=== PATIENT | female | born 1955 | race African-American/Black ===

== ENCOUNTER 2017-02-16 17:31 | Inpatient (IN) | payer OTHER ==
[2017-02-16] MEDS ORDERED: MORPHINE SULFATE 2 MG/ML SYRINGE IVP STA (18:16)
[2017-02-16] MEDS ORDERED: ASPIRIN 81 MG CHEW PO STA (18:16)
[2017-02-16] MEDS ORDERED: NITROGLYCERIN SL TABS 0.4 MG TAB SUBLINGUAL STA (18:16)
[2017-02-16] MEDS ORDERED: ONDANSETRON 4 MG/2 ML VIAL IVP STA ×2 (18:16→20:24)
[2017-02-16] MEDS ORDERED: SODIUM CHLORIDE 0.9% 500 ML IV ONE (18:17)
[2017-02-16 18:31] LABS: Basophils % (A) 0 %; CH 35.5; CHCM 34.1; Eosinophils # (A) 0.1 k/uL (0-0.7); Eosinophils % (A) 2 %; HCT 42.4 % (34.0-46.0); HDW 2.39; HGB 14.7 gm/dL (11.4-16.0); Luc % (Auto) 2; Lymphocytes # (A) 1.5 k/uL (1.0-4.8); Lymphocytes % (A) 32 %; MCH 36.2 pg (25.0-35.0); MCHC 34.8 g/dL (31.0-37.0); MCV 104.3 fL (80.0-100.0); Macrocytosis Slight; Mean Platelet Volume 7.5; Monocytes # (A) 0.2 k/uL (0-1.0); Monocytes % (A) 4 %; Neutrophils # (A) 2.7 k/uL (1.3-7.7); Neutrophils % (A) 59 %; RBC 4.07 m/uL (3.80-5.40); RDW 14.2 % (11.5-15.5); WBC 4.6 k/uL (3.8-10.6)
[2017-02-16 18:40] LABS: ALT 69 U/L (9-52); AST 112 U/L (14-36); Alkaline Phosphatase 72 U/L (38-126); Anion Gap 13 mmol/L; Blood Urea Nitrogen 6 mg/dL (7-17); Calcium 10.5 mg/dL (8.4-10.2); Carbon Dioxide 27 mmol/L (22-30); Chloride 95 mmol/L (98-107); Glucose 151 mg/dL (74-99); Magnesium 1.2 mg/dL (1.6-2.3); Non-African American GFR(MDRD) >60 (>60 ml/min/1.73 sqM); Potassium 3.8 mmol/L (3.5-5.1); Prothrombin Time 10.5 sec (9.0-12.0); Sodium 135 mmol/L (137-145); Total Bilirubin 1.2 mg/dL (0.2-1.3); Total Protein 8.2 g/dL (6.3-8.2)
[2017-02-16] MEDS ORDERED: SODIUM CHLORIDE 0.9% 1,000 ML IV ONE (18:45)
[2017-02-16 18:51] LABS: Creatine Kinase 80 U/L (30-135)
[2017-02-16] MEDS: MAGNESIUM SULFATE-D5W PMX 1 GM in DEXTROSE/WATER 1 100ML.BAG IVPB SCH ×2 (18:55→20:34)
[2017-02-16] MEDS ORDERED: METOPROLOL TARTRATE 5 MG/5 ML VIAL IVP STA (18:55)
[2017-02-16] MEDS ORDERED: HEPARIN SODIUM,PORCINE 5,000 UNIT/ML 1 ML VIAL IV ONE (18:56)
[2017-02-16] MEDS ORDERED: HEPARIN SODIUM,PORCINE 5,000 UNIT/ML 1 ML VIAL IV PRN (18:56)
[2017-02-16] MEDS ORDERED: HEPARIN SODIUM,PORCINE/D5W PMX 25,000 UNIT in DEXTROSE/WATER 1 500ML.BAG IV SCH (19:00)
[2017-02-16 19:04] LABS: Creatine Kinase MB <0.2 ng/mL (0.0-2.4); Troponin I <0.012 ng/mL (0.000-0.034)
--- NOTE | 2017-02-16 19:32 | XR ---
EXAMINATION TYPE: XR chest 2V DATE OF EXAM: 02/16/2017 COMPARISON: 07/07/2015 HISTORY: Chest pain TECHNIQUE: Frontal and lateral views of the chest are obtained. FINDINGS: There is no heart failure nor confluent pneumonic infiltrate. Costophrenic angles are ernie r. There are chest leads. Bony thorax appears intact. IMPRESSION: No active cardiopulmonary disease. No change.
[2017-02-16] MEDS ORDERED: POTASSIUM CHLORIDE ER 20 MEQ TAB.ER PO STA ×2 (20:17→20:24)
[2017-02-16] MEDS ORDERED: POTASSIUM CHLORIDE 20 MEQ, LIDOCAINE 2% INJ 20 MG in SODIUM CHLORIDE 0.9% 100 ML IVPB ONE (20:24)
[2017-02-16] MEDS: SODIUM CHLORIDE 0.9% 1,000 ML IV SCH (20:44)
[2017-02-16] MEDS ORDERED: MORPHINE SULFATE 4 MG/ML SYRINGE IV PRN (20:49)
[2017-02-16] MEDS ORDERED: NALOXONE 0.4 MG/ML 1 ML VIAL IV PRN (20:49)
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
[2017-02-17 00:10] VITALS: BMI 17.4
[2017-02-17 00:19] LABS: Creatine Kinase 78 U/L (30-135)
[2017-02-17 00:32] LABS: Creatine Kinase MB 0.3 ng/mL (0.0-2.4); Troponin I <0.012 ng/mL (0.000-0.034)
[2017-02-17] MEDS: SODIUM CHLORIDE 0.9% 1,000 ML IV SCH ×2 (06:18→17:09)
[2017-02-17 06:22] LABS: Basophils % (A) 1 %; CH 35.2; CHCM 32.9; Eosinophils # (A) 0.1 k/uL (0-0.7); Eosinophils % (A) 2 %; HCT 33.5 % (34.0-46.0); HDW 2.37; Luc # (Auto) 0.09; Luc % (Auto) 2; Lymphocytes # (A) 1.6 k/uL (1.0-4.8); Lymphocytes % (A) 34 %; MCH 35.5 pg (25.0-35.0); MCV 107.5 fL (80.0-100.0); Macrocytosis Moderate; Mean Platelet Volume 7.6; Monocytes # (A) 0.2 k/uL (0-1.0); Monocytes % (A) 5 %; Neutrophils # (A) 2.5 k/uL (1.3-7.7); Neutrophils % (A) 56 %; RBC 3.12 m/uL (3.80-5.40); RDW 14.5 % (11.5-15.5); WBC 4.5 k/uL (3.8-10.6); WBC (Perox) 4.48
[2017-02-17 06:23] LABS: HGB 11.1 gm/dL (11.4-16.0)
[2017-02-17 06:28] LABS: ALT 50 U/L (9-52); AST 75 U/L (14-36); Alkaline Phosphatase 49 U/L (38-126); Anion Gap 6 mmol/L; Blood Urea Nitrogen 4 mg/dL (7-17); Calcium 8.5 mg/dL (8.4-10.2); Carbon Dioxide 27 mmol/L (22-30); Chloride 105 mmol/L (98-107); Glucose 85 mg/dL (74-99); Magnesium 1.7 mg/dL (1.6-2.3); Non-African American GFR(MDRD) >60 (>60 ml/min/1.73 sqM); Potassium 3.6 mmol/L (3.5-5.1); Sodium 138 mmol/L (137-145); Total Bilirubin 0.8 mg/dL (0.2-1.3); Total Protein 5.8 g/dL (6.3-8.2)
[2017-02-17 06:31] LABS: Creatine Kinase 72 U/L (30-135)
[2017-02-17 06:44] LABS: Creatine Kinase MB 0.3 ng/mL (0.0-2.4); Troponin I <0.012 ng/mL (0.000-0.034)
--- NOTE | 2017-02-17 08:23 | CONS ---
This is a 61-year-old lady with a known history of hypertension, alcoholism, smoking and chest discomfort with recurrent hospital admissions. In July of 2014 she had a cardiac cath which revealed mild noncritical disease in the LAD without significant disease in other vessels. I have seen this in the consultation mentioned but I could not really review the report. This lady comes in with a 2-week history of nausea and 1-week history of vomiting, constipation and then a chest pain in the right side of the chest predominantly and also in the epigastric area. She suggests that this may be because of her vomiting that she has been having. Her potassium is 3.8, magnesium is 1.2. Clinically, she appears to be dehydrated. The quality of her chest pain is quite atypical. EKG revealed a diffuse nonspecific ST-T changes which would also be related to electrolyte imbalance. Her nausea persists but she does not have any chest pain to suggest angina at this time. I reviewed her last dobutamine stress test which was from July of 2015 which was a dobutamine echo that was normal. Cardiac cath from July 2014 was normal. She is resting comfortably without symptoms. Medications at home include amlodipine 10 mg daily. PAST MEDICAL HISTORY: This includes hypertension, recurrent hospitalization with chest pain with an episode of her LV function was quite low globally. Possibility of alcohol-related cardiomyopathy should also be considered. She does not have any documented history of myocardial infarction or CVA. She has history of alcoholism with episodes of intoxication in the past. Home mediations included Norvasc and Zoloft. ALLERGIES: None. REVIEW OF SYSTEMS: Remarkable for nausea, vomiting, constipation, atypical chest pain, alcoholism, smoking. Denies any hematemesis, melena, ( ), no fever, chills or cough, expectoration. Upon arrival, her blood pressure and heart rate were high, but blood pressure now is 118/70, pulse rate is about 88 per minute. HEENT: Unremarkable. Fundus was not examined by me. Neck is supple. There is no JVD. I do not hear a carotid bruit. Heart exam reveals S1, S2 heard normally. No significant murmurs. Lungs are clear. Abdomen is soft. There is no tenderness. Bowel sounds are normal. Lower extremities reveal diminished pulses. Central nervous system is grossly within normal limits. EKG reveals sinus mechanism with diffuse ST abnormality which is a nonspecific type. Laboratory data revealed hypomagnesemia and relative hypokalemia and also has history of normal troponin. IMPRESSION: 1. Dehydration secondary to a probable gastritis. 2. History of cardiomyopathy in the past but LV function had improved in July of 2015 echo. 3. Past history of alcoholism. 4. Previous unremarkable cardiac cath but current presentation with chest pain does not necessarily suggest coronary artery disease. RECOMMENDATIONS: Given her presentation, we will correct the magnesium, potassium, hydrate her. Put her on some heparin for 24 hours, perform serial troponins, echocardiogram and based on this, I will make further recommendations. Discussed my thoughts in detail with the patient and with the emergency room physician. Thank you very much for the consult. DEBRA
[2017-02-17] MEDS: ONDANSETRON 4 MG/2 ML VIAL IVP PRN (08:44)
--- NOTE | 2017-02-17 11:20 | ECHOF ---
Referral Reason:chest pain MEASUREMENTS -------- HEIGHT: 172.7 cm WEIGHT: 51.7 kg BP: 137/88 IVSd: 1.2 cm (0.6 - 1.1) LVIDd: 3.7 cm (3.9 - 5.3) LVPWd: 1.2 cm (0.6 - 1.1) IVSs: 1.1 cm LVIDs: 3.4 cm LVPWs: 1.3 cm LA Diam: 2.9 cm (2.7 - 3.8) LAESV Index (A-L): 31.05 ml/m Ao Diam: 2.8 cm (2.0 - 3.7) AV Cusp: 1.9 cm (1.5 - 2.6) LA Diam: 3.7 cm (2.7 - 3.8) MV EXCURSION: 20.521 mm (> 18.000) MV EF SLOPE: 106 mm/s (70 - 150) EPSS: 0.6 cm MV E Garett: 0.45 m/s MV DecT: 193 ms MV A Garett: 0.66 m/s MV E/A Ratio: 0.68 RAP: 5.00 mmHg RVSP: 31.57 mmHg FINDINGS -------- Sinus rhythm. This was a technically adequate study. There is mild concentric left ventricular hypertrophy. Overall left ventricular systolic function is normal with, an EF between 55 - 60 %. The right ventricle is normal in size. LA is midly dilated 29-33ml/m2. The right atrial size is normal. There is mild aortic valve sclerosis. There is no evidence of aortic regurgitation. Mild mitral annular calcification present. Mild mitral regurgitation is present. Mild tricuspid regurgitation present. There is no evidence of pulmonary hypertension. The right ventricular systolic pressure, as measured by Doppler, is 31.57mmHg. There is no pulmonic regurgitation present. The aortic root size is normal. There is no pericardial effusion. CONCLUSIONS -------- 1. There is mild concentric left ventricular hypertrophy. 2. Overall left ventricular systolic function is normal with, an EF between 55 - 60 %. 3. LA is midly dilated 29-33ml/m2. 4. There is mild aortic valve sclerosis. 5. Mild mitral annular calcification present. 6. Mild mitral regurgitation is present. 7. Mild tricuspid regurgitation present. 8. There is no evidence of pulmonary hypertension. 9. The right ventricular systolic pressure, as measured by Doppler, is 31.57mmHg. [employer] WORK[employer] HELPER: Georgette Melendrez RDCS
[2017-02-17] MEDS: SERTRALINE 50 MG TAB PO SCH (12:11)
[2017-02-17] MEDS: amLODIPine 10 MG TAB PO SCH (12:11)
[2017-02-17] MEDS: MAGNESIUM SULFATE-D5W PMX 1 GM in DEXTROSE/WATER 1 100ML.BAG IVPB SCH ×2 (12:11→14:12)
[2017-02-17] MEDS: POTASSIUM CHLORIDE ER 20 MEQ TAB.ER PO SCH ×3 (12:14→19:32)
--- NOTE | 2017-02-17 12:30 | P.PN ---
Subjective Principal diagnosis: Nausea and vomiting This is a 61-year-old female with history of hypertension, EtOH abuse , nicotine dependence, who has had multiple admissions to the hospital. In July 2014 she underwent a cardiac cath which revealed mild coronary artery disease. Patient presented to the hospital with symptoms of a two-week history of nausea and vomiting. Patient was noted to have diffuse nonspecific ST-T wave changes on her EKG and for this reason a cardiology consultation was requested. Upon review of prior EKGs it's noted that the patient had similar EKG changes in the past. Dobutamine echo in July 2015 was negative for any reversible ischemia. Troponins here were negative 3. From cardiology's perspective we'll follow this patient with you now on an as-needed basis only, please don't hesitate to call with any questions. Objective - Vital Signs Vital signs: Vital Signs Temp 97.3 F L 02/17/17 08:00 Pulse 81 02/17/17 12:00 Resp 16 02/17/17 08:00 BP 139/87 02/17/17 12:00 Pulse Ox 100 02/17/17 12:00 Intake & Output 02/16/17 02/17/17 02/17/17 18:59 06:59 18:59 Intake Total 1450 167.843 Balance 1450 167.843 Weight 52.163 kg 52 kg 52 kg Intake: Intake, IV Titration 1450 167.843 Amount Heparin Sodium,Porcine/ 150 167.843 D5w Pmx 25,000 unit In Dextrose/Water 1 500ml. bag @ 12 UNITS/KG/HR 12. 51 mls/hr IV .Q24H [facility] Rx #:[id number] Potassium Chloride 20 meq 500 Lidocaine 2% Inj 20 mg In Sodium Chloride 0.9% 100 ml @ 55.5 mls/hr IVPB ONCE ONE Rx#:[id number] Sodium Chloride 0.9% 1, 800 000 ml @ 100 mls/hr IV . Q10H [facility] Rx#:[id number] Oral 0 Other: Voiding Method Toilet - Exam PHYSICAL EXAMINATION: HEENT: Head is atraumatic, normocephalic. Pupils equal, round. Neck is supple. There is no elevated jugular venous pressure. HEART EXAMINATION: Heart S1, S2 normal. No murmur or gallop heard. CHEST EXAMINATION: Lungs are clear to auscultation and precussion. No chest wall tenderness is noted on palpation or with deep breathing. ABDOMEN: Soft, tenderness noted in the right flank area . Bowel sounds are heard. No organomegaly noted. EXTREMITIES: 2+ peripheral pulses with no evidence of peripheral edema and no calf tenderness noted. NEUROLOGIC patient is awake, alert and oriented -3. . - Labs CBC & Chem 7: 02/17/17 05:44 02/17/17 05:44 Labs: Abnormal Lab Results - Last 24 Hours (Table) 02/16/17 02/16/17 02/16/17 Range/Units 17:55 17:55 23:51 RBC (3.80-5.40) m/uL Hgb (11.4-16.0) gm/dL Hct (34.0-46.0) % MCV 104.3 H (80.0-100.0) fL MCH 36.2 H (25.0-35.0) pg APTT 48.9 H (22.0-30.0) sec Sodium 135 L (137-145) mmol/L Chloride 95 L (98-107) mmol/L BUN 6 L (7-17) mg/dL Glucose 151 H (74-99) mg/dL Calcium 10.5 H (8.4-10.2) mg/dL Magnesium 1.2 L (1.6-2.3) mg/dL AST 112 H (14-36) U/L ALT 69 H (9-52) U/L Total Protein (6.3-8.2) g/dL Albumin 5.2 H (3.5-5.0) g/dL 02/17/17 02/17/17 02/17/17 Range/Units 05:44 05:44 05:44 RBC 3.12 L (3.80-5.40) m/uL Hgb 11.1 L D (11.4-16.0) gm/dL Hct 33.5 L (34.0-46.0) % MCV 107.5 H (80.0-100.0) fL MCH 35.5 H (25.0-35.0) pg APTT 31.9 H (22.0-30.0) sec Sodium (137-145) mmol/L Chloride (98-107) mmol/L BUN 4 L (7-17) mg/dL Glucose (74-99) mg/dL Calcium (8.4-10.2) mg/dL Magnesium (1.6-2.3) mg/dL AST 75 H (14-36) U/L ALT (9-52) U/L Total Protein 5.8 L (6.3-8.2) g/dL Albumin (3.5-5.0) g/dL Assessment and Plan (1) Hypomagnesemia Status: Acute (2) ST segment depression Status: Acute (3) Alcohol intoxication Status: Acute (4) Hyperlipemia Status: Acute (5) Nausea & vomiting Status: Acute (6) Nicotine dependence Status: Acute (7) Noncompliance with medication regimen Status: Acute Plan: Troponins have been negative 3, from cardiology's perspective, we'll follow this patient with you now on an as-needed basis only, please don't hesitate to call with any questions. DNP note has been reviewed, I agree with a documented findings and plan of care. Patient was seen and examined.
[2017-02-17] MEDS ORDERED: ALPRAZolam 0.25 MG TAB PO PRN (13:52)
[2017-02-17] MEDS ORDERED: LORazepam 1 MG TAB PO PRN (15:50)
[2017-02-17] MEDS: PANTOPRAZOLE 40 MG/10 ML VIAL IVP SCH (17:09)
--- NOTE | 2017-02-17 19:19 | US ---
EXAMINATION TYPE: US abdomen complete DATE OF EXAM: 02/17/2017 COMPARISON: NONE CLINICAL HISTORY: stomach pain. Nausea, vomiting EXAM MEASUREMENTS: Liver Length: 15.2 cm Gallbladder Wall: 0.2 cm CBD: 0.5 cm Spleen: 5.6 cm Right Kidney: 10.7 x 3.8 x 4.5 cm Left Kidney: 10.1 x 5.7 x 5.0 cm Pancreas: Obscured by bowel gas Liver: wnl Gallbladder: Appears enlarged, no stones visualized Evidence for sonographic Garcia's sign: No CBD: wnl Spleen: wnl Right Kidney: No hydronephrosis or masses seen otherwise negative exam. Left Kidney: Cyst visualized upper pole measuring 1.0cm Upper IVC: wnl Abd Aorta: wnl IMPRESSION: The gallbladder is large but does not appear enlarged. The diameter is 3.6 cm. No dilated ducts. Otherwise negative exam.
[2017-02-18] MEDS: SODIUM CHLORIDE 0.9% 1,000 ML IV SCH ×3 (03:06→21:04)
[2017-02-18] MEDS: SERTRALINE 50 MG TAB PO SCH (08:37)
[2017-02-18] MEDS: PANTOPRAZOLE 40 MG/10 ML VIAL IVP SCH (08:37)
[2017-02-18] MEDS: amLODIPine 10 MG TAB PO SCH (08:37)
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
[2017-02-18 12:20] LABS: Hepatitis B Surface Ag Index 0.05
[2017-02-18 12:26] LABS: Hepatitis B Core IgM Index 0.05
--- NOTE | 2017-02-18 12:54 | HP ---
DATE OF SERVICE: 02/17/2017 CHIEF COMPLAINT: Chest pain and abdominal pain. HISTORY OF PRESENT ILLNESS: This 61-year-old woman with a past medical history of multiple medical problems including history of CHF, CVA, TIA, diabetes mellitus, hypertension, hyperlipidemia, history of pneumonia, history of gastritis; being followed in the outpatient, is complaining of epigastric and chest pain. The patient came to [facility] and admitted for further evaluation and treatment. The patient also reports some stress. The patient is also a daily smoker. PAST MEDICAL HISTORY: History of CHF, history of CVA, TIA, diabetes mellitus, hypertension, hyperlipidemia and pneumonia. MEDICATIONS PRIOR TO ADMISSION: Home medications are: 1. Zoloft 50 mg p.o. daily. 2. Norvasc 10 mg daily. ALLERGIES: None. FAMILY HISTORY: History of hypertension in the family. SOCIAL HISTORY: History of smoking, occasional alcohol intake. REVIEW OF SYSTEMS: ENT: No diminished hearing or vision. CARDIOVASCULAR: As mentioned earlier. RESPIRATORY: As mentioned earlier. GI: As mentioned earlier. : No dysuria. NERVOUS SYSTEM: No numbness or weakness. IMMUNOLOGY/ALLERGY: No asthma, hayfever. MUSCULOSKELETAL: As mentioned earlier. HEMATOLOGY: No history of anemia. ENDOCRINE: No history of hypothyroidism. CONSTITUTIONAL: As mentioned earlier. PSYCHIATRIC: As mentioned earlier. PHYSICAL EXAMINATION: Alert and oriented x3. Pulse 75, blood pressure 149/90, respirations 16, temperature 96.3, pulse ox 99% on room air. HEENT: Conjunctivae normal. Oral mucosa moist. NECK: No jugular venous distention. No thyroid enlargement, no lymph node enlargement. CARDIOVASCULAR: S1/.S2. RESPIRATIONS: Diminished breath sounds, especially at the bases. A few scattered rhonchi, no crackles. ABDOMEN: Soft. Mild diffuse tenderness in the epigastrium. No mass palpable. LEGS: No edema, no swelling. NERVOUS SYSTEM: No focal deficits. LABS: WBC 4.2, hemoglobin 11.1. Otherwise, total bilirubin is 1.2. ASSESSMENT: 1. Epigastric and chest pain, rule out coronary artery disease. 2. Rule out acute gastritis. 3. Mild coronary artery disease and cardiac catheterization in 2014. 4. History of EtOH. 5. History of cerebrovascular accident/transient ischemic attack. 6. Seizure disorder. RECOMMENDATIONS AND DISCUSSION: This 61-year-old woman presented with multiple complex medical issues. We will monitor the patient closely, continue the current medication, continue the symptomatic treatment, obtain gastroenterology and cardiology consultation. Guarded prognosis because of multiple complex medical issues. Ativan p.r.n. Alcohol cessation has been advised. Proton pump inhibitors. See orders for further details. MTDD
[2017-02-18 12:56] LABS: Hepatitis C Virus IgG Ab Negative (Negative); Hepatitis C Virus IgG Index 0.32
[2017-02-18] MEDS: ACETAMINOPHEN TAB 325 MG TAB PO PRN (18:00)
[2017-02-19] MEDS: SODIUM CHLORIDE 0.9% 1,000 ML IV SCH ×2 (06:03→09:26)
[2017-02-19 08:19] LABS: Basophils % (A) 0 %; CH 35.8; CHCM 32.5; Eosinophils # (A) 0.2 k/uL (0-0.7); Eosinophils % (A) 4 %; HCT 36.1 % (34.0-46.0); HDW 2.39; Luc # (Auto) 0.11; Luc % (Auto) 2; Lymphocytes # (A) 1.3 k/uL (1.0-4.8); Lymphocytes % (A) 25 %; MCH 36.7 pg (25.0-35.0); MCHC 33.2 g/dL (31.0-37.0); MCV 110.5 fL (80.0-100.0); Macrocytosis Marked; Monocytes # (A) 0.3 k/uL (0-1.0); Monocytes % (A) 6 %; Neutrophils # (A) 3.3 k/uL (1.3-7.7); Neutrophils % (A) 63 %; RBC 3.27 m/uL (3.80-5.40); RDW 14.8 % (11.5-15.5); WBC 5.3 k/uL (3.8-10.6); WBC (Perox) 5.54
[2017-02-19 08:25] LABS: Anion Gap 10 mmol/L; Blood Urea Nitrogen 5 mg/dL (7-17); Calcium 9.8 mg/dL (8.4-10.2); Carbon Dioxide 25 mmol/L (22-30); Chloride 103 mmol/L (98-107); Glucose 96 mg/dL (74-99); Magnesium 1.4 mg/dL (1.6-2.3); Non-African American GFR(MDRD) >60 (>60 ml/min/1.73 sqM); Potassium 3.7 mmol/L (3.5-5.1); Sodium 138 mmol/L (137-145)
[2017-02-19] MEDS ORDERED: IV FLUID CONTINUATION 1,000 ML IV ONE (08:44)
[2017-02-19] MEDS ORDERED: PROPOFOL 10 MG/ML 20 ML VIAL IV ONE (08:48)
[2017-02-19] MEDS ORDERED: LIDOCAINE 1% INJ 10MG/ML (20 ML MDV) ONE (08:48)
[2017-02-19 08:50] LABS: Manual Review Performed
[2017-02-19] MEDS: PANTOPRAZOLE 40 MG/10 ML VIAL IVP SCH (09:19)
[2017-02-19] MEDS: amLODIPine 10 MG TAB PO SCH (09:19)
[2017-02-19] MEDS: SERTRALINE 50 MG TAB PO SCH (09:19)
--- NOTE | 2017-02-19 09:23 | P.PCN ---
Date of Procedure: 02/19/17 Preoperative Diagnosis: Postoperative Diagnosis: Procedure(s) Performed: Procedure: Esophagogastroduodenoscopy and biopsy. Preoperative diagnosis: Epigastric pain, nausea and vomiting. Postoperative diagnosis: 1. Small sliding hiatal hernia with no obvious esophagitis or complicated reflux disease. 2. Mild gastritis and duodenitis with no ulcers or gastric outlet obstruction. 3. Multiple biopsies obtained from the duodenum, antrum and esophagus. Preparation sedation: Was provided by anesthesia. Brief clinical history: The patient is a 61-year-old female with a past medical history of chest pain, heart failure, diabetes, hyperlipidemia, hypertension, CVA/TIA, long-standing EtOH consumption/EtOH abuse, and anxiety, presented with chest and epigastric pain with nausea vomiting. Patient stated she had this type of pain that feels like an elephant sitting on her chest sometimes radiates upper esophagus to her throat along with migraines for at least 7 years. Denies fever or chills, hematemesis hematochezia or melena. Unsure if shes had an EGD in the past. Had colonoscopy about 2-3 years ago, to her memory normal. Had 5 pound weight loss over the last month. Her epigastric pain is not necessarily associated with meals but can be sometimes awaken her in the night but not often. Denies diarrhea that has chronic constipation. No changes in medications. She drinks alcohol 4-5 drinks sometimes daily sometimes every few weeks it depends. Last alcohol drink more than a week prior to admission. Ultrasound abdomen showed gallbladder enlarged but no stones. CBD normal. Liver 15 cm. Gallbladder wall 0.2 cm. Hemoglobin 11.1-14.7. White count 4.5. MCV 107. Platelet 279. INR 1.0. BUN 6. Creatinine 0.7. Total bilirubin 0.8- 1.2. AST 75-112. ALT 50-69. Alkaline phosphatase 49-72. Albumin 3.6-5.2. Lipase 179. Troponin less than 0.01 to 3. The details are summarized in the history and physical and dictated consultation. This evaluation is to assess for peptic ulcer disease, gastric outlet obstruction or gastroparesis. Procedure: With the patient on her left lateral decubitus position and after informed consent and adequate sedation, I passed the Olympus-GIF 160 video upper endoscope through the cricopharyngeus down the esophagus. GE junction was around 36 cm from the incisors and there was a small sliding hiatal hernia. The esophagus did not show any obvious erosions, ulcers, strictures or Grimaldo 's esophagus. The endoscope was then passed into the stomach which was insufflated with air and inspected in detail including the retroflex view in the cardia. There was minimal mottling and erythema in the antrum but no ulcers or erosions. Pyloric channel, duodenal bulb, post bulbar area and descending duodenum showed minimal erythema. There were no ulcers, gastric outlet obstruction or any evidence of gastroparesis. I obtained biopsies from the duodenum, antrum and esophagus then the endoscope was withdrawn. The patient tolerated the procedure well. Plan: The patient was reassured. Will await biopsy results. Will continue symptomatic treatment and acid suppression. Will allow diet as tolerated. Further plans based on her course and biopsy results. Will keep you updated on her progress. Implants: Indications for Procedure: Operative Findings: Description of Procedure:
[2017-02-19] MEDS: LACTATED RINGERS 1,000 ML IV SCH (09:26)
[2017-02-19] MEDS ORDERED: Magnesium Replacement Protocol 1 EACH MISC MISCELLANE PRN (11:59)
[2017-02-19] MEDS: MAGNESIUM SULFATE-D5W PMX 1 GM in DEXTROSE/WATER 1 100ML.BAG IVPB SCH ×3 (12:40→15:03)
[2017-02-19] MEDS: MAGNESIUM OXIDE 400 MG TAB PO SCH (21:10)
[2017-02-19] MEDS: ACETAMINOPHEN TAB 325 MG TAB PO PRN ×2 (21:21)
[2017-02-19] MEDS: ONDANSETRON 4 MG/2 ML VIAL IVP PRN (21:21)
[2017-02-19 22:38] VITALS: RESP 16
--- NOTE | 2017-02-19 23:51 | P.PN ---
Subjective Principal diagnosis: Nausea vomiting and abdominal pain This is a 61-year-old female with history of hypertension, EtOH abuse , nicotine dependence, who has had multiple admissions to the hospital presented to the hospital with symptoms of a two-week history of nausea and vomiting. In July 2014 she underwent a cardiac cath which revealed mild coronary artery disease. EGD on 02/19/2017 showed: 1. Small sliding hiatal hernia with no obvious esophagitis or complicated reflux disease. 2. Mild gastritis and duodenitis with no ulcers or gastric outlet obstruction. Today patient denied any complaints no abdominal pain. Complaints of nauseaor vomiting. No chest pain no short of breath. No acute overnight issues. Patient underwent EGD today ROS CONSTITUTIONAL: No fever, no malaise, no fatigue. HEENT: No recent visual problems or hearing problems. Denied any sore throat. CARDIOVASCULAR: No chest pain, orthopnea, PND, no palpitations, no syncope. PULMONARY: , no hemoptysis. GASTROINTESTINAL: No diarrhea, epigastric abdominal pain and nausea no vomiting NEUROLOGICAL: No headaches, no weakness, no numbness. HEMATOLOGICAL: Denies any bleeding or petechiae. GENITOURINARY: Denies any burning micturition, frequency, or urgency. MUSCULOSKELETAL/RHEUMATOLOGICAL: Denies any joint pain, swelling, or any muscle pain. ENDOCRINE: Denies any polyuria or polydipsia. The rest of the 14-point review of systems is negative Objective - Vital Signs Vital signs: Vital Signs Temp 97.4 F L 02/19/17 15:06 Pulse 99 02/19/17 15:06 Resp 18 02/19/17 15:06 BP 102/65 02/19/17 15:06 Pulse Ox 100 02/19/17 15:06 Intake & Output 02/19/17 02/19/17 02/20/17 06:59 18:59 06:59 Intake Total 160 140 Output Total 200 Balance -40 140 Weight 52.3 kg Intake: IV 100 Intake, IV Titration 160 40 Amount Lactated Ringers 1,000 ml 40 @ 20 mls/hr IV .Q24H JAYA Rx#:[id number] Sodium Chloride 0.9% 1, 160 000 ml @ 100 mls/hr IV . Q10H JAYA Rx#:[id number] Oral 0 Output: Urine 200 Other: Voiding Method Toilet Toilet # Voids 2 0 - Exam .PHYSICAL EXAMINATION: HEENT: Head is atraumatic, normocephalic. Pupils equal, round. Neck is supple. There is no elevated jugular venous pressure. HEART EXAMINATION: Heart S1, S2 normal. No murmur or gallop heard. CHEST EXAMINATION: Lungs are clear to auscultation and precussion. No chest wall tenderness is noted on palpation or with deep breathing. ABDOMEN: Soft, tenderness noted in the right flank area . Bowel sounds are heard. No organomegaly noted. EXTREMITIES: 2+ peripheral pulses with no evidence of peripheral edema and no calf tenderness noted. NEUROLOGIC patient is awake, alert and oriented -3. - Labs CBC & Chem 7: 02/19/17 08:01 02/19/17 07:58 Labs: Abnormal Lab Results - Last 24 Hours (Table) 02/19/17 02/19/17 Range/Units 07:58 08:01 RBC 3.27 L (3.80-5.40) m/uL MCV 110.5 H (80.0-100.0) fL MCH 36.7 H (25.0-35.0) pg Plt Count 132 L (150-450) k/uL BUN 5 L (7-17) mg/dL Magnesium 1.4 L (1.6-2.3) mg/dL Assessment and Plan Plan: #1 epigastric abdominal pain secondary to gastritis and duodenitis. #2 chest pain ruled out acute coronary syndrome. Serial troponins negative. #3. Severe Alcohol abuse. counseled extensively #4 nicotine addiction #5 noncompliance with medications #6 history of seizures #7 history of nonobstructive coronary artery disease #8 hypertension #9 noncompliance DVT prophylaxis Plan: Patiently continued on Protonix. Continue to monitor for alcohol withdrawal symptoms. Cardiology records no further workup at this time. We will replace magnesium and follow closely. Further recommendations based on the clinical course. Patient is non-complaint with medications. Time with Patient: Greater than 30
[2017-02-20] MEDS: HEPARIN SODIUM,PORCINE 5,000 UNIT/ML 1 ML VIAL SQ SCH ×3 (01:08→16:33)
[2017-02-20] MEDS: SODIUM CHLORIDE 0.9% 1,000 ML IV SCH ×2 (05:07→16:33)
[2017-02-20] MEDS: amLODIPine 10 MG TAB PO SCH (09:14)
[2017-02-20] MEDS: MAGNESIUM OXIDE 400 MG TAB PO SCH (09:14)
[2017-02-20] MEDS: PANTOPRAZOLE 40 MG/10 ML VIAL IVP SCH (09:14)
[2017-02-20 11:20] VITALS: PULSE 82
[2017-02-20] MEDS ORDERED: THIAMINE 100 MG TAB PO SCH (12:00)
[2017-02-20] MEDS: LACTATED RINGERS 1,000 ML IV SCH (12:03)
[2017-02-20] MEDS: SERTRALINE 50 MG TAB PO SCH (12:09)
[2017-02-20 16:32] VITALS: BP 128/68; TEMP 97.6
--- NOTE | 2017-02-22 01:03 | P.DS ---
Providers Date of admission: 02/16/17 20:49 Expected date of discharge: 02/20/17 Attending physician: Paco Ferris Consults: 02/16/17 20:49 Consult Physician Stat Consulting Provider: Jairo Cervantes Consult Reason/Comments: Chest pain with EKG changes Do you want consulting provider notified?: Already Contacted 02/17/17 13:51 Consult Physician Urgent Consulting Provider: Cassie Alfaro Consult Reason/Comments: stomach pain Do you want consulting provider notified?: Yes Primary care physician: [facility] Hospital Course: Discharge diagnosis #1 epigastric abdominal pain secondary to gastritis and duodenitis. #2 chest pain ruled out acute coronary syndrome. Serial troponins negative. #3. Severe Alcohol abuse. counseled extensively #4 nicotine addiction #5 noncompliance with medications #6 history of seizures #7 history of nonobstructive coronary artery disease #8 hypertension #9 noncompliance DVT prophylaxis Hospital course : This is a 61-year-old female with history of hypertension, EtOH abuse , nicotine dependence, who has had multiple admissions to the hospital presented to the hospital with symptoms of a two-week history of nausea and vomiting. In July 2014 she underwent a cardiac cath which revealed mild coronary artery disease. EGD on 02/19/2017 showed: 1. Small sliding hiatal hernia with no obvious esophagitis or complicated reflux disease. 2. Mild gastritis and duodenitis with no ulcers or gastric outlet obstruction. Today patient denied any complaints no abdominal pain. Complaints of nauseaor vomiting. No chest pain no short of breath. No acute overnight issues. Patient was continued on Protonix. Continued to monitor for alcohol withdrawal symptoms. Cardiology recommends no further workup at this time. replace magnesium, Patient is non-complaint with medications. Patient advised to be complaint with her medications. Otherwise patient is stable to be discharged home. PHYSICAL EXAMINATION: Patient is lying in the bed comfortably, no acute distress, awake alert and oriented.. HEENT: Normocephalic. Neck is supple. Pupils reactive. Nostrils clear. Oral cavity is moist. Ears reveal no drainage. Neck reveals no JVD, carotid bruits, or thyromegaly. CHEST EXAMINATION: Trachea is central. Symmetrical expansion. Lung higgins clear to auscultation and percussion. CARDIAC: Normal S1, S2 with no gallops. No murmurs ABDOMEN: Soft. Bowel sounds normal. No organomegaly. No abdominal bruits. Extremities reveal no edema. No clubbing or cyanosis Neurologically awake, alert, oriented x3 with well-coordinated movements. Skin: no rash or skin lesions Musculoskeletal: no joint swelling or deformity. Patient Condition at Discharge: Stable Plan - Discharge Summary New Discharge Prescriptions: New Magnesium Oxide [Mag-Ox] 400 mg PO BID #10 tab Pantoprazole Sodium [Protonix] 40 mg PO AC-BRKFST #30 tablet. Thiamine [Vitamin B-1] 100 mg PO DAILY@1200 #30 tab Continue amLODIPine [Norvasc] 10 mg PO DAILY Sertraline HCl [Zoloft] 50 mg PO DAILY Discharge Medication List amLODIPine [Norvasc] 10 mg PO DAILY 01/12/16 [History] Sertraline HCl [Zoloft] 50 mg PO DAILY 02/16/17 [History] Magnesium Oxide [Mag-Ox] 400 mg PO BID #10 tab 02/20/17 [Rx] Pantoprazole Sodium [Protonix] 40 mg PO AC-BRKFST #30 tablet. 02/20/17 [Rx] Thiamine [Vitamin B-1] 100 mg PO DAILY@1200 #30 tab 02/20/17 [Rx] Follow up Appointment(s)/Referral(s): Tyrone Bynum MD [Primary Care Provider] - 1-2 days Patient Instructions/Handouts: Gastritis (DC) Discharge Disposition: HOME SELF-CARE
== END 2017-02-20 17:23 | disposition home or self-care (01) | DRG 392 ==
LOC: EC 17:31 → 6SEL 20:49
PROVIDERS: ADMIT Internal Medicine; ATTEND Internal Medicine
PROC: 0DB58ZX Excision of Esophagus, Via Natural or Artificial Opening Endoscopic, Diagnostic (ICD-10-PCS; 2017-02-19)
PROC: 0DB78ZX Excision of Stomach, Pylorus, Via Natural or Artificial Opening Endoscopic, Diagnostic (ICD-10-PCS; 2017-02-19)
PROC: 0DB98ZX Excision of Duodenum, Via Natural or Artificial Opening Endoscopic, Diagnostic (ICD-10-PCS; principal; 2017-02-19 08:00)
DX: K29.70 Gastritis, unspecified, without bleeding (principal); E83.42 Hypomagnesemia; I10 Essential (primary) hypertension; I25.10 Atherosclerotic heart disease of native coronary artery without angina pectoris; K29.80 Duodenitis without bleeding; K44.9 Diaphragmatic hernia without obstruction or gangrene; G40.909 Epilepsy, unspecified, not intractable, without status epilepticus; E86.0 Dehydration; R73.09 Other abnormal glucose; E87.6 Hypokalemia; R74.0 Nonspecific elevation of levels of transaminase and lactic acid dehydrogenase [LDH]; K59.09 Other constipation; E78.5 Hyperlipidemia, unspecified; R07.89 Other chest pain; K82.8 Other specified diseases of gallbladder; F10.10 Alcohol abuse, uncomplicated; R94.31 Abnormal electrocardiogram [ECG] [EKG]; F41.0 Panic disorder [episodic paroxysmal anxiety]; R41.3 Other amnesia; F41.9 Anxiety disorder, unspecified; R63.4 Abnormal weight loss; R20.0 Anesthesia of skin; G43.909 Migraine, unspecified, not intractable, without status migrainosus; F17.210 Nicotine dependence, cigarettes, uncomplicated; Z79.899 Other long term (current) drug therapy; Z87.01 Personal history of pneumonia (recurrent); Z86.73 Personal history of transient ischemic attack (TIA), and cerebral infarction without residual deficits; Z82.49 Family history of ischemic heart disease and other diseases of the circulatory system; Z91.19 Patient's noncompliance with other medical treatment and regimen; Z91.14 Patient's other noncompliance with medication regimen; Z71.3 Dietary counseling and surveillance; Z90.710 Acquired absence of both cervix and uterus; Z71.41 Alcohol abuse counseling and surveillance of alcoholic; Z63.79 Other stressful life events affecting family and household; Z56.0 Unemployment, unspecified; Z86.79 Personal history of other diseases of the circulatory system; Z87.828 Personal history of other (healed) physical injury and trauma
CPT/HCPCS: 36415; 43239; 71020; 76700; 80048; 80053; 80074; 82550; 82553; 83690; 83735; 83880; 84443; 84484; 85025; 85610; 85730; 88305; 88342; 93005; 93306; 94760; 96365; 96368; 96375; 96376; 99291

== ENCOUNTER 2019-01-26 17:32 | Emergency (ER) | payer OTHER ==
[2019-01-26 17:48] VITALS: RESP 18; TEMP 98.7
[2019-01-26] MEDS ORDERED: SODIUM CHLORIDE 0.9% 1,000 ML IV STA ×2 (17:49)
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
[2019-01-26 18:19] LABS: Basophils % (A) 0 %; Eosinophils # (A) 0.1 k/uL (0-0.7); Eosinophils % (A) 2 %; HCT 39.4 % (34.0-46.0); HGB 12.9 gm/dL (11.4-16.0); Lymphocytes # (A) 1.3 k/uL (1.0-4.8); Lymphocytes % (A) 22 %; MCH 34.8 pg (25.0-35.0); MCHC 32.6 g/dL (31.0-37.0); MCV 106.8 fL (80.0-100.0); Macrocytosis Moderate; Mean Platelet Volume 8.4; Monocytes # (A) 0.5 k/uL (0-1.0); Monocytes % (A) 9 %; Neutrophils # (A) 3.7 k/uL (1.3-7.7); Neutrophils % (A) 64 %; Platelet Count 237 k/uL (150-450); RBC 3.69 m/uL (3.80-5.40); WBC 5.7 k/uL (3.8-10.6)
[2019-01-26 18:56] LABS: INR 0.9 (<1.2); Partial Thromboplastin Time 24.1 sec (22.0-30.0); Prothrombin Time 9.9 sec (9.0-12.0)
--- NOTE | 2019-01-26 19:03 | XR ---
EXAMINATION: XR chest 2V DATE AND TIME: 01/26/2019 6:25 PM CLINICAL INDICATION: PHH; Weakness TECHNIQUE: Departmental protocol COMPARISON: 02/16/2017 FINDINGS: The lungs are clear. The pleural spaces are negative. The cardiac silhouette is not enlarged. The remainder of the mediastinal silhouette is unremarkable. The skeletal structures and soft tissues are negative for acute findings. Remodeled right posterior ninth rib fracture noted, consistent with remote fracture, having occurred after the comparison study. IMPRESSION: No acute process.
[2019-01-26 19:19] LABS: ALT 12 U/L (9-52); AST 16 U/L (14-36); African American GFR (CKD) >90 (>60 ml/min/1.73 sqM); Alkaline Phosphatase 42 U/L (38-126); Anion Gap 12 mmol/L; Blood Urea Nitrogen 11 mg/dL (7-17); Calcium 9.2 mg/dL (8.4-10.2); Carbon Dioxide 23 mmol/L (22-30); Chloride 101 mmol/L (98-107); Creatine Kinase 24 U/L (30-135); Glucose 108 mg/dL (74-99); Magnesium 1.3 mg/dL (1.6-2.3); Potassium 3.5 mmol/L (3.5-5.1); Sodium 136 mmol/L (137-145); Total Bilirubin 0.6 mg/dL (0.2-1.3); Total Protein 6.5 g/dL (6.3-8.2)
[2019-01-26] MEDS ORDERED: MAGNESIUM SULFATE-D5W PMX 1 GM in DEXTROSE/WATER 1 100ML.BAG IVPB ONE (19:28)
--- NOTE | 2019-01-26 20:49 | CT ---
EXAMINATION TYPE: CT abdomen pelvis w con DATE OF EXAM: 01/26/2019 COMPARISON: 04/07/2015 HISTORY: abdominal pain and weakness CT DLP: 442.2 mGycm Automated exposure control for dose reduction was used. TECHNIQUE: Helical acquisition of images was performed from the lung bases through the pelvis. CONTRAST: Performed without Oral Contrast and with IV Contrast, patient injected with 100 mL of Isovu e 300. FINDINGS: LUNG BASES: No acute process. However, mild cardiomegaly is noted. LIVER/GB: No significant abnormality is appreciated. PANCREAS: No significant abnormality is seen. SPLEEN: No significant abnormality is seen. ADRENALS: No significant abnormality is seen. KIDNEYS: No significant abnormality is seen. FREE AIR: No free air is visualized. RETROPERITONEAL ADENOPATHY: None visualized REPRODUCTIVE ORGANS: No significant abnormality is seen URINARY BLADDER: No significant abnormality is seen. PELVIC ADENOPATHY: None visualized. OSSEOUS STRUCTURES: No significant abnormality is seen. BOWEL: The gastric antrum shows hypodense circumferential mural thickening consistent with edematous thickening, which can correlate with a clinical diagnosis of gastritis and can be confirmed with dire ct visualization. There is a differential diagnosis for this finding, but gastritis is the favored et iology radiographically. The appendix has normal appearance. OTHER: No acute vascular findings. IMPRESSION: GASTRIC ANTRUM MURAL THICKENING DISCUSSED.
[2019-01-26 21:55] LABS: Appearance,Urine Cloudy (Clear); Bacteria,Urine Occasional /hpf; Bilirubin,Urine 1+ (Negative); Blood,Urine Small (Negative); Color,Urine Yellow; Glucose,Urine (UA) Negative (Negative); Ketones,Urine 3+ (Negative); Leukocyte Esterase,Urine Large (Negative); Mucus,Urine Rare /hpf; Nitrite,Urine Negative (Negative); PH, Urine 6.5 (5.0-8.0); Protein,Urine 1+ (Negative); RBC,Urine 32 /hpf (0-5); Squamous Epithelial Cell,Urine 5 /hpf (0-4); WBC,Urine 25 /hpf (0-5)
[2019-01-26 21:57] LABS: Specific Gravity,Urine >1.050 (1.001-1.035)
[2019-01-26 22:38] VITALS: BP 155/99; PULSE 84
== END 2019-01-26 22:45 | disposition home or self-care (01) ==
LOC: SUPCPDRO 17:32 → EC 17:32
DX: E83.42 Hypomagnesemia (principal); K29.00 Acute gastritis without bleeding; E86.0 Dehydration; I11.0 Hypertensive heart disease with heart failure; I50.9 Heart failure, unspecified; R00.0 Tachycardia, unspecified; R07.89 Other chest pain; F17.200 Nicotine dependence, unspecified, uncomplicated; Z95.818 Presence of other cardiac implants and grafts; Z86.73 Personal history of transient ischemic attack (TIA), and cerebral infarction without residual deficits; Z82.49 Family history of ischemic heart disease and other diseases of the circulatory system
CPT/HCPCS: 36415; 93005; 83880; 80053; 82550; 83605; 83690; 83735; 84484; 85025; 85610; 85730; 81001; 71046; 74177; 99285; 96365; 96361 ×4; J3475; Q9967

== ENCOUNTER 2020-12-18 12:53 | Inpatient (IN) | payer OTHER ==
[2020-12-18] MEDS ORDERED: NITROGLYCERIN SL TABS 0.4 MG TAB SUBLINGUAL STA ×3 (13:17)
[2020-12-18] MEDS ORDERED: ASPIRIN 81 MG PO STA (13:17)
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
[2020-12-18] MEDS ORDERED: HEPARIN SODIUM 1,000 UN/ML (10ML VL) IV ONE (13:37)
[2020-12-18] MEDS ORDERED: HEPARIN SODIUM 1,000 UN/ML (10ML VL) IV PRN (13:37)
--- NOTE | 2020-12-18 13:38 | XR ---
EXAMINATION TYPE: XR chest 1V portable DATE OF EXAM: 12/18/2020 COMPARISON: Chest x-ray 01/26/2019 HISTORY: Chest pain TECHNIQUE: Single frontal view of the chest is obtained. FINDINGS: There is no focal air space opacity, pleural effusion, or pneumothorax seen. The cardiac silhouette size is stable. There are overlying leads, patient is rotated. There may be spinal curvat ure. Old right posterior rib fracture present within either level as on prior shows an irregular appe arance. Prominent lung volumes may be indicative of COPD. Aorta is dense. The osseous structures are intact. IMPRESSION: No acute process.
[2020-12-18] MEDS ORDERED: HEPARIN SOD,PORK IN 0.45% NACL 25,000 UNIT in 0.45% NACL 1 250ML.BAG IV SCH (13:45)
[2020-12-18 13:53] LABS: Basophils % (A) 0 %; Eosinophils # (A) 0.1 k/uL (0-0.7); Eosinophils % (A) 2 %; HCT 48.7 % (34.0-46.0); HGB 16.7 gm/dL (11.4-16.0); Lymphocytes # (A) 2.1 k/uL (1.0-4.8); Lymphocytes % (A) 32 %; MCH 36.4 pg (25.0-35.0); MCHC 34.4 g/dL (31.0-37.0); MCV 105.7 fL (80.0-100.0); Macrocytosis Moderate; Mean Platelet Volume 8.3; Monocytes # (A) 0.3 k/uL (0-1.0); Monocytes % (A) 5 %; Neutrophils # (A) 3.8 k/uL (1.3-7.7); Neutrophils % (A) 59 %; Platelet Count 222 k/uL (150-450); RDW 14.7 % (11.5-15.5); WBC 6.5 k/uL (3.8-10.6)
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
[2020-12-18 14:01] LABS: Albumin 5.2 g/dL (3.5-5.0); Calcium 9.8 mg/dL (8.4-10.2); Magnesium 1.8 mg/dL (1.6-2.3); Total Bilirubin 0.9 mg/dL (0.2-1.3); Total Protein 8.3 g/dL (6.3-8.2)
[2020-12-18] MEDS ORDERED: LIDOCAINE 1% INJ 10MG/ML (20 ML MDV) SQ ONE (14:03)
[2020-12-18] MEDS ORDERED: fentaNYL (PF) 50 MCG/ML 2 ML AMP IV ONE (14:05)
[2020-12-18] MEDS ORDERED: MIDAZOLAM 2 MG/2 ML VIAL IV ONE (14:05)
[2020-12-18] MEDS ORDERED: IV FLUID CONTINUATION 1,000 ML IV ONE (14:05)
[2020-12-18 14:11] LABS: Potassium 5.4 mmol/L (3.5-5.1)
[2020-12-18] MEDS ORDERED: IOPAMIDOL-370 125ML BTL INJ ONE (14:16)
[2020-12-18] MEDS ORDERED: RX INFO: IV CONTRAST WAS GIVEN 1 EACH MISC MISCELLANE PRN (14:19)
--- NOTE | 2020-12-18 14:32 | P.CARDCATH ---
Date of Procedure: 12/18/20 Preoperative Diagnosis: Suspected STEMI Postoperative Diagnosis: Mild coronary artery disease Procedure(s) Performed: Left heart catheterization with left ventriculography Description of Procedure: HISTORY: This is a 65-year-old female with history of hypertension who presented to the emergency room with complaints of chest pain for the last week or so. She was having discomfort described as 8-9 on a scale of 1-10. EKG showed mild ST elevation in V1, V2 and the attached ST depressions in the inferolateral leads. In view of ongoing chest pain and abnormal EKG, patient is advised to have a cardiac catheterization for definitive diagnosis and further intervention as needed CONSENT:I have discussed the risks, benefits and alternative therapies for the above-mentioned procedure and for both sedation/analgesia as well as necessary blood product administration, if indicated, as they pertain to this patient. The patient has indicated understanding and acceptance of the risks and procedures discussed. PROCEDURE: Patient was brought to the lab in a fasting state. Patient was given some IV sedation. The right groin is infiltrated with lidocaine and right femoral artery was entered using Seldinger technique. A 6-Luxembourgish catheter was left in place and selective coronary arteriography and left ventriculography was performed. Patient tolerated the procedure well. Femoral angiogram was performed and Angio-Seal was applied for hemostasis. No immediate complications were noted and patient was transferred to [facility] in a stable condition Conscious Sedation: Versed 1mg Fentanyl 50 g Duration: 17minutes HEMODYNAMICS: The aortic pressure is 110/70. The left ventricle end-diastolic pressure is about 4-5. No gradient across the aortic valve SELECTIVE CORONARY ARTERIOGRAPHY: LEFT MAIN: Normal length and free of occlusive disease THE LEFT ANTERIOR DESCENDING CORONARY ARTERY: . Good caliber vessel wrapping around echo without any significant focal lesions THE LEFT CIRCUMFLEX AND IS CORONARY ARTERY: . This is a fair caliber vessel giving rise to good-sized OM branch. Free of any significant occlusive disease THE RIGHT CORONARY ARTERY: . Dominant vessel with mild disease in the proximal portion and also in the distal portion with about 30% luminal narrowing LEFT VENTRICULOGRAPHY: . This revealed normal-sized cardiac silhouette with good systolic function FINAL IMPRESSION: , Mild coronary artery disease without any critical lesion. Preserved LV function PLAN: Maximum medical therapy and this factor modification. Investigate for other causes of chest pain PROGNOSIS: Fair
[2020-12-18 15:26] LABS: Partial Thromboplastin Time 107.5 sec (22.0-30.0)
[2020-12-18 17:23] LABS: Glucose,Whole Blood 73 mg/dL (75-99)
--- NOTE | 2020-12-18 18:47 | ECHOF ---
Referral Reason: MEASUREMENTS -------- HEIGHT: 63.0 cm WEIGHT: 115.0 kg BP: IVSd: 1.0 cm (0.6 - 1.1) LVIDd: 3.3 cm (3.9 - 5.3) LVPWd: 1.3 cm (0.6 - 1.1) IVSs: 1.4 cm LVIDs: 2.8 cm LVPWs: 1.5 cm Ao Diam: 2.9 cm (2.0 - 3.7) AV Cusp: 1.7 cm (1.5 - 2.6) LA Diam: 2.7 cm (2.7 - 3.8) MV EXCURSION: 14.317 mm (> 18.000) MV EF SLOPE: 62 mm/s (70 - 150) EPSS: 1.1 cm MV E Garett: 0.64 m/s MV DecT: 202 ms MV A Garett: 0.93 m/s MV E/A Ratio: 0.69 RAP: 5.00 mmHg RVSP: 22.62 mmHg FINDINGS -------- Sinus rhythm. This was a technically adequate study. The left ventricular size is normal. There is mild concentric left ventricular hypertrophy. Overa ll left ventricular systolic function is mild-moderately impaired with, an EF between 40 - 45 %. Ba chris inferior LV wall motion is hypokinetic. Basal inferoseptal LV wall motion is hypokinetic. M id inferior LV wall motion is hypokinetic. The RV was not well visualized. The left atrial size is normal. The right atrial size is normal. The aortic valve is trileaflet, and appears structurally normal. No aortic stenosis or regurgitation. The mitral valve is normal. Mild mitral regurgitation is present. The tricuspid valve appears structurally normal. Mild tricuspid regurgitation present. Right vent ricular systolic pressure is normal at < 35 mmHg. The pulmonic valve was not well visualized. The aortic root size is normal. There is no pericardial effusion. CONCLUSIONS -------- 1. There is mild concentric left ventricular hypertrophy. 2. Overall left ventricular systolic function is mild-moderately impaired with, an EF between 40 - 45 %. 3. Basal inferior LV wall motion is hypokinetic. 4. Basal inferoseptal LV wall motion is hypokinetic. 5. Mid inferior LV wall motion is hypokinetic. 6. The left atrial size is normal. 7. The aortic valve is trileaflet, and appears structurally normal. No aortic stenosis or regurgitati on. 8. Mild mitral regurgitation is present. 9. Mild tricuspid regurgitation present. 10. There is no pericardial effusion. WEIGHER ALLOY: Carmen Collier RDCS
[2020-12-18 20:07] LABS: Glucose,Whole Blood 105 mg/dL (75-99)
[2020-12-18] MEDS: FAMOTIDINE 20 MG TAB PO SCH (20:08)
[2020-12-18] MEDS: prednisoLONE ACETATE 1% OPHTH DROPS 5 ML BTL RIGHT EYE SCH (20:08)
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
[2020-12-19 05:58] LABS: Glucose,Whole Blood 110 mg/dL (75-99)
[2020-12-19] MEDS ORDERED: ONDANSETRON 4 MG/2 ML VIAL IVP PRN (07:12)
[2020-12-19] MEDS ORDERED: ACETAMINOPHEN TAB 325 MG TAB PO PRN (07:12)
[2020-12-19] MEDS: prednisoLONE ACETATE 1% OPHTH DROPS 5 ML BTL RIGHT EYE SCH ×2 (08:08→20:11)
[2020-12-19] MEDS: FAMOTIDINE 20 MG TAB PO SCH (08:08)
[2020-12-19 08:58] LABS: Basophils % (A) 0 %; Eosinophils # (A) 0.1 k/uL (0-0.7); Eosinophils % (A) 1 %; HCT 42.1 % (34.0-46.0); HGB 14.3 gm/dL (11.4-16.0); Lymphocytes # (A) 1.5 k/uL (1.0-4.8); Lymphocytes % (A) 30 %; MCH 35.9 pg (25.0-35.0); MCHC 33.9 g/dL (31.0-37.0); MCV 105.8 fL (80.0-100.0); Macrocytosis Moderate; Mean Platelet Volume 9.1; Monocytes # (A) 0.3 k/uL (0-1.0); Monocytes % (A) 7 %; Neutrophils % (A) 60 %; Platelet Count 167 k/uL (150-450); RBC 3.98 m/uL (3.80-5.40); RDW 14.8 % (11.5-15.5)
[2020-12-19 09:14] LABS: Potassium 3.8 mmol/L (3.5-5.1)
[2020-12-19 09:28] LABS: Prothrombin Time 10.6 sec (9.0-12.0)
[2020-12-19] MEDS: ATORVASTATIN 20 MG TAB PO SCH (10:31)
[2020-12-19] MEDS: amLODIPine 5 MG TAB PO SCH (10:32)
[2020-12-19] MEDS: METOPROLOL TARTRATE 12.5 MG TAB PO SCH ×2 (10:32→20:11)
[2020-12-19 11:44] LABS: Glucose,Whole Blood 104 mg/dL (75-99)
[2020-12-19] MEDS: PANTOPRAZOLE 40 MG TABLET PO SCH ×2 (11:52→17:08)
--- NOTE | 2020-12-19 12:59 | P.PN ---
Subjective This is a pleasant 65-year-old female past medical history significant for hypertension, dyslipidemia, type 2 diabetes mellitus, chronic nicotine dependence and alcoholism. She does not follow with a spiritual minister. She presented to the hospital on 12/18 with symptoms of chest discomfort in the midsternal region associated with shortness of breath and palpitations. According to the previous 2 weeks intermittently. They are not exacerbated by exertion or activity. She has not been following with her primary care physician over the previous 6 months due to a disagreement. Therefore she states she has not been taking any of her prescribed medications. EKG on arrival to the emergency department revealed sinus mechanism heart rate of [address] elevation noted in the anterior leads with T-wave inversion in the high lateral leads. Review of old records indicate in July 2014 she underwent cardiac catheterization which revealed a mild noncritical disease in the LAD without significant disease in other vessels. Echocardiogram obtained at that time revealed preserved LV systolic function with ejection fraction 55-60%, mild MR and mild TR noted. Previously she was on lisinopril 10 mg daily. Currently not taking any medications. It was recommended to under cardiac catheterization. 12/18: Cardiac catheterization revealed mild coronary artery disease without any critical lesion. Preserved LV function. Echocardiogram read as EF 40-45%, Basal inferior, inferoseptal LV wall hypokinetic, Mid inferior LV wall hypokinetic, mild mitral regurgitation, mild tricuspid regurgitation 12/19/20: Patient seen and examined at bedside, no acute distress. She denies chest pain and shortness of breath this morning. Blood pressure continues to be elevated. SBP 150-170s. Telemetry reviewed she is in sinus rhythm HR 80-90s. Laboratory data reviewed, WBC 5, hemoglobin 14.3, platelets 167, sodium 135, potassium 3.8, BUN 18, serum creatinine 0.1, troponin negative 2 PHYSICAL EXAMINATION Blood pressure 172/104 heart rate 86 afebrile and maintaining oxygen saturation 90% on room air CONSTITUTIONAL: No apparent distress. Frail. HEENT: Head is normocephalic. No JVD. No carotid bruit. CHEST EXAMINATION: Lungs are clear to auscultation. No chest wall tenderness is noted on palpation or with deep breathing. HEART EXAMINATION: Regular rate and rhythm. S1, S2 heard. No murmurs, gallops or rub. ABDOMEN: Soft, nontender. Positive bowel sounds. EXTREMITIES: No lower extremity edema and no calf tenderness. Right groin cath site, is clean, no hematoma. 2+ peripheral pulses NEUROLOGIC EXAMINATION: Patient is awake, alert and oriented x3. ASSESSMENT Chest pain, EKG changes concerning for ischemia. Underwent cardiac c atheterization with mild coronary artery disease without any critical lesion. Troponin negative x 2. Hypertension Dyslipidemia Alcoholism History of Type 2 Diabetes Chronic nicotine dependence PLAN: -Repeat troponin this morning was negative -Cardiac catheterization revealed normal sized cardiac sillhouette with preserved LV function, We will repeat limited echocardiogram with contrast -Start metoprolol 12.5mg daily, amlodipine 5mg daily -Start atorvastatin 20mg daily -Further recommendations based on clinical course. Objective - Vital Signs Vital signs: Vital Signs Temp 99.2 F 12/19/20 04:00 Pulse 93 12/19/20 04:00 Resp 14 12/19/20 04:00 BP 158/95 12/19/20 04:00 Pulse Ox 100 12/19/20 04:00 Intake & Output 12/18/20 12/19/20 12/19/20 18:59 06:59 18:59 Intake Total 340 Balance 340 Weight 52.345 kg 51.7 kg Intake: IV 100 Oral 240 Other: # Voids 0 1 - Labs CBC & Chem 7: 12/19/20 08:05 12/19/20 08:16 Labs: Abnormal Lab Results - Last 24 Hours (Table) 12/18/20 12/18/20 12/18/20 Range/Units 13:21 13:21 14:36 Hgb 16.7 H (11.4-16.0) gm/dL Hct 48.7 H (34.0-46.0) % MCV 105.7 H (80.0-100.0) fL MCH 36.4 H (25.0-35.0) pg APTT 107.5 H* (22.0-30.0) sec Potassium 5.4 H (3.5-5.1) mmol/L Carbon Dioxide 21 L (22-30) mmol/L POC Glucose (mg/dL) (75-99) mg/dL AST 46 H (14-36) U/L Total Protein 8.3 H (6.3-8.2) g/dL Albumin 5.2 H (3.5-5.0) g/dL 06/12/18/20 12/19/20 Range/Units 17:22 20:05 05:53 Hgb (11.4-16.0) gm/dL Hct (34.0-46.0) % MCV (80.0-100.0) fL MCH (25.0-35.0) pg APTT (22.0-30.0) sec Potassium (3.5-5.1) mmol/L Carbon Dioxide (22-30) mmol/L POC Glucose (mg/dL) 73 L 105 H 110 H (75-99) mg/dL AST (14-36) U/L Total Protein (6.3-8.2) g/dL Albumin (3.5-5.0) g/dL
--- NOTE | 2020-12-19 13:56 | ECHOF ---
Referral Reason:LV function MEASUREMENTS -------- HEIGHT: 172.7 cm WEIGHT: 51.3 kg BP: IVSd: 1.1 cm (0.6 - 1.1) LVIDd: 3.1 cm (3.9 - 5.3) LVPWd: 1.2 cm (0.6 - 1.1) IVSs: 1.5 cm LVIDs: 2.4 cm LVPWs: 1.9 cm FINDINGS -------- Sinus rhythm. Limited Study The left ventricular size is normal. There is mild concentric left ventricular hypertrophy. Overa left ventricular systolic function is normal with, an EF between 55 - 60 %. Lumason used There is no pericardial effusion. CONCLUSIONS -------- 1. There is mild concentric left ventricular hypertrophy. 2. Overall left ventricular systolic function is normal with, an EF between 55 - 60 %. 3. There is no pericardial effusion. OBSTETRICIAN AND GYNAECOLOGIST: Carmen Collier RDCS
[2020-12-19 14:27] VITALS: BMI 17.3
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
[2020-12-19 16:54] LABS: Glucose,Whole Blood 136 mg/dL (75-99)
[2020-12-19 18:03] LABS: Chol/HDL Ratio 2.06; LDL Cholesterol,Calculated 97.2 mg/dL (0.0-131.0); VLDL Calculation 11.8 mg/dL (5.00-40.00)
[2020-12-19 19:59] LABS: Glucose,Whole Blood 162 mg/dL (75-99)
[2020-12-19] MEDS: MELATONIN 3 MG TABLET PO SCH (20:11)
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
[2020-12-20 06:13] LABS: Glucose,Whole Blood 87 mg/dL (75-99)
[2020-12-20] MEDS: PANTOPRAZOLE 40 MG TABLET PO SCH ×2 (06:36→17:07)
[2020-12-20] MEDS: METOPROLOL TARTRATE 12.5 MG TAB PO SCH ×2 (08:34→21:23)
[2020-12-20] MEDS: prednisoLONE ACETATE 1% OPHTH DROPS 5 ML BTL RIGHT EYE SCH ×2 (08:35→21:24)
[2020-12-20] MEDS: ATORVASTATIN 20 MG TAB PO SCH (08:35)
[2020-12-20] MEDS: amLODIPine 5 MG TAB PO SCH (08:35)
--- NOTE | 2020-12-20 09:33 | PN ---
PROGRESS NOTE DATE OF SERVICE: 12/20/2020 INTERVAL HISTORY: The patient is a 65-year-old female admitted to the hospital with severe chest pain and underwent cardiac catheterization which was unremarkable. She was seen on consultation yesterday for epigastric discomfort and chest pain. She was started on Protonix 40 mg twice daily for possible GERD causing her symptoms. This morning she is feeling better. She had some epigastric discomfort late last night after she had some bedtime snacking. This morning she is feeling better. No nausea, no vomiting. Chest pain has also resolved. PHYSICAL EXAMINATION: GENERAL: She appears comfortable. No apparent distress. VITAL SIGNS: Stable. Blood pressure 115/76, pulse rate 90, temperature 97.6. HEENT: Examination unremarkable. Conjunctivae are pink. Sclerae anicteric. Oral cavity no lesions. NECK: No JVD or lymph node enlargement. CHEST: Clear to auscultation. HEART: Regular rate and rhythm. ABDOMEN: Soft, it was nontender, nondistended. Bowel sounds are positive. No organomegaly. EXTREMITIES: No pedal edema. NEURO: She is alert and oriented x3. No focal deficits. LABS: No labs available from today. IMPRESSION: 1. Atypical chest pain, probably related to gastroesophageal reflux. She did have cardiac workup, which was all unremarkable. She is status post cardiac catheterization that showed mild coronary artery disease. 2. History of hypertension. 3. History of anxiety and panic disorder. 4. History of diabetes mellitus and hyperlipidemia. RECOMMENDATIONS: 1. Continue with Protonix 40 mg twice daily. 2. I briefly educated about diet modification and anti-reflux measures. 3. She can be discharged home from GI standpoint and follow up in the office in 2 weeks following discharge from the hospital. Thank you for this consultation. MMODL / IJN: [id number] /
[2020-12-20 12:00] LABS: Glucose,Whole Blood 95 mg/dL (75-99)
--- NOTE | 2020-12-20 12:08 | P.PN ---
Subjective Progress Note Date: 12/20/20 This is 65-year-old -[place] female with past medical history significant for hypertension, hyperlipidemia, diabetes, nicotine dependence, EtOH abuse, presented to the hospital with symptoms of chest discomfort. Underwent a cardiac catheterization which revealed mild coronary artery disease with no evidence of any critical lesion. She was seen and examined this morning, states she did not sleep well through the night last night and had a couple episodes of diarrhea stools which has since resolved. Blood pressure 115/70 with a heart rate in the 70s, 100% on room air. No lab data today. Objective - Vital Signs Vital signs: Vital Signs Temp 97.9 F 12/20/20 08:33 Pulse 75 12/20/20 08:33 Resp 16 12/20/20 08:33 BP 115/74 12/20/20 08:33 Pulse Ox 100 12/20/20 08:33 Intake & Output 12/19/20 12/20/20 12/20/20 18:59 06:59 18:59 Intake Total 518 240 Output Total 1 Balance 518 -1 240 Weight 51.7 kg 52.4 kg Intake: Oral 518 240 Output: Stool 1 Other: Voiding Method Toilet # Voids 1 1 - Exam CONSTITUTIONAL: No apparent distress. Frail. HEENT: Head is normocephalic. Pupils are equal, round. Sclerae anicteric. Mucous membranes of the mouth are moist. No JVD. No carotid bruit. CHEST EXAMINATION: Lungs are clear to auscultation. No chest wall tenderness is noted on palpation or with deep breathing. HEART EXAMINATION: Regular rate and rhythm. S1, S2 heard. No murmurs, gallops or rub. ABDOMEN: Soft, nontender. Positive bowel sounds. EXTREMITIES: 2+ peripheral pulses, no lower extremity edema and no calf t enderness. Right groin soft, no evidence of any hematoma. NEUROLOGIC EXAMINATION: Patient is awake, alert and oriented x3. - Labs CBC & Chem 7: 12/19/20 08:05 12/19/20 08:16 Labs: Abnormal Lab Results - Last 24 Hours (Table) 12/19/20 12/19/20 12/19/20 Range/Units 09:55 16:50 19:58 POC Glucose (mg/dL) 136 H 162 H (75-99) mg/dL Cholesterol 212 H (0-200) mg/dL HDL Cholesterol 103.0 H (40.0-60.0) mg/dL Assessment and Plan Plan: Assessment and plan #1 chest pain, status post cardiac catheterization which did not reveal any significantly obstructive coronary artery disease #2 hypertension #3 hyperlipidemia #4 nicotine dependence #5 EtOH abuse Plan From cardiology's perspective, patient may be able to be discharged home once cleared by primary. We will make her a follow-up appointment in the office one week post discharge. DNP note has been reviewed, I agree with a documented findings and plan of care. Patient was seen and examined.
[2020-12-20] MEDS ORDERED: HYDROcodone/APAP 5-325MG 1 EACH TAB PO PRN (14:23)
[2020-12-20] MEDS ORDERED: ALPRAZolam 0.25 MG TAB PO PRN (14:23)
[2020-12-20] MEDS: IOPAMIDOL CONTRAST (ORAL USE) VIAL PO PRN ×2 (15:04→15:36)
--- NOTE | 2020-12-20 15:16 | PN ---
PROGRESS NOTE DATE OF SERVICE: 12/20/2020 This 65-year-old woman admitted with chest pain, had cardiac catheterization which showed minimal coronary artery disease. Medical treatment recommended. Patient also complained of extreme weakness and tiredness and tremulousness. Patient also has history of significant EtOH abuse and multiple hospital admissions also. Apparently patient does not have a place to stay at this time. BMI is 17.6 indicating severe protein calorie malnutrition. PAST MEDICAL HISTORY: Reviewed. REVIEW OF SYSTEMS: CARDIOVASCULAR As mentioned earlier. RESPIRATORY As mentioned earlier. GI As mentioned earlier. No dysuria or hematuria. NERVOUS No numbness or weakness. CURRENT MEDICATIONS: Reviewed include Tylenol, Palms, Xanax, folic acid, multivitamins, Zofran, p.r.n. medications noted. PHYSICAL EXAMINATION: Patient alert and oriented x2. Pulse 75, blood pressure 115/75, respirations 16, temperature 97.9, pulse ox 100% on room air. HEENT: Conjunctivae normal. Oral mucosa moist. NECK: No jugular venous distention. No lymph node enlargement. CARDIOVASCULAR: S1, S2, muffled. No S3, no S4, RESPIRATORY: Diminished breath sounds at the bases. Scattered rhonchi. ABDOMEN: Soft, nontender. No mass palpable. LEGS: No edema, no swelling. NERVOUS SYSTEM: No focal deficits. LABS: WBC 5, hemoglobin 14.6, sodium 135. ASSESSMENT: 1. Chest pain with possible unstable angina, status post cardiac catheterization that shows mild coronary artery disease. 2. Generalized weakness and tiredness. 3. Severe protein calorie malnutrition with body mass index of 17.6. 4. History of ETOH. 5. Increased MCV. 6. Hyponatremia. 7. Hyperlipidemia. 8. History of CHF. 9. History of cerebrovascular accident, transient ischemic attack. 10.Diabetes mellitus type 2. 11.Hypertension. 12.Hyperlipidemia. 13.History of pneumonia. 14.History of gastritis. 15.History of borderline diabetes mellitus. 16.History of facial plastic surgery. 17.History of anxiety, panic disorder. 18.Social issues. 19.History of nicotine dependence, continued ongoing. 20.NO CODE, NO CPR, NO VENT. RECOMMENDATIONS AND DISCUSSION: In this 65-year-old woman who presented with multiple complex medical issues, at this time I recommend to continue the current medications, continue symptomatic treatment. I would also recommend supplement vitamins. Also recommend baseline workup including CT of the brain, chest, abdomen and pelvis to rule out the possibility of malignancy and as well as rule out the possibility of stroke and dementia. Otherwise, PT/OT evaluation, possible ECF rehab. canvas worker to also address the social home situation because the patient apparently has no place to return at this time. Prognosis guarded. We will continue to monitor and continue the rest of medications as per Cardiology. Further recommendations to follow. MMODL / IJN: [id number] /
[2020-12-20 16:45] LABS: Glucose,Whole Blood 86 mg/dL (75-99)
[2020-12-20 16:51] LABS: Appearance,Urine Clear (Clear); Bilirubin,Urine Negative (Negative); Blood,Urine Negative (Negative); Color,Urine Light Yellow; Glucose,Urine (UA) Negative (Negative); Ketones,Urine Negative (Negative); Leukocyte Esterase,Urine Negative (Negative); Nitrite,Urine Negative (Negative); Protein,Urine Negative (Negative); Specific Gravity,Urine 1.002 (1.001-1.035); Urobilinogen,Urine <2.0 mg/dL (<2.0)
[2020-12-20 17:00] LABS: Amphetamine Screen,Urine Not Detected (NotDetected); Cocaine Screen,Urine Not Detected (NotDetected); Phencyclidine Screen,Urine Not Detected (NotDetected); Urn Cannabinoid Scrn Not Detected (NotDetected)
[2020-12-20 17:01] LABS: Barbiturate Screen,Urine Not Detected (NotDetected); Benzodiazepines Screen,Urine Not Detected (NotDetected); Methadone Screen, Urine Not Detected (NotDetected); Opiate Screen,Urine Not Detected (NotDetected); Oxycodone Screen, Urine Not Detected (NotDetected); Tricyclic Antidepressant,Urine Not Detected (NotDetected)
[2020-12-20 17:22] LABS: ALT 10 U/L (4-34); AST 28 U/L (14-36); African American GFR (CKD) >90 (>60 ml/min/1.73 sqM); Albumin 4.9 g/dL (3.5-5.0); Alkaline Phosphatase 83 U/L (38-126); Anion Gap 14 mmol/L; Blood Urea Nitrogen 12 mg/dL (7-17); C Reactive Protein <0.5 mg/dL (<1.0); Calcium 9.7 mg/dL (8.4-10.2); Carbon Dioxide 24 mmol/L (22-30); Chloride 101 mmol/L (98-107); Glucose 73 mg/dL (74-99); Non-African American GFR(CKD) 81 (>60 ml/min/1.73 sqM); Potassium 4.5 mmol/L (3.5-5.1); Sodium 139 mmol/L (137-145); Total Bilirubin 0.4 mg/dL (0.2-1.3); Total Protein 7.5 g/dL (6.3-8.2)
--- NOTE | 2020-12-20 17:28 | CT ---
EXAM: CT brain wo con CLINICAL HISTORY: Altered mental status. COMPARISON: 02/27/2016. TECHNIQUE: Contiguous axial noncontrast images of the brain were obtained. Coronal and sagittal refor mats were generated and reviewed. Automated dose control was used for this exam. FINDINGS: There is no evidence for intracranial hemorrhage, mass effect or midline shift. The white matter is g rossly preserved. Ventricular size and configuration is within normal limits for degree of parenchymal volume. The paranasal sinuses are clear. The mastoid air cells are clear. No evidence for calvarial fracture. IMPRESSION: No acute intracranial abnormality.
[2020-12-20 20:20] LABS: Glucose,Whole Blood 89 mg/dL (75-99)
[2020-12-20] MEDS: HEPARIN SODIUM,PORCINE/PF 5,000 UNIT/0.5 ML SYRINGE SQ SCH (21:23)
[2020-12-20] MEDS: MELATONIN 3 MG TABLET PO SCH (21:23)
--- NOTE | 2020-12-21 00:18 | CT ---
EXAMINATION TYPE: CT ChestAbdPelvis wo con DATE OF EXAM: 12/20/2020 COMPARISON: CT abdomen 01/26/2019 HISTORY: Weight loss, malignancy (?) CT DLP: 514.1 mGycm Automated exposure control for dose reduction was used. Images obtained from the thoracic inlet to the floor the pelvis with no contrast. The lungs are clear of infiltrate. There is no evidence of a pulmonary mass. There is minimal subsegm ental atelectasis at the lung bases. There is no pleural effusion. Heart is enlarged. There is no per icardial effusion. There is no sign of mediastinal adenopathy. There are no hilar masses. Ascending a garrett measures 3.5 cm. The stomach is intact. Liver and spleen appear intact. There is small calcified splenic granuloma. Th ere is no evidence of pancreatic mass. The bile ducts are not dilated. Gallbladder appears normal. There is no adrenal mass. There is 2 cm cortical cyst upper pole left kidney. Kidneys have normal siz e. There is no hydronephrosis. Ureters are not dilated. There is no retroperitoneal adenopathy. There is contrast in the small bowel extending to the terminal ileum. There is no sign of a bowel obstruct ion. There is no sign of mesenteric edema. There is no ascites or free air. Bladder distends smoothly. There is no inguinal hernia. There is no free fluid in the pelvis. There a re multiple sigmoid diverticula. I see no diverticulitis. The lumbar and thoracic vertebra have normal alignment. There is no compression fracture. There is 5% wedging of L2 vertebral body. The sternum is intact. The bony pelvis is intact. The hip joints appea r normal. There is no hip dysplasia. There is no evidence of rib fracture. IMPRESSION: There is mild L2 compression fracture which appears new compared to the old exam. Age of this fractur e is not clear. There is minimal subsegmental atelectasis at the lung bases. Unchanged. Cardiomegaly. No suspicious pulmonary mass. Sigmoid diverticulosis without diverticulitis.
[2020-12-21 06:18] LABS: Glucose,Whole Blood 88 mg/dL (75-99)
[2020-12-21] MEDS: PANTOPRAZOLE 40 MG TABLET PO SCH ×2 (06:42→16:19)
[2020-12-21 08:30] LABS: Basophils % (A) 0 %; Eosinophils # (A) 0.1 k/uL (0-0.7); Eosinophils % (A) 1 %; HCT 43.9 % (34.0-46.0); HGB 14.8 gm/dL (11.4-16.0); Lymphocytes # (A) 1.6 k/uL (1.0-4.8); Lymphocytes % (A) 24 %; MCH 35.9 pg (25.0-35.0); MCHC 33.7 g/dL (31.0-37.0); MCV 106.6 fL (80.0-100.0); Macrocytosis Moderate; Mean Platelet Volume 9.6; Monocytes # (A) 0.4 k/uL (0-1.0); Monocytes % (A) 6 %; Neutrophils # (A) 4.6 k/uL (1.3-7.7); Neutrophils % (A) 69 %; Platelet Count 171 k/uL (150-450); RBC 4.12 m/uL (3.80-5.40); RDW 14.5 % (11.5-15.5); WBC 6.6 k/uL (3.8-10.6)
--- NOTE | 2020-12-21 08:35 | PN ---
PROGRESS NOTE DATE OF SERVICE: 12/21/2020 INTERVAL HISTORY: The patient is a 65-year-old female who was admitted to the hospital with chest pain and epigastric pain, underwent cardiac catheterization that showed minimal coronary artery disease. Subsequently was started on Protonix 40 mg twice daily for possible GERD causing her symptoms. She is doing much better. She states that the abdominal pain and chest pain has completely resolved. On a regular diet, tolerating well. Yesterday, she had a CT of the abdomen and pelvis and chest done that was unremarkable. PHYSICAL EXAMINATION: GENERAL: She appears comfortable. No apparent distress. VITAL SIGNS: Stable. Blood pressure 122/82, pulse 64, temperature 98. HEENT: Examination unremarkable. Conjunctivae are pink. Sclerae anicteric. Oral cavity no lesions. NECK: No JVD or lymph node enlargement. CHEST: Clear to auscultation. HEART: Regular rate and rhythm. ABDOMEN: Soft, bowel sounds are positive, no organomegaly. EXTREMITIES: No pedal edema. NEURO: She is alert and oriented x3. No focal deficits. LABS: Not available today but basic metabolic panel from yesterday is negative. IMPRESSION: 1. Chest pain and epigastric pain, resolved. Possible gastroesophageal reflux disease causing her symptoms. Cardiac workup was negative. She had cardiac catheterization that showed minimal coronary artery disease. 2. History of alcoholism. 3. History of hypertension and hyperlipidemia. RECOMMENDATIONS: 1. Continue with Protonix 40 mg twice daily. 2. Briefly discussed with the patient diet modification and anti-reflux measures. 3. She can be discharged home from GI standpoint. We will follow with you closely. MMODL / IJN: [id number] /
[2020-12-21] MEDS: METOPROLOL TARTRATE 12.5 MG TAB PO SCH ×2 (08:37→21:11)
[2020-12-21] MEDS: ATORVASTATIN 20 MG TAB PO SCH (08:37)
[2020-12-21] MEDS: prednisoLONE ACETATE 1% OPHTH DROPS 5 ML BTL RIGHT EYE SCH ×2 (08:37→21:11)
[2020-12-21] MEDS: amLODIPine 5 MG TAB PO SCH (08:37)
[2020-12-21] MEDS: HEPARIN SODIUM,PORCINE/PF 5,000 UNIT/0.5 ML SYRINGE SQ SCH ×2 (08:37→21:11)
[2020-12-21] MEDS: FOLIC ACID 1 MG TAB PO SCH (11:46)
[2020-12-21] MEDS: MULTIVITAMINS, THERA 1 EACH TAB PO SCH (11:47)
[2020-12-21] MEDS: THIAMINE 100 MG TAB PO SCH (11:47)
[2020-12-21 11:53] LABS: Glucose,Whole Blood 118 mg/dL (75-99)
--- NOTE | 2020-12-21 14:14 | P.PN ---
Subjective Progress Note Date: 12/21/20 HISTORY OF PRESENT ILLNESS: This is a pleasant 65-year-old female past medical history significant for hypertension, dyslipidemia, type 2 diabetes mellitus, chronic nicotine dependence and alcoholism. 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 She presented to the hospital on 12/18 with symptoms of chest discomfort in the midsternal region associated with shortness of breath and palpitations. According to the previous 2 weeks intermittently. They are not exacerbated by exertion or activity. She has not been following with her primary care physician over the previous 6 months due to a disagreement. Therefore she states she has not been taking any of her prescribed medications. EKG on arrival to the emergency department revealed sinus mechanism heart rate of [address] elevation noted in the anterior leads with T-wave inversion in the high lateral leads. Review of old records indicate in July 2014 she underwent cardiac catheterization which revealed a mild noncritical disease in the LAD without significant disease in other vessels. Echocardiogram obtained at that time revealed preserved LV systolic function with ejection fraction 55-60%, mild MR and mild TR noted. Previously she was on lisinopril 10 mg daily. Currently not taking any medications. It was recommended to under cardiac catheterization. 12/18: Cardiac catheterization revealed mild coronary artery disease without any critical lesion. Preserved LV function. Echocardiogram read as EF 40-45%, Basal inferior, inferoseptal LV wall hypokinetic, Mid inferior LV wall hypokinetic, mild mitral regurgitation, mild tricuspid regurgitation 12/19/20: Patient seen and examined at bedside, no acute distress. She denies chest pain and shortness of breath this morning. Blood pressure continues to be elevated. SBP 150-170s. Telemetry reviewed she is in sinus rhythm HR 80-90s. Laboratory data reviewed, WBC 5, hemoglobin 14.3, platelets 167, sodium 135, potassium 3.8, BUN 18, serum creatinine 0.1, troponin negative 2 12/21/2020 Patient examined this morning at the bedside. Patient denies chest pain or pressure. She denies shortness of breath. She reports generalized weakness. PHYSICAL EXAM: VITAL SIGNS: Reviewed. GENERAL: Well-developed in no acute distress. NECK: Supple. No JVD or thyromegaly LUNGS: Respirations even and unlabored. Lungs essentially clear to auscultation bilaterally. HEART: Regular rate and rhythm. S1 and S2 heard. EXTREMITIES: Normal range of motion. No clubbing or cyanosis. Peripheral pulses intact. No lower extremity edema ASSESSMENT: Chest pain, EKG changes concerning for ischemia. Underwent cardiac catheterization with mild coronary artery disease without any critical lesion. T roponin negative x 2. Hypertension Dyslipidemia Alcoholism History of Type 2 Diabetes Chronic nicotine dependence PLAN: Continue current cardiac medications Patient is stable for discharge from a cardiac standpoint We will sign off. Please consult if needed Patient to follow up on an outpatient basis Nurse practitioner note has been reviewed by physician. Signing provider agrees with the documented findings, assessment, and plan of care. Objective - Vital Signs Vital signs: Vital Signs Temp 98.5 F 12/21/20 08:33 Pulse 73 12/21/20 11:47 Resp 16 12/21/20 11:47 BP 135/79 12/21/20 11:47 Pulse Ox 98 12/21/20 11:47 Intake & Output 12/20/20 12/21/20 12/21/20 18:59 06:59 18:59 Intake Total 720 480 Balance 720 480 Weight 52.6 kg Intake: Oral 720 480 Other: Voiding Method Toilet # Voids 1 1 1 - Labs CBC & Chem 7: 12/21/20 07:41 12/20/20 15:14 Labs: Abnormal Lab Results - Last 24 Hours (Table) 12/20/20 12/21/20 12/21/20 Range/Units 15:14 07:41 11:52 MCV 106.6 H (80.0-100.0) fL MCH 35.9 H (25.0-35.0) pg Glucose 73 L (74-99) mg/dL POC Glucose (mg/dL) 118 H (75-99) mg/dL
[2020-12-21 16:50] LABS: Glucose,Whole Blood 97 mg/dL (75-99)
--- NOTE | 2020-12-21 19:56 | PN ---
PROGRESS NOTE DATE OF SERVICE: 12/21/2020 This 65-year-old woman was admitted with chest pain, possible unstable angina. She had cardiac catheterization showed only mild coronary artery disease. The patient had generalized weakness and weight loss. I performed CT of the chest, abdomen and pelvis to exclude any malignancy. CT of the brain was also done which also did not show any acute abnormality. The patient has significant history of EtOH previously. Patient closely monitored. PAST MEDICAL HISTORY: Reviewed. REVIEW OF SYSTEMS: CARDIOVASCULAR SYSTEM: No angina. RESPIRATION as mentioned earlier. GI: As mentioned earlier. : No dysuria., NERVOUS SYSTEM: As mentioned earlier. CURRENT MEDICATIONS: Reviewed and include: Tylenol, [place], Xanax, Norvasc, Lipitor, folic acid, other medications reviewed. PHYSICAL EXAMINATION: Alert and oriented times three. Pulse 65, blood pressure 108/69, respiratory rate 16, temperature 97.8. Pulse ox 100 percent on room air. HEENT: Conjunctivae normal. NECK: No JVD. CARDIOVASCULAR: S1, S2 muffled. RESPIRATION: Breath sounds diminished in the bases. Scattered rhonchi. ABDOMEN: Soft. Nontender. LEGS are no edema. No swelling. NERVOUS SYSTEM: No focal deficits. LABORATORY DATA: CBC within normal limits. Glucose 118. ASSESSMENT: 1. Chest pain with possible unstable angina, status post cardiac catheterization that shows mild coronary artery disease. 2. Generalized weakness and tiredness. 3. No evidence of malignancy in the CT survey. 4. Severe protein calorie malnutrition with body mass index of 17.6. 5. History of ETOH. 6. Increased MCV. 7. Hyponatremia. 8. Hyperlipidemia. 9. History of congestive heart failure. 10.History of cerebrovascular accident, transient ischemic attack. 11.Diabetes mellitus type 2. 12.Hypertension. 13.Hyperlipidemia. 14.History of pneumonia. 15.History of gastritis. 16.History of borderline diabetes type 2. 17.History of facial plastic surgery. 18.Anxiety, panic disorder. 19.Social issues. 20.History of nicotine dependence, continued ongoing. 21.NO CODE, NO CPR, NO VENT. RECOMMENDATIONS AND DISCUSSION: I recommend to continue current medications, management and symptomatic treatment. Otherwise as mentioned earlier CT survey did not show any acute abnormality. PT/OT evaluation. sub assembly team worker is consulted for possible ECF rehab at this time. Otherwise rest of the workup can be done as an outpatient including endoscopies. Recommend to follow up with primary physician closely. Prognosis guarded. Discussed with the patient who understands and agrees. MMODL / IJN: [id number] /
[2020-12-21 20:17] LABS: Glucose,Whole Blood 78 mg/dL (75-99)
[2020-12-21] MEDS: MELATONIN 3 MG TABLET PO SCH (21:11)
[2020-12-22 06:31] LABS: Glucose,Whole Blood 95 mg/dL (75-99)
[2020-12-22] MEDS: PANTOPRAZOLE 40 MG TABLET PO SCH (06:39)
[2020-12-22 10:15] VITALS: RESP 16; TEMP 97.9
[2020-12-22] MEDS: amLODIPine 5 MG TAB PO SCH (10:16)
[2020-12-22] MEDS: MULTIVITAMINS, THERA 1 EACH TAB PO SCH (10:16)
[2020-12-22] MEDS: THIAMINE 100 MG TAB PO SCH (10:16)
[2020-12-22] MEDS: FOLIC ACID 1 MG TAB PO SCH (10:16)
[2020-12-22] MEDS: HEPARIN SODIUM,PORCINE/PF 5,000 UNIT/0.5 ML SYRINGE SQ SCH (10:16)
[2020-12-22] MEDS: METOPROLOL TARTRATE 12.5 MG TAB PO SCH (10:16)
[2020-12-22] MEDS: prednisoLONE ACETATE 1% OPHTH DROPS 5 ML BTL RIGHT EYE SCH (10:17)
[2020-12-22] MEDS: ATORVASTATIN 20 MG TAB PO SCH (10:17)
[2020-12-22 12:07] VITALS: BP 119/75; PULSE 67
--- NOTE | 2020-12-22 13:26 | P.DS ---
Providers Date of admission: 12/18/20 13:52 Expected date of discharge: 12/22/20 Attending physician: Paco Ferris Consults: 12/18/20 13:52 Consult Physician Stat Consulting Provider: Ovi Leos Consult Reason/Comments: stemi Do you want consulting provider notified?: Already Contacted Primary care physician: Stated None Hospital Course: Final diagnosis Chest pain with possible unstable angina, status post cardiac catheterization that shows mild coronary artery disease Generalized weakness and tiredness No evidence of malignancy in the CT survey Severe protein calorie malnutrition with a body mass index of 17.9 History of EtOH increased MCV hyponatremia hyperlipidemia history of congestive heart failure history of CVA, TIA Diabetes mellitus type 2 Hypertension Hyperlipidemia history of pneumonia History of gastritis history of borderline diabetes type 2 History of facial plastic surgery Anxiety, panic disorder social issues history of nicotine dependence, continued and ongoing No code, no CPR, no vent Discharge disposition Patient is being discharged in a stable condition with guarded prognosis to [facility]. Patient will follow-up with Dr. Brand/Flakita in the outpatient setting upon discharge. Patient to follow with her primary care provider Dr. Mari upon [facility]. Patient is to follow-up with cardiology Dr. Leos as scheduled. Total time taken is greater than 35 minutes. Hospital Course This is a 65-year-old female who was recently admitted with chest pain, possible unstable angina and underwent cardiac catheterization showing mild coronary artery disease and will follow-up outpatient with cardiology as discussed. Patient continues to be weak requiring assistance and will be going [facility] for continued PT/OT therapy. During hospitalization patient underwent CT pain, chest abdomen pelvis which was negative for any acute abnormalities. Currently no reports of chest pain, shortness of breath, or palpitations. Patient is afebrile. No reports of nausea or vomiting and patient is tolerating diet. Patient will be going to [facility] today. On exam vital signs are stable. Cardio S1, S2 are muffled. Respiratory system shows diminished breath sounds at the bases with no wheezing or rhonchi noted. Abdomen is soft and nontender. Nervous system shows diffuse weakness. Please refer to medication reconciliation sheet for a list of medications. Patient Condition at Discharge: Stable Plan - Discharge Summary Discharge Rx Participant: Yes New Discharge Prescriptions: New Folic Acid 1 mg PO DAILY@1200 tab Multivitamins, Thera [Multivitamin (formulary)] 1 each PO DAILY@1200 tab Pantoprazole [Protonix] 40 mg PO AC-BID tablet. Thiamine [Vitamin B-1] 100 mg PO DAILY@1200 tab ALPRAZolam [Xanax] 0.25 mg PO BID #6 tab Aspirin EC [Ecotrin Low Dose] 81 mg PO DAILY #30 tablet. Atorvastatin [Lipitor] 20 mg PO DAILY #30 tab Metoprolol Tartrate [Lopressor] 12.5 mg PO BID #60 tab amLODIPine [Norvasc] 5 mg PO DAILY #30 tab Melatonin 3 mg PO HS tablet Acetaminophen Tab [Tylenol] 650 mg PO Q6HR PRN tab PRN Reason: Fever And/ Or Pain Continue Prednisolone Acetate/Pf [Prednisolone Acet 1% Eye Drop] 1 drop RIGHT EYE BID Discharge Medication List Prednisolone Acetate/Pf [Prednisolone Acet 1% Eye Drop] 1 drop RIGHT EYE BID 12/18/20 [History] Aspirin EC [Ecotrin Low Dose] 81 mg PO DAILY #30 tablet. 12/20/20 [Rx] Atorvastatin [Lipitor] 20 mg PO DAILY #30 tab 12/20/20 [Rx] Metoprolol Tartrate [Lopressor] 12.5 mg PO BID #60 tab 12/20/20 [Rx] amLODIPine [Norvasc] 5 mg PO DAILY #30 tab 12/20/20 [Rx] ALPRAZolam [Xanax] 0.25 mg PO BID #6 tab 12/22/20 [Rx] Acetaminophen Tab [Tylenol] 650 mg PO Q6HR PRN tab 12/22/20 [Rx] Folic Acid 1 mg PO DAILY@1200 tab 12/22/20 [Rx] Melatonin 3 mg PO HS tablet 12/22/20 [Rx] Multivitamins, Thera [Multivitamin (formulary)] 1 each PO DAILY@1200 tab 12/22/20 [Rx] Pantoprazole [Protonix] 40 mg PO AC-BID tablet. 12/22/20 [Rx] Thiamine [Vitamin B-1] 100 mg PO DAILY@1200 tab 12/22/20 [Rx] Follow up Appointment(s)/Referral(s): Beverley Mari MD [REFERRING] - 3 Days Ovi Leos MD [STAFF PHYSICIAN] - 1 Week Ambulatory/Diagnostic Orders: Complete Blood Count w/diff [LAB.AMB] Location: None Selected Activity/Diet/Wound Care/Special Instructions: Patient is going to [facility] Activity as tolerated Continue cardiac diet continue Protonix twice daily follow up with cardiology outpatient Follow-up primary care provider upon discharge Discharge Disposition: TRANSFER TO SNF/ECF
== END 2020-12-22 15:47 | disposition home or self-care (01) | DRG 286 ==
LOC: EC 12:53 → 2SICU 13:52 → 3SCARD 14:21
PROVIDERS: ADMIT Internal Medicine; ATTEND Internal Medicine
PROC: B2111ZZ Fluoroscopy of Multiple Coronary Arteries using Low Osmolar Contrast (ICD-10-PCS; 2020-12-18)
PROC: B2151ZZ Fluoroscopy of Left Heart using Low Osmolar Contrast (ICD-10-PCS; 2020-12-18)
PROC: 4A023N7 Measurement of Cardiac Sampling and Pressure, Left Heart, Percutaneous Approach (ICD-10-PCS; principal; 2020-12-18 17:00)
DX: I25.110 Atherosclerotic heart disease of native coronary artery with unstable angina pectoris (principal); E43 Unspecified severe protein-calorie malnutrition; Z68.1 Body mass index [BMI] 19.9 or less, adult; E87.1 Hypo-osmolality and hyponatremia; K21.9 Gastro-esophageal reflux disease without esophagitis; E11.9 Type 2 diabetes mellitus without complications; Z86.73 Personal history of transient ischemic attack (TIA), and cerebral infarction without residual deficits; E78.5 Hyperlipidemia, unspecified; Z87.01 Personal history of pneumonia (recurrent); F17.200 Nicotine dependence, unspecified, uncomplicated; F41.0 Panic disorder [episodic paroxysmal anxiety]; Z82.49 Family history of ischemic heart disease and other diseases of the circulatory system; I50.9 Heart failure, unspecified; F10.20 Alcohol dependence, uncomplicated; I11.0 Hypertensive heart disease with heart failure; K29.70 Gastritis, unspecified, without bleeding; Z66 Do not resuscitate; Z20.822 Contact with and (suspected) exposure to COVID-19; K44.9 Diaphragmatic hernia without obstruction or gangrene; Z90.710 Acquired absence of both cervix and uterus; Z79.899 Other long term (current) drug therapy
CPT/HCPCS: 36415; 70450; 71045; 71250; 74176; 80048; 80053; 80061; 80306; 81003; 82607; 82747; 83735; 83880; 84132; 84484; 85025; 85379; 85610; 85652; 85730; 86140; 87635; 93005; 93306; 93308; 93458; 96374; 99285

== ENCOUNTER 2020-12-23 08:29 | Inpatient (IN) | payer MEDICARE, OTHER ==
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
[2020-12-23 09:11] LABS: Basophils % (A) 0 %; Eosinophils # (A) 0.2 k/uL (0-0.7); Eosinophils % (A) 3 %; HCT 40.1 % (34.0-46.0); HGB 13.8 gm/dL (11.4-16.0); Lymphocytes # (A) 2.3 k/uL (1.0-4.8); Lymphocytes % (A) 38 %; MCH 36.2 pg (25.0-35.0); MCHC 34.3 g/dL (31.0-37.0); MCV 105.5 fL (80.0-100.0); Macrocytosis Moderate; Mean Platelet Volume 8.8; Monocytes # (A) 0.5 k/uL (0-1.0); Monocytes % (A) 8 %; Neutrophils % (A) 49 %; Platelet Count 230 k/uL (150-450); WBC 6.1 k/uL (3.8-10.6)
--- NOTE | 2020-12-23 09:31 | XR ---
EXAMINATION TYPE: XR chest 2V DATE OF EXAM: 12/23/2020 COMPARISON: 12/18/2020 HISTORY: Shortness of breath TECHNIQUE: Frontal and lateral views of the chest are obtained. FINDINGS: Scattered senescent parenchymal changes noted. Hyperinflation compatible with COPD. No evidence for infiltrate. No evidence for atelectasis. Heart size is stable. Mediastinal structures are stable and grossly unremarkable. No evidence for hilar prominence. Degenerative changes dorsal spine. IMPRESSION: 1. No evidence for acute pulmonary disease.
[2020-12-23 09:34] LABS: INR 0.8 (<1.2); Prothrombin Time 9.3 sec (9.0-12.0)
[2020-12-23 09:36] LABS: ALT 8 U/L (4-34); AST 22 U/L (14-36); African American GFR (CKD) >90 (>60 ml/min/1.73 sqM); Albumin 4.3 g/dL (3.5-5.0); Alkaline Phosphatase 65 U/L (38-126); Anion Gap 9 mmol/L; Blood Urea Nitrogen 14 mg/dL (7-17); Calcium 9.7 mg/dL (8.4-10.2); Carbon Dioxide 29 mmol/L (22-30); Chloride 105 mmol/L (98-107); Glucose 90 mg/dL (74-99); Magnesium 1.8 mg/dL (1.6-2.3); Non-African American GFR(CKD) 83 (>60 ml/min/1.73 sqM); Potassium 4.3 mmol/L (3.5-5.1); Sodium 143 mmol/L (137-145); Total Bilirubin 0.2 mg/dL (0.2-1.3); Total Protein 6.8 g/dL (6.3-8.2)
[2020-12-23 09:47] LABS: Partial Thromboplastin Time 21.1 sec (22.0-30.0)
[2020-12-23 10:07] LABS: Creatine Kinase MB 0.4 ng/mL (0.0-2.4); Troponin I <0.012 ng/mL (0.000-0.034)
[2020-12-23] MEDS ORDERED: NALOXONE 0.4 MG/ML 1 ML VIAL IV PRN (10:18)
[2020-12-23] MEDS: SODIUM CHLORIDE 0.9% 1,000 ML IV SCH (10:54)
[2020-12-23] MEDS ORDERED: ACETAMINOPHEN TAB 325 MG TAB PO PRN (17:48)
[2020-12-23] MEDS ORDERED: LORazepam 2 MG/ML INJ IV PRN ×3 (17:49)
[2020-12-23] MEDS ORDERED: THIAMINE 100 MG/ML 2 ML VIAL IM STA (17:49)
[2020-12-23] MEDS ORDERED: Potassium Replacement Protocol 1 EACH MISC MISCELLANE PRN (17:49)
[2020-12-23] MEDS ORDERED: Magnesium Replacement Protocol 1 EACH MISC MISCELLANE PRN (17:49)
[2020-12-23] MEDS: ALPRAZolam 0.25 MG TAB PO SCH (20:04)
[2020-12-23] MEDS: prednisoLONE ACETATE 1% OPHTH DROPS 5 ML BTL RIGHT EYE SCH (20:04)
[2020-12-23] MEDS: METOPROLOL TARTRATE 12.5 MG TAB PO SCH (20:04)
[2020-12-23] MEDS: amLODIPine 5 MG TAB PO SCH (20:04)
[2020-12-23] MEDS: MELATONIN 3 MG TABLET PO SCH (20:04)
[2020-12-23] MEDS ORDERED: TEMAZEPAM 15 MG CAP PO PRN (20:16)
[2020-12-23] MEDS: HEPARIN SODIUM,PORCINE/PF 5,000 UNIT/0.5 ML SYRINGE SQ SCH (20:26)
--- NOTE | 2020-12-23 22:43 | HP ---
HISTORY AND PHYSICAL DATE OF SERVICE: 12/23/2020 CHIEF COMPLAINTS: Chest pain, weakness, alcohol intoxication. HISTORY OF PRESENT ILLNESS: This 65-year-old woman with a past history of chest pain, CHF, CVA, TIA, diabetes type 2, hypertension, hyperlipidemia, pneumonia, was recently admitted to [facility] with chest pain. The patient had cardiac catheterization showing mild coronary artery disease. The patient on multiple other medical issues including significantly emaciation and weakness. The possibility of ECF rehab is being considered and investigated at length and apparently she does not qualify for rehab, so it was decided to send the patient home with a friend and the patient went home and apparently [place] and they had a couple of drinks and subsequently patient was taken to [facility] and was admitted for evaluation and treatment for alcoholic intoxication. As mentioned earlier, the patient had a recent cardiac catheterization. The patient was supposed to follow with Dr. Mari as the primary physician. After admission the alcohol was found to be 325. There is no history of fever, rigors. No headache, loss of consciousness or seizures. PAST MEDICAL HISTORY: History of chest pain, CHF, CVA, TIA, diabetes type 2, hypertension, hyperlipidemia. MEDICATIONS: Home medications Norvasc, vitamin B1, prednisone, Protonix, multivitamins, Lopressor, melatonin, folic acid, Lipitor, Ecotrin, Tylenol, Xanax. ALLERGIES: None. FAMILY HISTORY: History of hypertension in the family. SOCIAL HISTORY: History of smoking, occasional alcohol intake. REVIEW OF SYSTEMS: ENT No history of diminished hearing or vision. CARDIOVASCULAR As mentioned earlier. RESPIRATORY As mentioned earlier. GI No nausea, vomiting, or diarrhea. No dysuria or hematuria. NERVOUS No numbness or weakness. ALLERGY/IMMUNOLOGY No asthma or hayfever. MUSCULOSKELETAL As mentioned earlier. HEMATOLOGY/ONCOLOGY Negative. ENDOCRINE No history of diabetes or hypothyroidism. CONSTITUTIONAL As mentioned earlier. DERMATOLOGY Negative. RHEUMATOLOGY Negative, PSYCHIATRY As mentioned earlier. PHYSICAL EXAMINATION: Alert and oriented x3. Pulse 80, blood pressure 120/72, respiration 20, temperature 98.1, pulse ox 100% on room air. HEENT: Conjunctivae normal. Oral mucosa moist. NECK: No jugular venous distention. No lymph node enlargement. CARDIOVASCULAR: S1, S2, muffled. No S3, no S4, RESPIRATORY: Diminished breath sounds at the bases. A few scattered rhonchi and crackles. ABDOMEN: Soft, nontender. LEGS: No edema, no swelling. NERVOUS SYSTEM: Higher functions mentioned earlier. Moves all four limbs. Mild diffuse weakness. LYMPHATICS: No lymph node in neck or axilla. SKIN: No rash. JOINTS: No active deforming arthropathy. LABS: At this time shows MCV 105, CBC within normal limits. Serum alcohol 325. ASSESSMENT: 1. Acute alcohol intoxication. 2. Change in mental status, acute metabolic encephalopathy secondary to alcohol. 3. Severe protein calorie malnutrition with malnutrition with body mass index of 17.5. 4. History of recent cardiac catheterization showing mild obstructive coronary artery disease. 5. History of CHF. 6. History of CVA/TIA. 7. Diabetes mellitus type 2. 8. Hypertension. 9. Hyperlipidemia. 10.History of pneumonia. 11.Severe protein calorie malnutrition. 12.History of facial plastic surgery. 13.History of anxiety, panic disorder. 14.History of nicotine dependence. 15.FULL CODE. RECOMMENDATIONS AND DISCUSSION: In this 65-year-old woman who presented with multiple complex issues, monitor the patient closely, continue the current management and symptomatic treatment, CIWA protocol. Resume the home medications. PT OT evaluation, possible ECF rehab. Social Work and Case Management to address the home situation. Guarded prognosis. Further recommendations to follow. MMODL / IJN: [id number] /
[2020-12-24] MEDS: ALPRAZolam 0.25 MG TAB PO SCH ×2 (08:40→20:39)
[2020-12-24] MEDS: PANTOPRAZOLE 40 MG TABLET PO SCH ×2 (08:40→16:58)
[2020-12-24] MEDS: ATORVASTATIN 20 MG TAB PO SCH (08:40)
[2020-12-24] MEDS: ASPIRIN 81 MG PO SCH (08:40)
[2020-12-24] MEDS: HEPARIN SODIUM,PORCINE/PF 5,000 UNIT/0.5 ML SYRINGE SQ SCH ×2 (08:40→20:39)
[2020-12-24] MEDS: amLODIPine 5 MG TAB PO SCH (08:41)
[2020-12-24] MEDS: SODIUM CHLORIDE 0.9% 1,000 ML IV SCH (08:41)
[2020-12-24] MEDS: METOPROLOL TARTRATE 12.5 MG TAB PO SCH ×2 (08:41→20:39)
[2020-12-24] MEDS: prednisoLONE ACETATE 1% OPHTH DROPS 5 ML BTL RIGHT EYE SCH ×2 (08:41→20:39)
[2020-12-24 09:16] LABS: HCT 37.9 % (37.2-46.3); HGB 12.2 g/dL (12.0-15.0); MCH 35.6 pg (27.0-32.0); MCHC 32.2 g/dL (32.0-37.0); MCV 110.5 fL (80.0-97.0); Mean Platelet Volume 11.6 fL (9.5-12.2); Platelet Count 245 X 10*3/uL (140-440); RBC 3.43 X 10*6/uL (4.10-5.20); RDW 15.6 % (11.5-14.5); WBC 6.15 X 10*3/uL (4.50-10.00)
[2020-12-24 11:03] LABS: Acanthocytes 2+; Basophils # (A) 0.02 X 10*3/uL (0.00-0.10); Basophils % (A) 0.3 %; Eosinophils # (A) 0.04 X 10*3/uL (0.04-0.35); Eosinophils % (A) 0.7 %; Lymphocytes # (A) 1.52 X 10*3/uL (0.90-5.00); Lymphocytes % (A) 24.7 %; Macrocytosis (M) 2+; Monocytes # (A) 0.97 X 10*3/uL (0.20-1.00); Monocytes % (A) 15.8 %; Neutrophils # (A) 3.58 X 10*3/uL (1.80-7.70); Neutrophils % (A) 58.2 %
[2020-12-24] MEDS: FOLIC ACID 1 MG TAB PO SCH (11:18)
[2020-12-24] MEDS: THIAMINE 100 MG TAB PO SCH (11:18)
[2020-12-24] MEDS: MULTIVITAMINS, THERA 1 EACH TAB PO SCH (11:18)
[2020-12-24 12:06] VITALS: BMI 17.4
[2020-12-24] MEDS: NICOTINE 7MG/24HR PATCH TRANSDERM SCH (15:11)
[2020-12-24 17:31] LABS: Appearance,Urine Cloudy (Clear); Bacteria,Urine Moderate /hpf; Bilirubin,Urine Negative (Negative); Blood,Urine Negative (Negative); Color,Urine Yellow; Glucose,Urine (UA) Negative (Negative); Ketones,Urine Negative (Negative); Leukocyte Esterase,Urine Moderate (Negative); Mucus,Urine Rare /hpf; Nitrite,Urine Positive (Negative); Protein,Urine Trace (Negative); RBC,Urine 1 /hpf (0-5); Specific Gravity,Urine 1.024 (1.001-1.035); Squamous Epithelial Cell,Urine 1 /hpf (0-4); Urobilinogen,Urine <2.0 mg/dL (<2.0); WBC,Urine 8 /hpf (0-5)
[2020-12-24 18:06] LABS: African American GFR (CKD) 77.8 (60.0-200.0); Anion Gap 12.5 mmol/L (4.00-12.00); BUN/Creat Ratio 21.11 Ratio (12.00-20.00); Calcium 9.3 mg/dL (8.7-10.3); Carbon Dioxide 23.5 mmol/L (21.6-31.8); Magnesium 1.6 mg/dL (1.5-2.4); Non-African American GFR(CKD) 67.1 (60.0-200.0); Potassium 4.6 mmol/L (3.5-5.5)
[2020-12-24] MEDS: MELATONIN 3 MG TABLET PO SCH (20:39)
[2020-12-25 02:30] LABS: Appearance,Urine Clear (Clear); Bacteria,Urine Rare /hpf; Bilirubin,Urine Negative (Negative); Blood,Urine Negative (Negative); Color,Urine Light Yellow; Glucose,Urine (UA) Negative (Negative); Ketones,Urine Negative (Negative); Leukocyte Esterase,Urine Small (Negative); Nitrite,Urine Positive (Negative); PH, Urine 7.5 (5.0-8.0); Protein,Urine Negative (Negative); RBC,Urine <1 /hpf (0-5); Specific Gravity,Urine 1.008 (1.001-1.035); Squamous Epithelial Cell,Urine <1 /hpf (0-4); Urobilinogen,Urine <2.0 mg/dL (<2.0); WBC,Urine 8 /hpf (0-5)
--- NOTE | 2020-12-25 08:48 | US ---
EXAMINATION TYPE: US liver DATE OF EXAM: 12/25/2020 COMPARISON: NONE CLINICAL HISTORY: RUQ pain and tenderness. Pain EXAM MEASUREMENTS: Liver Length: 15.3 cm Gallbladder Wall: .2 cm CBD: .4 cm Right Kidney: 10.2 x 3.6 x 4.5 cm Pancreas: Obscured by bowel gas Liver: wnl Gallbladder: No stones seen. Under distention limits evaluation. Evidence for sonographic Garcia's sign: No CBD: wnl Right Kidney: wnl IMPRESSION: No definite sonographic abnormality is seen. The gallbladder is underdistended which limits its evalu ation.
--- NOTE | 2020-12-25 08:53 | US ---
EXAMINATION TYPE: US venous doppler duplex LE DATE OF EXAM: 12/25/2020 7:53 AM COMPARISON: NONE CLINICAL HISTORY: Rule out DVT.pain SIDE PERFORMED: Bilateral TECHNIQUE: The lower extremity deep venous system is examined utilizing real time linear array sonog michael with graded compression, doppler sonography and color-flow sonography. VESSELS IMAGED: Common Femoral Vein Deep Femoral Vein Greater Saphenous Vein * Femoral Vein Popliteal Vein Small Saphenous Vein * Proximal Calf Veins (* superficial vessels) There is normal flow, compressibility, vascular waveforms. Right Leg: Negative for DVT Left Leg: Negative for DVT IMPRESSION: No evident deep venous thrombosis at the level of the knees or central to the knees withi n the lower extremities
[2020-12-25] MEDS: amLODIPine 5 MG TAB PO SCH (09:06)
[2020-12-25] MEDS: ALPRAZolam 0.25 MG TAB PO SCH ×2 (09:06→20:30)
[2020-12-25] MEDS: PANTOPRAZOLE 40 MG TABLET PO SCH ×2 (09:06→20:30)
[2020-12-25] MEDS: ASPIRIN 81 MG PO SCH (09:06)
[2020-12-25] MEDS: ATORVASTATIN 20 MG TAB PO SCH (09:06)
[2020-12-25] MEDS: HEPARIN SODIUM,PORCINE/PF 5,000 UNIT/0.5 ML SYRINGE SQ SCH ×2 (09:07→20:30)
[2020-12-25] MEDS: METOPROLOL TARTRATE 12.5 MG TAB PO SCH ×2 (09:07→21:57)
[2020-12-25] MEDS: NICOTINE 7MG/24HR PATCH TRANSDERM SCH (09:07)
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
[2020-12-25] MEDS: prednisoLONE ACETATE 1% OPHTH DROPS 5 ML BTL RIGHT EYE SCH ×2 (10:19→20:30)
[2020-12-25] MEDS: FOLIC ACID 1 MG TAB PO SCH (11:45)
[2020-12-25] MEDS: MULTIVITAMINS, THERA 1 EACH TAB PO SCH (11:45)
[2020-12-25] MEDS: THIAMINE 100 MG TAB PO SCH (11:45)
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
[2020-12-25] MEDS: SODIUM CHLORIDE 0.9% 1,000 ML IV SCH (17:31)
[2020-12-25] MEDS: MELATONIN 3 MG TABLET PO SCH (20:30)
[2020-12-26] MEDS: ASPIRIN 81 MG PO SCH (08:04)
[2020-12-26] MEDS: HEPARIN SODIUM,PORCINE/PF 5,000 UNIT/0.5 ML SYRINGE SQ SCH ×2 (08:04→20:40)
[2020-12-26] MEDS: amLODIPine 5 MG TAB PO SCH (08:04)
[2020-12-26] MEDS: MULTIVITAMINS, THERA 1 EACH TAB PO SCH (08:04)
[2020-12-26] MEDS: ATORVASTATIN 20 MG TAB PO SCH (08:04)
[2020-12-26] MEDS: THIAMINE 100 MG TAB PO SCH (08:04)
[2020-12-26] MEDS: PANTOPRAZOLE 40 MG TABLET PO SCH ×2 (08:04→17:35)
[2020-12-26] MEDS: FOLIC ACID 1 MG TAB PO SCH (08:04)
[2020-12-26] MEDS: ALPRAZolam 0.25 MG TAB PO SCH ×2 (08:04→20:39)
[2020-12-26] MEDS: METOPROLOL TARTRATE 12.5 MG TAB PO SCH ×2 (08:05→21:58)
[2020-12-26] MEDS: prednisoLONE ACETATE 1% OPHTH DROPS 5 ML BTL RIGHT EYE SCH ×2 (08:05→20:39)
[2020-12-26] MEDS: NICOTINE 7MG/24HR PATCH TRANSDERM SCH (08:05)
[2020-12-26 12:53] LABS: Appearance,Urine Clear (Clear); Bilirubin,Urine Negative (Negative); Blood,Urine Negative (Negative); Color,Urine Light Yellow; Glucose,Urine (UA) Negative (Negative); Ketones,Urine Negative (Negative); Leukocyte Esterase,Urine Negative (Negative); Nitrite,Urine Negative (Negative); PH, Urine 7.5 (5.0-8.0); Protein,Urine Negative (Negative); Specific Gravity,Urine 1.003 (1.001-1.035); Urobilinogen,Urine <2.0 mg/dL (<2.0)
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
[2020-12-26] MEDS: SODIUM CHLORIDE 0.9% 1,000 ML IV SCH (13:18)
[2020-12-26] MEDS: MELATONIN 3 MG TABLET PO SCH (20:39)
[2020-12-27 07:51] VITALS: RESP 18
[2020-12-27] MEDS: ASPIRIN 81 MG PO SCH (08:19)
[2020-12-27] MEDS: FOLIC ACID 1 MG TAB PO SCH (08:19)
[2020-12-27] MEDS: MULTIVITAMINS, THERA 1 EACH TAB PO SCH (08:19)
[2020-12-27] MEDS: amLODIPine 5 MG TAB PO SCH (08:19)
[2020-12-27] MEDS: ATORVASTATIN 20 MG TAB PO SCH (08:19)
[2020-12-27] MEDS: PANTOPRAZOLE 40 MG TABLET PO SCH ×2 (08:19→16:14)
[2020-12-27] MEDS: THIAMINE 100 MG TAB PO SCH (08:19)
[2020-12-27] MEDS: HEPARIN SODIUM,PORCINE/PF 5,000 UNIT/0.5 ML SYRINGE SQ SCH ×2 (08:20→19:32)
[2020-12-27] MEDS: prednisoLONE ACETATE 1% OPHTH DROPS 5 ML BTL RIGHT EYE SCH ×2 (08:21→19:33)
[2020-12-27] MEDS: ALPRAZolam 0.25 MG TAB PO SCH ×2 (08:23→19:32)
[2020-12-27] MEDS: METOPROLOL TARTRATE 12.5 MG TAB PO SCH ×2 (08:24→19:32)
[2020-12-27] MEDS: NICOTINE 7MG/24HR PATCH TRANSDERM SCH (08:24)
[2020-12-27] MEDS: SODIUM CHLORIDE 0.9% 1,000 ML IV SCH (08:24)
[2020-12-27] MEDS: MELATONIN 3 MG TABLET PO SCH (19:32)
--- NOTE | 2020-12-27 20:24 | US ---
EXAMINATION TYPE: US renals and bladder DATE OF EXAM: 12/27/2020 COMPARISON: CT, US CLINICAL HISTORY: uti , increased frequency of urination . EXAM MEASUREMENTS: Right Kidney: 10.4 x 5.1 x 4.1 cm Left Kidney: 9.5 x 3.9 x 4.7 cm Post Void Residual Volume: not assessed on inpatient Right Kidney: No hydronephrosis seen; hyperechoic parallel lines seen on image #25 suggests vascular wall calcifications. Left Kidney: upper pole cortical cyst noted = 1.6 x 1.5 x 1.3cm. Bladder: bladder wall is mildly thickened = 3.3mm. Bilateral Jets seen: yes IMPRESSION: No evidence of renal mass or obstruction. There are bilateral ureteral jets. Possible mild bladder wa ll thickening. No bladder mass seen.
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
[2020-12-28 03:00] VITALS: TEMP 97.7
[2020-12-28 07:36] VITALS: BP 134/81; PULSE 57
[2020-12-28] MEDS: PANTOPRAZOLE 40 MG TABLET PO SCH (07:56)
[2020-12-28] MEDS: NICOTINE 7MG/24HR PATCH TRANSDERM SCH (07:57)
[2020-12-28] MEDS: ATORVASTATIN 20 MG TAB PO SCH (07:57)
[2020-12-28] MEDS: FOLIC ACID 1 MG TAB PO SCH (07:57)
[2020-12-28] MEDS: amLODIPine 5 MG TAB PO SCH (07:57)
[2020-12-28] MEDS: METOPROLOL TARTRATE 12.5 MG TAB PO SCH (07:57)
[2020-12-28] MEDS: THIAMINE 100 MG TAB PO SCH (07:57)
[2020-12-28] MEDS: MULTIVITAMINS, THERA 1 EACH TAB PO SCH (07:57)
[2020-12-28] MEDS: ALPRAZolam 0.25 MG TAB PO SCH (07:57)
[2020-12-28] MEDS: ASPIRIN 81 MG PO SCH (07:57)
[2020-12-28] MEDS: HEPARIN SODIUM,PORCINE/PF 5,000 UNIT/0.5 ML SYRINGE SQ SCH (07:57)
[2020-12-28] MEDS: prednisoLONE ACETATE 1% OPHTH DROPS 5 ML BTL RIGHT EYE SCH (07:58)
[2020-12-28] MEDS: SODIUM CHLORIDE 0.9% 1,000 ML IV SCH (08:02)
--- NOTE | 2020-12-28 11:05 | CONS ---
CONSULTATION DATE OF SERVICE: 12/27/2020 REASON FOR CONSULTATION: Urinary tract infection. HISTORY OF PRESENT ILLNESS: The patient is a 65-year-old female who presented to the hospital on 12/23/2020, about four days ago, for evaluation of chest pain and nausea. The patient said it has been going on for 4 or 5 days before presentation to the hospital. The patient denies having any cough or any sputum production. Has been complaining of nausea but did not have any vomiting. No abdominal pain. Urinary frequency but no significant burning. ( ) or flank pain. The patient on presentation to the hospital was afebrile and no fever has been recorded. Subsequently, the patient did have a normal white count. She did have a positive UA with the urine culture showing an E coli x2, resistant to the quinolones. The patient has been treated with Rocephin. The patient did have another UA obtained today which came back negative. Infectious Disease was consulted for further management of antibiotic therapy. Patient's chest pain is currently improved. Denies having any shortness of breath. No abdominal pain and no diarrhea. REVIEW OF SYSTEMS: Positive points have been mentioned in HPI. Rest of systems are negative. PAST MEDICAL HISTORY: Angina, heart failure, CVA, TIA, diabetes mellitus, hypertension, hyperlipidemia, pneumonia and UTI. PAST SURGICAL HISTORY: Heart catheterization, hysterectomy. SOCIAL HISTORY: Current everyday smoker. Occasionally drinks. No drug use. FAMILY HISTORY: ( ). ALLERGIES: No known drug allergies. MEDICATIONS: The patient is currently on Tylenol, Xanax, Norvasc, aspirin, Lipitor, Rocephin 1 g daily, folic acid, heparin, ( ), Ativan, ( ), Lopressor, Theragran, Narcan, nicotine patch, Protonix. PHYSICAL EXAMINATION: Blood pressure is 122/72 with a pulse of 74, temperature 98, she is 100% on room air. General description is an elderly female up in the bed in no distress. HEENT: Examination shows no pallor or scleral icterus. Oral mucous membrane is dry. NECK: Trachea is central. No thyromegaly. LUNGS: Unlabored breathing, clear to auscultation anteriorly. No wheeze or crackle. HEART: S1, S2. Regular rate and rhythm. ABDOMEN: Soft. There is no tenderness. No guarding, no rigidity. EXTREMITIES: No edema of the feet. SKIN: No rash or mass palpable. NEUROLOGIC: The patient is awake, alert, oriented. Mood and affect normal. LABS: Hemoglobin is 12.2, white count 6.15, BUN of 19, creatinine 0.9. Urine was positive on 12/24, however, urine obtained yesterday is negative. Ultrasound of the kidney did not show any structural abnormality. DIAGNOSTIC IMPRESSION AND PLAN: Patient admitted to the hospital with chest pain and also had nausea and some urine symptoms, possible cystitis. Clinically not behaving as a deep infection such as pyelonephritis and E coli was sensitive to pathogen with repeat urine negative likely representing adequate treatment of underlying UTI. PLAN: The patient's Rocephin can be safely discontinued. There is no need for antibiotic on discharge. Patient did have multiple questions and those were answered. Thank you for this consultation. MMODL / IJN: [id number] /
--- NOTE | 2020-12-28 18:45 | PN ---
PROGRESS NOTE DATE OF SERVICE: 12/28/2020 REASON FOR FOLLOWUP: E coli urinary tract infection. INTERVAL HISTORY: The patient was seen on rounds this afternoon. The patient has been afebrile. The patient has been feeling better, breathing comfortably. Denies having any chest pain, shortness of breath or cough. No abdominal pain. No diarrhea. No urinary symptoms. PHYSICAL EXAMINATION: Blood pressure 134/81 with a pulse of 57, temperature 97.7. She is 100% on room air. GENERAL description: The patient is an elderly female up in the room in no distress. RESPIRATORY SYSTEM: Unlabored breathing. Clear to auscultation anteriorly. HEART: S1, S2. Regular rate and rhythm. ABDOMEN: Soft, no tenderness. LABS: Hemoglobin is 12.1, white count 6.15, BUN of 19, creatinine 0.9. Repeat urine is negative. DIAGNOSTIC IMPRESSION AND PLAN: Patient with E coli urinary tract infection that has been adequately treated. The patient currently no symptoms. Recommend no antibiotic on discharge. MMODL / IJN: [id number] /
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
== END 2020-12-28 16:03 | disposition home or self-care (01) | DRG 689 ==
LOC: EC 08:29 → 6NMEDSUR 10:18 → OBSVTOIN 12-26 08:03
PROVIDERS: ADMIT Hospitalist; ATTEND Hospitalist
DX: N39.0 Urinary tract infection, site not specified (principal); E43 Unspecified severe protein-calorie malnutrition; G93.41 Metabolic encephalopathy; Z68.1 Body mass index [BMI] 19.9 or less, adult; R64 Cachexia; F10.129 Alcohol abuse with intoxication, unspecified; E11.9 Type 2 diabetes mellitus without complications; E78.5 Hyperlipidemia, unspecified; F17.200 Nicotine dependence, unspecified, uncomplicated; F32.9 Major depressive disorder, single episode, unspecified; F41.0 Panic disorder [episodic paroxysmal anxiety]; G31.2 Degeneration of nervous system due to alcohol; Z20.822 Contact with and (suspected) exposure to COVID-19; Z90.710 Acquired absence of both cervix and uterus; Z86.73 Personal history of transient ischemic attack (TIA), and cerebral infarction without residual deficits; Z82.49 Family history of ischemic heart disease and other diseases of the circulatory system; Z79.82 Long term (current) use of aspirin; Y90.8 Blood alcohol level of 240 mg/100 ml or more; I50.9 Heart failure, unspecified; I25.10 Atherosclerotic heart disease of native coronary artery without angina pectoris; I11.0 Hypertensive heart disease with heart failure; B96.20 Unspecified Escherichia coli [E. coli] as the cause of diseases classified elsewhere; Z79.899 Other long term (current) drug therapy
CPT/HCPCS: 36415; 71046; 76705; 76770; 80048; 80053; 80320; 81001; 81003; 82553; 83735; 84484; 85025; 85610; 85730; 87077; 87086; 87186; 87635; 93005; 93970; 94760; 99285

== ENCOUNTER 2021-01-04 | Observation (INO) | payer OTHER | END 2021-01-05 14:14 | disposition home or self-care (01) | PROVIDERS: ADMIT Hospitalist | CPT/HCPCS: 96361; 96375; 93005 ×2; 96374; 99285; 36415; 80053; 82150; 83690; 83735; 84484; 85025; 85610; 85730; 71046; G0378 ×2; G0480; J2060; J2405; 80320 ==

== ENCOUNTER 2021-02-24 18:40 | Observation (INO) | payer OTHER ==
[2021-02-24] MEDS ORDERED: SODIUM CHLORIDE 0.9% 1,000 ML IV STA (19:23)
[2021-02-24] MEDS ORDERED: SODIUM CHLORIDE 0.9% 500 ML 500 ML IV STA (19:24)
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
[2021-02-24 19:52] LABS: Basophils % (A) 1 %; Eosinophils # (A) 0.1 k/uL (0-0.7); Eosinophils % (A) 2 %; HCT 43.8 % (34.0-46.0); HGB 14.7 gm/dL (11.4-16.0); Lymphocytes # (A) 2.1 k/uL (1.0-4.8); Lymphocytes % (A) 32 %; MCHC 33.6 g/dL (31.0-37.0); MCV 107.3 fL (80.0-100.0); Macrocytosis Moderate; Mean Platelet Volume 8.9; Monocytes # (A) 0.3 k/uL (0-1.0); Monocytes % (A) 4 %; Neutrophils # (A) 3.8 k/uL (1.3-7.7); Neutrophils % (A) 58 %; Platelet Count 218 k/uL (150-450); RBC 4.09 m/uL (3.80-5.40); RDW 14.2 % (11.5-15.5); WBC 6.6 k/uL (3.8-10.6)
[2021-02-24 20:02] LABS: Albumin 5.1 g/dL (3.5-5.0); Calcium 9.5 mg/dL (8.4-10.2); Magnesium 1.9 mg/dL (1.6-2.3); Potassium 3.8 mmol/L (3.5-5.1); Total Bilirubin 0.3 mg/dL (0.2-1.3)
[2021-02-24 20:07] LABS: INR 0.9 (<1.2); Prothrombin Time 9.7 sec (9.0-12.0)
[2021-02-24 20:09] LABS: Partial Thromboplastin Time 21.2 sec (22.0-30.0)
--- NOTE | 2021-02-24 20:34 | CT ---
EXAMINATION TYPE: CT brain moose diaz con DATE OF EXAM: 02/24/2021 COMPARISON: 12/20/2020 CT brain HISTORY: fall CT DLP: 1241.7 mGycm Automated exposure control for dose reduction was used. TECHNIQUE: CT scan of the head and cervical spine are performed without contrast. FINDINGS: There is no acute intracranial hemorrhage, mass effect, or midline shift identified. The ventricles and sulci are within normal limits in size. Generalized volume loss. Patchy white matter hypodensities likely sequela of chronic microvascular ischemic change. No depressed calvarial fractu re. Mastoid air cells are clear. There is mucosal thickening of the bilateral maxillary sinuses. Cervical spine is visualized in its entirety from C1 through upper thoracic levels and. There is norm al alignment. There is grade 1 retrolisthesis of C5 on C6. No acute fracture or subluxation. Prevert ebral soft tissue appears within normal limits. IMPRESSION: 1. There is no acute fracture or dislocation evident in the cervical spine. 2. No acute intracranial hemorrhage, mass effect, or midline shift is seen.
--- NOTE | 2021-02-24 21:13 | XR ---
EXAMINATION TYPE: XR chest 2V DATE OF EXAM: 02/24/2021 CLINICAL HISTORY: Weakness. TECHNIQUE: Frontal and lateral view of the chest. COMPARISON: 01/04/2021 FINDINGS: The cardiomediastinal silhouette is within normal limits for size. Pulmonary vasculature i s normal. There is no focal air space opacity. No pleural effusion. No pneumothorax seen. Old right rib fracture deformities. IMPRESSION: No acute cardiopulmonary process.
[2021-02-24] MEDS ORDERED: NALOXONE 0.4 MG/ML 1 ML VIAL IV PRN (22:15)
[2021-02-24] MEDS ORDERED: ACETAMINOPHEN TAB 325 MG TAB PO PRN (22:16)
[2021-02-24] MEDS ORDERED: THIAMINE 100 MG/ML 2 ML VIAL IM STA (22:16)
[2021-02-24] MEDS ORDERED: LORazepam 2 MG/ML INJ IV PRN ×3 (22:16)
[2021-02-24] MEDS: SODIUM CHLORIDE 0.9% 1,000 ML IV SCH (23:15)
[2021-02-24] MEDS: THIAMINE 100 MG TAB PO SCH (23:24)
[2021-02-25 03:30] LABS: Appearance,Urine Clear (Clear); Bilirubin,Urine Negative (Negative); Blood,Urine Negative (Negative); Color,Urine Yellow; Glucose,Urine (UA) Negative (Negative); Hyaline Casts,Urine 12 /lpf (0-2); Ketones,Urine 1+ (Negative); Leukocyte Esterase,Urine Small (Negative); Mucus,Urine Rare /hpf; Nitrite,Urine Negative (Negative); Protein,Urine Trace (Negative); Specific Gravity,Urine 1.013 (1.001-1.035); Squamous Epithelial Cell,Urine 2 /hpf (0-4); WBC,Urine 3 /hpf (0-5)
[2021-02-25] MEDS ORDERED: ALPRAZolam 0.25 MG TAB PO PRN (03:50)
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
[2021-02-25 05:21] LABS: Basophils % (A) 1 %; Eosinophils # (A) 0.1 k/uL (0-0.7); Eosinophils % (A) 2 %; HGB 12.6 gm/dL (11.4-16.0); Lymphocytes # (A) 1.3 k/uL (1.0-4.8); Lymphocytes % (A) 23 %; MCH 36.2 pg (25.0-35.0); Macrocytosis Marked; Mean Platelet Volume 8.7; Monocytes # (A) 0.4 k/uL (0-1.0); Monocytes % (A) 6 %; Neutrophils # (A) 3.6 k/uL (1.3-7.7); Neutrophils % (A) 66 %; Platelet Count 196 k/uL (150-450); RBC 3.47 m/uL (3.80-5.40); RDW 15.3 % (11.5-15.5); WBC 5.5 k/uL (3.8-10.6)
[2021-02-25 05:41] LABS: MCV 109.6 fL (80.0-100.0)
[2021-02-25 05:53] LABS: Albumin 4.2 g/dL (3.5-5.0); Calcium 9.4 mg/dL (8.4-10.2); Potassium 3.1 mmol/L (3.5-5.1); Total Bilirubin 0.2 mg/dL (0.2-1.3); Total Protein 6.6 g/dL (6.3-8.2)
[2021-02-25] MEDS: THIAMINE 100 MG TAB PO SCH ×2 (07:04→12:42)
[2021-02-25] MEDS: PANTOPRAZOLE 40 MG TABLET PO SCH (07:04)
[2021-02-25] MEDS: ASPIRIN 81 MG PO SCH (08:41)
[2021-02-25] MEDS: METOPROLOL TARTRATE 12.5 MG TAB PO SCH ×2 (08:41→21:37)
[2021-02-25] MEDS: amLODIPine 5 MG TAB PO SCH (08:41)
[2021-02-25] MEDS: ATORVASTATIN 20 MG TAB PO SCH (08:42)
[2021-02-25] MEDS: prednisoLONE ACETATE 1% OPHTH DROPS 5 ML BTL RIGHT EYE SCH ×2 (10:32→23:38)
[2021-02-25] MEDS ORDERED: THIAMINE 100 MG TAB PO SCH (12:00)
[2021-02-25] MEDS: MULTIVITAMINS, THERA 1 EACH TAB PO SCH (12:42)
[2021-02-25] MEDS: FOLIC ACID 1 MG TAB PO SCH (12:44)
[2021-02-25 17:14] LABS: Hemoglobin A1C 5.3 % (4.0-6.0)
[2021-02-25] MEDS ORDERED: MELATONIN 3 MG TABLET PO SCH (21:00)
[2021-02-25] MEDS: SODIUM CHLORIDE 0.9% 1,000 ML IV SCH (23:38)
[2021-02-26] MEDS: ASPIRIN 81 MG PO SCH (07:42)
[2021-02-26] MEDS: PANTOPRAZOLE 40 MG TABLET PO SCH (07:42)
[2021-02-26] MEDS: ATORVASTATIN 20 MG TAB PO SCH (07:42)
[2021-02-26] MEDS: FOLIC ACID 1 MG TAB PO SCH (07:42)
[2021-02-26] MEDS: amLODIPine 5 MG TAB PO SCH (07:42)
[2021-02-26] MEDS: METOPROLOL TARTRATE 12.5 MG TAB PO SCH (07:42)
[2021-02-26] MEDS: THIAMINE 100 MG TAB PO SCH (07:42)
[2021-02-26] MEDS: MULTIVITAMINS, THERA 1 EACH TAB PO SCH (07:42)
[2021-02-26] MEDS: prednisoLONE ACETATE 1% OPHTH DROPS 5 ML BTL RIGHT EYE SCH (07:43)
[2021-02-26] MEDS: SODIUM CHLORIDE 0.9% 1,000 ML IV SCH (07:44)
[2021-02-26 07:46] VITALS: BP 145/81; PULSE 67; RESP 14; TEMP 98.1
--- NOTE | 2021-02-26 14:52 | P.DS ---
Providers Date of admission: 02/24/21 22:18 Expected date of discharge: 02/26/21 Attending physician: Erasmo Fowler MD Primary care physician: Stated None Hospital Course: Acute alcohol intoxication with delirium Alcohol withdrawal syndrome Multiple falls Patient was admitted with alcohol intoxication as well as multiple falls with plan to monitor for alcohol withdrawal syndrome. She did not require signifi cant amount of benzodiazepines. She was monitored on telemetry which was negative for arrhythmia. She was given folic acid, B12, thiamine, banana bag. He was counseled extensively on quitting alcohol, and social work gave her resources for rehabilitation. She had outpatient rehab scheduled for next week. Patient to follow-up with primary care provider for further management. Hypertension Patient's home medications were refilled as patient reported having lost her home medications Assessment: Gen: awake, alert HEENT: normocephalic, atraumatic, good hearing acuity, moist mucous membranes Resp: good air exchange, breathing comfortably with no accessory muscle use CVS: good distal perfusion x 4, GI: soft, NTTP, ND : no SPT, no CVAT, nolasco catheter not present MSK: no pitting edema, no clubbing Neuro: non-focal, moving all extremities Psych: cooperative, euthymic mood Patient Condition at Discharge: Good Plan - Discharge Summary Discharge Rx Participant: No New Discharge Prescriptions: Continue Prednisolone Acetate/Pf [Prednisolone Acet 1% Eye Drop] 1 drop RIGHT EYE BID Folic Acid 1 mg PO DAILY@1200 tab Thiamine [Vitamin B-1] 100 mg PO DAILY@1200 tab Atorvastatin [Lipitor] 20 mg PO DAILY #30 tab Metoprolol Tartrate [Lopressor] 12.5 mg PO BID #30 tab amLODIPine [Norvasc] 5 mg PO DAILY #30 tab Melatonin 3 mg PO HS tablet Acetaminophen Tab [Tylenol] 650 mg PO Q6HR PRN tab PRN Reason: Fever And/ Or Pain Multivitamins, Thera [Multivitamin (formulary)] 1 tab PO DAILY@1200 Aspirin EC [Ecotrin Low Dose] 81 mg PO DAILY #30 tablet. Pantoprazole [Protonix] 40 mg PO AC-BRKFST #14 tablet. ALPRAZolam [Xanax] 0.25 mg PO BID PRN PRN Reason: Anxiety Discharge Medication List Prednisolone Acetate/Pf [Prednisolone Acet 1% Eye Drop] 1 drop RIGHT EYE BID 12/18/20 [History] Acetaminophen Tab [Tylenol] 650 mg PO Q6HR PRN tab 12/22/20 [Rx] Folic Acid 1 mg PO DAILY@1200 tab 12/22/20 [Rx] Melatonin 3 mg PO HS tablet 12/22/20 [Rx] Thiamine [Vitamin B-1] 100 mg PO DAILY@1200 tab 12/22/20 [Rx] Multivitamins, Thera [Multivitamin (formulary)] 1 tab PO DAILY@1200 12/23/20 [History] Aspirin EC [Ecotrin Low Dose] 81 mg PO DAILY #30 tablet. 12/28/20 [Rx] Pantoprazole [Protonix] 40 mg PO AC-BRKFST #14 tablet. 01/04/21 [Rx] ALPRAZolam [Xanax] 0.25 mg PO BID PRN 02/24/21 [History] Atorvastatin [Lipitor] 20 mg PO DAILY #30 tab 02/26/21 [Rx] Metoprolol Tartrate [Lopressor] 12.5 mg PO BID #30 tab 02/26/21 [Rx] amLODIPine [Norvasc] 5 mg PO DAILY #30 tab 02/26/21 [Rx] Follow up Appointment(s)/Referral(s): None,Stated [Primary Care Provider] - 1-2 days Patient Instructions/Handouts: Abuse of Alcohol ([facility]) Activity/Diet/Wound Care/Special Instructions: activity as tolerated heart healthy diet Discharge Disposition: HOME SELF-CARE
== END 2021-02-26 14:28 | disposition home or self-care (01) ==
LOC: EC 18:40 → 1SOBS 22:18 → 6NMEDSUR 02-25 14:29
PROVIDERS: ADMIT Internal Medicine; ATTEND Internal Medicine
DX: F10.221 Alcohol dependence with intoxication delirium (principal); F10.239 Alcohol dependence with withdrawal, unspecified; D75.89 Other specified diseases of blood and blood-forming organs; E11.9 Type 2 diabetes mellitus without complications; E78.5 Hyperlipidemia, unspecified; F17.200 Nicotine dependence, unspecified, uncomplicated; F41.0 Panic disorder [episodic paroxysmal anxiety]; I25.10 Atherosclerotic heart disease of native coronary artery without angina pectoris; I10 Essential (primary) hypertension; R29.6 Repeated falls; Z59.0 Homelessness; Z79.82 Long term (current) use of aspirin; Z79.899 Other long term (current) drug therapy; Z82.49 Family history of ischemic heart disease and other diseases of the circulatory system; Z86.73 Personal history of transient ischemic attack (TIA), and cerebral infarction without residual deficits; Z90.710 Acquired absence of both cervix and uterus
CPT/HCPCS: 96361 ×2; 96360; 99285; 36415; 93005; 97162; 82747; 80053 ×2; 82607; 83735; 84484; 85025 ×2; 85610; 85730; 81001; 82306; 83036; 71046; 72125; 70450; G0378 ×3; G0480; 80320

== ENCOUNTER 2021-04-09 19:07 | Emergency (ER) | payer OTHER ==
[2021-04-09 19:12] VITALS: RESP 18; TEMP 98.1
[2021-04-09 19:30] LABS: Glucose,Whole Blood 77 mg/dL (75-99)
[2021-04-09 20:38] LABS: Basophils % (A) 1 %; Eosinophils # (A) 0.1 k/uL (0-0.7); Eosinophils % (A) 2 %; HCT 38.8 % (34.0-46.0); HGB 12.7 gm/dL (11.4-16.0); Lymphocytes # (A) 1.9 k/uL (1.0-4.8); Lymphocytes % (A) 45 %; MCH 35.2 pg (25.0-35.0); MCHC 32.7 g/dL (31.0-37.0); MCV 107.7 fL (80.0-100.0); Macrocytosis Moderate; Monocytes # (A) 0.2 k/uL (0-1.0); Monocytes % (A) 4 %; Neutrophils # (A) 1.9 k/uL (1.3-7.7); Neutrophils % (A) 45 %; Platelet Count 283 k/uL (150-450); RBC 3.61 m/uL (3.80-5.40); WBC 4.3 k/uL (3.8-10.6)
[2021-04-09 20:53] LABS: Chloride 104 mmol/L (98-107)
--- NOTE | 2021-04-09 20:55 | XR ---
EXAMINATION TYPE: XR chest 2V DATE OF EXAM: 04/09/2021 COMPARISON: 02/24/2021 INDICATION: Chest pain TECHNIQUE: Frontal and lateral views of the chest are obtained. FINDINGS: The heart size is normal. The pulmonary vasculature is normal. The lungs are clear. There is hyperinflation and flattening of diaphragms compatible with COPD. No s ignificant interval change is evident. IMPRESSION: 1. No acute pulmonary process. 2. COPD
[2021-04-09 20:56] LABS: ALT 12 U/L (4-34); AST 30 U/L (14-36); African American GFR (CKD) >90 (>60 ml/min/1.73 sqM); Albumin 5.2 g/dL (3.5-5.0); Alkaline Phosphatase 81 U/L (38-126); Anion Gap 17 mmol/L; Blood Urea Nitrogen 14 mg/dL (7-17); Calcium 9.9 mg/dL (8.4-10.2); Carbon Dioxide 23 mmol/L (22-30); Glucose 94 mg/dL (74-99); Magnesium 1.7 mg/dL (1.6-2.3); Non-African American GFR(CKD) 83 (>60 ml/min/1.73 sqM); Sodium 144 mmol/L (137-145); Total Bilirubin 0.5 mg/dL (0.2-1.3); Total Protein 8.5 g/dL (6.3-8.2)
[2021-04-09 21:00] LABS: Potassium 4.8 mmol/L (3.5-5.1)
[2021-04-09 21:05] LABS: INR 0.9 (<1.2); Partial Thromboplastin Time 23.1 sec (22.0-30.0); Prothrombin Time 10.1 sec (9.0-12.0)
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
[2021-04-10 00:26] VITALS: BP 121/51; PULSE 87
== END 2021-04-10 00:26 | disposition home or self-care (01) ==
LOC: EC 19:07
DX: R07.9 Chest pain, unspecified (principal); R42 Dizziness and giddiness; G89.29 Other chronic pain; I10 Essential (primary) hypertension; E78.5 Hyperlipidemia, unspecified; E11.36 Type 2 diabetes mellitus with diabetic cataract; I25.2 Old myocardial infarction; F41.9 Anxiety disorder, unspecified; F17.200 Nicotine dependence, unspecified, uncomplicated; Z86.73 Personal history of transient ischemic attack (TIA), and cerebral infarction without residual deficits; Z90.710 Acquired absence of both cervix and uterus; Z79.82 Long term (current) use of aspirin; Z86.19 Personal history of other infectious and parasitic diseases; Z87.19 Personal history of other diseases of the digestive system
CPT/HCPCS: 36415; 71046; 80053; 83735; 84484; 85025; 85610; 85730; 93005; 99285

== ENCOUNTER 2021-10-24 15:26 | Inpatient (IN) | payer MEDICARE, OTHER ==
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
[2021-10-24 17:29] LABS: Basophils % (A) 1 %; Eosinophils # (A) 0.1 k/uL (0-0.7); Eosinophils % (A) 3 %; HCT 38.4 % (34.0-46.0); HGB 12.9 gm/dL (11.4-16.0); Lymphocytes # (A) 1.2 k/uL (1.0-4.8); Lymphocytes % (A) 26 %; MCH 33.2 pg (25.0-35.0); MCHC 33.5 g/dL (31.0-37.0); MCV 99.1 fL (80.0-100.0); Mean Platelet Volume 8.7; Monocytes # (A) 0.3 k/uL (0-1.0); Monocytes % (A) 6 %; Neutrophils % (A) 63 %; Platelet Count 249 k/uL (150-450); RBC 3.88 m/uL (3.80-5.40); RDW 14.2 % (11.5-15.5); WBC 4.7 k/uL (3.8-10.6)
[2021-10-24 17:40] LABS: ALT 7 U/L (4-34); AST 20 U/L (14-36); African American GFR (CKD) >90 (>60 ml/min/1.73 sqM); Albumin 4.4 g/dL (3.5-5.0); Alkaline Phosphatase 86 U/L (38-126); Anion Gap 8 mmol/L; Blood Urea Nitrogen 14 mg/dL (7-17); Calcium 9.5 mg/dL (8.4-10.2); Carbon Dioxide 27 mmol/L (22-30); Chloride 103 mmol/L (98-107); Glucose 93 mg/dL (74-99); Non-African American GFR(CKD) >90 (>60 ml/min/1.73 sqM); Sodium 138 mmol/L (137-145); Total Bilirubin 0.8 mg/dL (0.2-1.3); Total Protein 7.3 g/dL (6.3-8.2)
[2021-10-24 17:44] LABS: INR 0.9 (<1.2); Partial Thromboplastin Time 22.1 sec (22.0-30.0); Prothrombin Time 10.3 sec (9.0-12.0)
--- NOTE | 2021-10-24 17:48 | XR ---
EXAMINATION TYPE: XR chest 2V DATE OF EXAM: 10/24/2021 COMPARISON: 04/09/2021 HISTORY: Dizziness TECHNIQUE: FINDINGS: There is no heart failure nor confluent pneumonic infiltrate. Costophrenic angles are clear. There is old healed right posterior rib fracture. There are chest leads. Bony thorax is otherwise intact. IMPRESSION: No active cardiopulmonary disease. No change.
[2021-10-24 18:00] LABS: Potassium 3.7 mmol/L (3.5-5.1)
--- NOTE | 2021-10-24 18:54 | CT ---
EXAMINATION TYPE: CT brain wo con for TPA DATE OF EXAM: 10/24/2021 COMPARISON: 02/24/2021 HISTORY: weakness CT DLP: 1160.4 mGycm Automated exposure control for dose reduction was used. Images of the brain obtained without contrast. There is some cerebral cortical atrophy. There is 2 x 1 cm area of hypodensity in the left internal c apsule consistent with old lacunar infarct. There is no midline shift. No sign of intracranial hemorr jay. Calvarium is intact. There is normal aeration of the mastoid sinuses. IMPRESSION: Cerebral atrophy. 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 No acute abnormality.
[2021-10-24] MEDS ORDERED: ASPIRIN 325 MG TAB PO STA (19:07)
--- NOTE | 2021-10-24 19:15 | CT ---
EXAMINATION TYPE: CT angio head neck DATE OF EXAM: 10/24/2021 COMPARISON: None HISTORY: weakness, ams CT DLP: 330.1 mGycm Automated exposure control for dose reduction was used. CONTRAST: Performed with IV Contrast, patient injected with 100 mL of Isovue 370. Images obtained from the aortic arch to the vertex of the brain with IV contrast. There are 3-D post processed images. There is normal branching pattern of the great vessels on the aortic arch. There is bilateral arteria l flow in the subclavian arteries. There is arterial flow in the common internal and external cardiac arteries bilaterally. There is fairly wide patency of the carotid artery bifurcations. There is amish rial flow in both vertebral arteries. There is arterial flow in the vertebrobasilar artery system. No evidence of carotid or vertebral artery aneurysm or dissection. There is flow in both intracranial i nternal carotid arteries. There is arterial flow in the anterior middle and posterior cerebral arteries bilaterally. No mass ef fect. No evidence of intracranial aneurysm or neovascularity. No evidence of hemodynamic stenosis. Th ere is normal enhancement of the venous sinuses. IMPRESSION: Negative CT angiogram of the neck. Negative CT angiogram of the brain.
[2021-10-24] MEDS ORDERED: ATORVASTATIN 80 MG TAB PO SCH (21:00)
[2021-10-25] MEDS: ASPIRIN 325 MG TAB PO SCH (09:00)
[2021-10-25 09:38] LABS: Chol/HDL Ratio 2.53 Ratio; LDL Cholesterol,Calculated 70.4 mg/dL (0.0-131.0)
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
[2021-10-25] MEDS: amLODIPine 5 MG TAB PO SCH (14:28)
[2021-10-25] MEDS: SODIUM CHLORIDE 0.9% 1,000 ML IV SCH ×2 (17:43→17:44)
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
[2021-10-25] MEDS: ATORVASTATIN 40 MG TAB PO SCH (21:49)
[2021-10-25] MEDS: HEPARIN SODIUM,PORCINE/PF 5,000 UNIT/0.5 ML SYRINGE SQ SCH (21:49)
[2021-10-26] MEDS ORDERED: amLODIPine 5 MG TAB ONE (08:00)
[2021-10-26] MEDS ORDERED: CLOPIDOGREL 75 MG TAB ONE (08:00)
[2021-10-26] MEDS ORDERED: ASPIRIN 325 MG TAB ONE (08:00)
[2021-10-26] MEDS ORDERED: HEPARIN SODIUM,PORCINE 5,000 UNIT/ML 1 ML VIAL ONE (08:00)
[2021-10-26] MEDS: CLOPIDOGREL 75 MG TAB PO SCH (14:00)
[2021-10-26] MEDS: ASPIRIN 325 MG TAB PO SCH (14:00)
[2021-10-26] MEDS: amLODIPine 5 MG TAB PO SCH (14:00)
[2021-10-26] MEDS: HEPARIN SODIUM,PORCINE/PF 5,000 UNIT/0.5 ML SYRINGE SQ SCH ×2 (14:01→20:42)
--- NOTE | 2021-10-26 16:04 | P.PN ---
Subjective Progress Note Date: 10/26/21 The patient is seen at bedside and feels about the same. Denies any worsening of her condition. Objective - Vital Signs Vital signs: Vital Signs Temp 98.0 F 10/26/21 12:00 Pulse 66 10/26/21 14:00 Resp 16 10/26/21 14:00 BP 157/86 10/26/21 12:00 Pulse Ox 100 10/26/21 12:00 Intake & Output 10/25/21 10/26/21 10/26/21 18:59 06:59 18:59 Intake Total 940 10 340 Balance 940 10 340 Weight 59.421 kg Intake: IV 10 0.9 10 Oral 940 340 Other: Voiding Method Toilet Toilet # Voids 2 1 - Exam GENERAL: The patient is lying in bed and is not in acute distress. NEUROLOGICAL: Higher mental function: The patient is awake, alert, oriented to self, place and time. Patient is following commands. No aphasia and no neglect. Cranial nerves: The pupils are round, equal and reactive to light and accommodation. Visual higgins are full to confrontation throughout. Extraocular movement is intact no nystagmus is noted. Facial sensation is normal to touch throughout. The facial strength is mild to moderate right lower facial weaknes s. Hearing is normal bilaterally to hand rub. Tongue is midline and moved [id number] without any difficulty. No dysarthria is noted. Shoulder shrug is normal bilaterally. Motor: Gait is deferred. The strength is right forearm flexion is 4+ to 5-, right hand banking paralegal is 4+. Otherwise 5 over 5 throughout. Normal tone and bulk. Cerebellum: Normal finger to nose heel to hauser bilaterally. Sensation: Sensation is normal to touch throughout. Reflexes (right/left): 2+ throughout. Plantars are downgoing bilaterally. WORK-UP: Lipid Panel: TG 150, Cholestrol 166, LDL [address] the head is reported as cerebral atrophy. 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 No acute abnormality. I personally reviewed the CT of the head and I agree there is no acute subacute ischemia patient does have an old left basal ganglia stroke I also felt there is a small lacunar over the right basal ganglia. Upon looking at the patient the review CT of the head 10/2020 I did not see out of the left basal ganglia ischemic stroke. CT angiography of the head and neck as reported as negative. - Labs CBC & Chem 7: 10/24/21 17:21 10/24/21 17:21 Assessment and Plan Assessment: Acute Right facial droop and right upper extremity weakness (distal portion) since this past Tuesday/ is likely due to acute to subacute ischemic stroke. No IV TPA since the patient is outside the window and the risk outweigh benefit History of old stroke over the basal ganglia (internal capsule predominately le ft). Borderline Diabetes mellitus History of TIA about 25 years ago History of hypertension Hyperlipidemia Plan: Continue aspirin 325mg daily (was on home dose 81mg daily) and Plavix 75 mg daily. Continue Lipitor 40 mg daily at bedtime for secondary stroke prophylaxi s. MRI of the brain is pending. 2-D echo pending. PT, OT and PULP OPERATOR are consulted Every 4 hours neuro checks Placed on cardiac monitoring We'll defer the rest of the medical management to the primary team subcu heparin 5000 units every 12 hours for DVT prophylaxis The plan is discussed with patient and her nurse. Ravi Mueller M.D. Neuro-hospitalist Time with Patient: Less than 30
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
[2021-10-26 20:32] LABS: Glucose,Whole Blood 94 mg/dL (75-99)
[2021-10-26] MEDS: INSULIN ASPART (NovoLOG) 100 UNIT/ML VIAL SQ SCH (20:40)
[2021-10-26] MEDS: NICOTINE 7MG/24HR PATCH TRANSDERM SCH (20:41)
[2021-10-26] MEDS: ATORVASTATIN 40 MG TAB PO SCH (20:41)
[2021-10-26] MEDS: CHLORTHALIDONE 25 MG TAB PO SCH (20:41)
[2021-10-27] MEDS: INSULIN ASPART (NovoLOG) 100 UNIT/ML VIAL SQ SCH ×3 (06:29→17:29)
[2021-10-27 06:30] LABS: Glucose,Whole Blood 100 mg/dL (75-99)
[2021-10-27] MEDS: CLOPIDOGREL 75 MG TAB PO SCH (08:42)
[2021-10-27] MEDS: CHLORTHALIDONE 25 MG TAB PO SCH (08:42)
[2021-10-27] MEDS: ASPIRIN 325 MG TAB PO SCH (08:42)
[2021-10-27] MEDS: amLODIPine 5 MG TAB PO SCH (08:42)
[2021-10-27] MEDS: NICOTINE 7MG/24HR PATCH TRANSDERM SCH (08:42)
[2021-10-27] MEDS: HEPARIN SODIUM,PORCINE/PF 5,000 UNIT/0.5 ML SYRINGE SQ SCH ×2 (08:42→20:06)
[2021-10-27 11:51] LABS: Glucose,Whole Blood 95 mg/dL (75-99)
--- NOTE | 2021-10-27 14:01 | P.PN ---
Subjective Progress Note Date: 10/27/21 The patient is seen at bedside and feels about the same. She continues to have right facial droop. Otherwise denies of any other neurological deficits. Objective - Vital Signs Vital signs: Vital Signs Temp 97.7 F 10/27/21 08:00 Pulse 70 10/27/21 08:00 Resp 18 10/27/21 08:00 BP 136/83 10/27/21 08:00 Pulse Ox 100 10/27/21 08:00 Intake & Output 10/26/21 10/27/21 10/27/21 18:59 06:59 18:59 Intake Total 340 10 118 Balance 340 10 118 Intake: IV 10 0.9 10 Oral 340 118 Other: Voiding Method Toilet Toilet Toilet # Voids 1 - Exam GENERAL: The patient is lying in bed and is not in acute distress. NEUROLOGICAL: Higher mental function: The patient is awake, alert, oriented to self, place and time. Patient is following commands. No aphasia and no neglect. Cranial nerves: The pupils are round, equal and reactive to light and accommodation. Visual higgins are full to confrontation throughout. Extraocular movement is intact no nystagmus is noted. Facial sensation is normal to touch throughout. The facial strength is moderate right lower facial weakness. Hearing is normal bilaterally to hand rub. Tongue is midline and moved [id number] without any difficulty. No dysarthria is noted. Shoulder shrug is normal bilaterally. Motor: Gait is deferred. The strength is right forearm flexion is 4+ to 5-, right hand nail kegger is 4+. Otherwise 5 over 5 throughout. Normal tone and bulk. Cerebellum: Normal finger to nose heel to hauser bilaterally. Sensation: Sensation is normal to touch throughout. Reflexes (right/left): 2+ throughout. Plantars are downgoing bilaterally. WORK-UP: Lipid Panel: TG 150, Cholestrol 166, LDL [address] the head is reported as cerebral atrophy. 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 No acute abnormality. I personally reviewed the CT of the head and I agree there is no acute subacute ischemia patient does have an old left basal ganglia stroke I also felt there is a small lacunar over the right basal ganglia. Upon looking at the patient the review CT of the head 10/2020 I did not see out of the left basal ganglia ischemic stroke. CT angiography of the head and neck as reported as negative. - Labs CBC & Chem 7: 10/24/21 17:21 10/24/21 17:21 Labs: Abnormal Lab Results - Last 24 Hours (Table) 10/27/21 Range/Units 06:29 POC Glucose (mg/dL) 100 H (75-99) mg/dL Assessment and Plan Assessment: Acute Right facial droop and right upper extremity weakness (distal portion) since this past Tuesday/ is likely due to acute to subacute ischemic stroke. No IV TPA since the patient is outside the window and the risk outweigh benefit History of old stroke over the basal ganglia (internal capsule predominately left). Borderline Diabetes mellitus History of TIA about 25 years ago History of hypertension Hyperlipidemia Plan: Continue aspirin 325mg daily (was on home dose 81mg daily) and Plavix 75 mg daily. Continue Lipitor 40 mg daily at bedtime for secondary stroke prophylaxis. MRI of the brain is pending. 2-D echo pending. PT, OT and FILLER SHREDDER are consulted Every 4 hours neuro checks Placed on cardiac monitoring We'll defer the rest of the medical management to the primary team subcu heparin 5000 units every 12 hours for DVT prophylaxis The plan is discussed with patient and her nurse. Ravi Mueller M.D. Neuro-hospitalist Time with Patient: Less than 30
--- NOTE | 2021-10-27 15:50 | MR ---
"EXAMINATION TYPE: MR brain wo con DATE OF EXAM: 10/27/2021 COMPARISON: CT brain 3 days ago HISTORY: right facial droop. stroke TECHNIQUE: Multiplanar, multisequence imaging of the brain and brainstem is performed without IV cont rast. FINDINGS: Diffusion weighted images demonstrate area of increased signal on diffusion weighted images with dimi nished signal on 80 cc mapping showing T1 hypointensity and T2 hyperintensity in the posterior left f rontal lobe at level of mills radiata measuring 11 x 4 mm. Finding consistent with evolving acute in farct. There is evidence of old infarct near this level correlating with recent CT. Mild ventricular and sulcal prominence. Scattered lesions of T2 hyperintensity throughout the white m atter bilaterally. Approximately 40 scattered lesions are seen. Midline structures demonstrate normal morphology. The craniocervical junction appears within normal limits. Normal vascular flow voids are present. The visualized sinuses are clear and the globes are i ntact. IMPRESSION: 1. Evolving acute lacunar infarct posterior deep left frontal lobe at level of mills radiata near si te of old infarct. 2. Background mild diffuse cerebral atrophy and moderate chronic small vessel ischemic change is appr eciated. A Yellow level critical message alert has been initiated for Geronimo Sahu MD via the [employer] 36 0 | Critical Results System on 10/27/2021 3:48 PM. This message alert has been sent to Geronimo Sahu MD via the preferences provided by the clinician for the receipt of Radiology Critical Findings. [facility] ID [id number]."
[2021-10-27 16:49] LABS: Glucose,Whole Blood 104 mg/dL (75-99)
--- NOTE | 2021-10-27 17:39 | CA ---
Transthoracic Echo Report Name: Blanca Olson Age: 66 Gender: F : 1955 Exam Date: 10/26/2021 14:06 Exam Location: [facility] Ht (in): 68 Wt (lb): 131 Ordering Physician: Rashad Ragland MD Attending/Referring Phys: [id number], Ellyn Milk Inspector Georgette Melendrez, JANNET Procedure CPT: Indications: Thrombus Cardiac Hx: SMOKER, COPD Technical Quality: Contrast 1: N/A Total Dose (mL): Contrast 2: Total Dose (mL): MEASUREMENTS (Male / Female) Normal Values 2D ECHO LV Diastolic Diameter PLAX 3.7 cm 4.2 - 5.9 / 3.9 - 5.3 cm LV Systolic Diameter PLAX 2.7 cm IVS Diastolic Thickness 1.1 cm 0.6 - 1.0 / 0.6 - 0.9 cm LVPW Diastolic Thickness 0.8 cm 0.6 - 1.0 / 0.6 - 0.9 cm LV Relative Wall Thickness 0.5 RV Internal Dim ED PLAX 2.5 cm LA Systolic Diameter LX 3.5 cm 3.0 - 4.0 / 2.7 - 3.8 cm LA Volume 88.5 cm 18 - 58 / 22 - 52 cm M-MODE Aortic Root Diameter MM 2.8 cm LA Systolic Diameter MM 3.5 cm LA Ao Ratio MM 1.3 MV E Point Septal Separation 0.7 cm AV Cusp Separation MM 1.6 cm DOPPLER MV Area PHT 7.5 cm Mitral E Point Velocity 55.1 cm/s Mitral A Point Velocity 52.9 cm/s Mitral E to A Ratio 1.0 MV Deceleration Time 100.7 ms MV E' Velocity 7.1 cm/s Mitral E to MV E' Ratio 7.8 TR Peak Velocity 256.8 cm/s TR Peak Gradient 26.4 mmHg Right Ventricular Systolic Press 29.2 mmHg FINDINGS Left Ventricle Normal left ventricular size, wall thickness, systolic function with no obvious regional wall motion abnormalities. Normal left ventricular diastolic filling pattern for age. The ejection fraction is visually estimated at %. Right Ventricle The right ventricle is normal in size and function. Right Atrium The right atrium is normal in size. Left Atrium The left atrium is normal in size. Mitral Valve Structurally normal mitral valve without significant stenosis or prolapse. There is no mitral regurgitation. Aortic Valve Structurally normal aortic valve without significant sclerosis or stenosis. There is no aortic regurgitation. Tricuspid Valve Structurally normal tricuspid valve without significant stenosis. Pulmonary artery systolic pressure is normal. Pulmonic Valve Structurally normal pulmonic valve without significant stenosis. There is no pulmonic regurgitation. Pericardium Normal pericardium without effusion. Aorta Normal aortic root dimension. CONCLUSIONS Normal left ventricular size and systolic function. There is mild concentric LVH. Mild mitral and tricuspid insufficiency. No pericardial effusion Previewed by: Dr. Jairo Cervantes MD (Electronically Signed) Final Date: 27 October 2021 17:38
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
[2021-10-27] MEDS: ATORVASTATIN 40 MG TAB PO SCH (20:05)
[2021-10-27 20:44] LABS: Glucose,Whole Blood 95 mg/dL (75-99)
[2021-10-28 06:00] LABS: Glucose,Whole Blood 96 mg/dL (75-99)
[2021-10-28] MEDS: INSULIN ASPART (NovoLOG) 100 UNIT/ML VIAL SQ SCH ×2 (06:05→10:28)
[2021-10-28 10:18] VITALS: BP 119/80; PULSE 69; RESP 18; TEMP 97.8
[2021-10-28] MEDS: amLODIPine 5 MG TAB PO SCH (10:23)
[2021-10-28] MEDS: HEPARIN SODIUM,PORCINE/PF 5,000 UNIT/0.5 ML SYRINGE SQ SCH (10:23)
[2021-10-28] MEDS: NICOTINE 7MG/24HR PATCH TRANSDERM SCH (10:23)
[2021-10-28] MEDS: ASPIRIN 325 MG TAB PO SCH (10:23)
[2021-10-28] MEDS: CLOPIDOGREL 75 MG TAB PO SCH (10:23)
[2021-10-28] MEDS: CHLORTHALIDONE 25 MG TAB PO SCH (10:23)
[2021-10-28 11:58] LABS: Glucose,Whole Blood 97 mg/dL (75-99)
--- NOTE | 2021-10-28 12:24 | P.PN ---
Subjective Progress Note Date: 10/28/21 The patient is seen at bedside and continues to feel the same. Denies of any worsening of her neurological condition. Objective - Vital Signs Vital signs: Vital Signs Temp 97.8 F 10/28/21 08:00 Pulse 69 10/28/21 08:00 Resp 18 10/28/21 08:00 BP 119/80 10/28/21 08:00 Pulse Ox 100 10/28/21 08:00 Intake & Output 10/27/21 10/28/21 10/28/21 18:59 06:59 18:59 Intake Total 236 Balance 236 Intake: Oral 236 Other: Voiding Method Toilet Toilet # Voids 1 - Exam GENERAL: The patient is lying in bed and is not in acute distress. NEUROLOGICAL: Higher mental function: The patient is awake, alert, oriented to self, place and time. Patient is following commands. No aphasia and no neglect. Cranial nerves: The pupils are round, equal and reactive to light and accommodation. Visual higgins are full to confrontation throughout. Extraocular movement is intact no nystagmus is noted. Facial sensation is normal to touch throughout. The facial strength is moderate right lower facial weakness. Hearing is normal bilaterally to hand rub. Tongue is midline and moved [id number] without any difficulty. No dysarthria is noted. Shoulder shrug is normal bilaterally. Motor: Gait is deferred. The strength is right forearm flexion is 5-, right hand marketing traffic manager is 4+. Otherwise 5 over 5 throughout. Normal tone and bulk. Cerebellum: Normal finger to nose heel to hauser bilaterally. Sensation: Sensation is normal to touch throughout. Reflexes (right/left): 2+ throughout. Plantars are downgoing bilaterally. WORK-UP: Lipid Panel: TG 150, Cholestrol 166, LDL [address] the head is reported as cerebral atrophy. 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 No acute abnormality. I personally reviewed the CT of the head and I agree there is no acute subacute ischemia patient does have an old left basal ganglia stroke I also felt there is a small lacunar over the right basal ganglia. Upon looking at the patient the review CT of the head 10/2020 I did not see out of the left basal ganglia ischemic stroke. CT angiography of the head and neck as reported as negative. 2D echo: It is reported as Normal left ventircular size and systolic function. Mild Concentric LVH. Left atrial is normal in size. MRI Brain: It is reported as evolving acute lacunar infarct posterior deep left frontal lobe at level of mills radiata near site of old infarct. Background mild diffuse cerebral atrophy and moderate chronic small vessel ischemic changes is appreciated. I personally reviewed MRI and agree with report. - Labs CBC & Chem 7: 10/24/21 17:21 10/24/21 17:21 Labs: Abnormal Lab Results - Last 24 Hours (Table) 10/27/21 Range/Units 16:43 POC Glucose (mg/dL) 104 H (75-99) mg/dL Assessment and Plan Assessment: Acute to subacute ischemic stroke (posterior deep left frontal lobe at level of mills radiata. Has Right facial droop and right upper extremity weakness (distal portion)). No IV TPA since the patient is outside the window and the risk outweigh benefit. Stroke seems due to her risk factors (small vessel disease). Can rule out embolic. History of old stroke over the basal ganglia (internal capsule predominately left). Borderline Diabetes mellitus History of TIA about 25 years ago History of hypertension Hyperlipidemia Plan: Continue aspirin 325mg daily (was on home dose 81mg daily) and Plavix 75 mg daily. Continue dual antiplatelets for 21 days and after that only Plavix 75mg daily from neurological perspective. Continue Lipitor 40 mg daily at bedtime for secondary stroke prophylaxis. PT, OT and EMERGENCY MEDICAL TECHNICIAN BASIC are consulted Every 4 hours neuro checks On cardiac monitoring We'll defer the rest of the medical management to the primary team subcu heparin 5000 units every 12 hours for DVT prophylaxis Recommend the patient to follow-up with neurologist as outpatient within 1-2 weeks. The plan is discussed with patient and primary team. No additional work-up and patient is clear for discharge from neurological perspective. Ravi Mueller M.D. Neuro-hospitalist Time with Patient: Less than 30
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
== END 2021-10-28 16:19 | DRG 64 ==
LOC: EC 15:26 → EEVIPCON 19:24 → 3SCARD 19:24
PROVIDERS: ADMIT Hospitalist; ATTEND Hospitalist
DX: I63.81 Other cerebral infarction due to occlusion or stenosis of small artery (principal); E43 Unspecified severe protein-calorie malnutrition; Z68.1 Body mass index [BMI] 19.9 or less, adult; G81.91 Hemiplegia, unspecified affecting right dominant side; R29.810 Facial weakness; E78.00 Pure hypercholesterolemia, unspecified; E78.5 Hyperlipidemia, unspecified; F17.210 Nicotine dependence, cigarettes, uncomplicated; F41.0 Panic disorder [episodic paroxysmal anxiety]; G25.81 Restless legs syndrome; I10 Essential (primary) hypertension; I25.2 Old myocardial infarction; T80.92XA Unspecified transfusion reaction, initial encounter; Y84.8 Other medical procedures as the cause of abnormal reaction of the patient, or of later complication, without mention of misadventure at the time of the procedure; Z79.02 Long term (current) use of antithrombotics/antiplatelets; Z79.82 Long term (current) use of aspirin; Z79.899 Other long term (current) drug therapy; Z82.49 Family history of ischemic heart disease and other diseases of the circulatory system; Z90.710 Acquired absence of both cervix and uterus; Z98.41 Cataract extraction status, right eye; E11.36 Type 2 diabetes mellitus with diabetic cataract; H26.9 Unspecified cataract; Z98.890 Other specified postprocedural states; Z86.718 Personal history of other venous thrombosis and embolism; Z86.73 Personal history of transient ischemic attack (TIA), and cerebral infarction without residual deficits
CPT/HCPCS: 36415; 70450; 70496; 70498; 70551; 71046; 80053; 80061; 83036; 84443; 84484; 85025; 85610; 85730; 93005; 93306; 99285

== ENCOUNTER 2021-12-25 17:04 | Inpatient (IN) | payer MEDICARE, OTHER ==
[2021-12-25] MEDS ORDERED: HYDROcodone/APAP 5-325MG 1 EACH TAB PO STA (18:18)
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
--- NOTE | 2021-12-25 19:15 | XR ---
EXAMINATION TYPE: XR tibia fibula RT DATE OF EXAM: 12/25/2021 COMPARISON: NONE HISTORY: Pain TECHNIQUE: 2 view FINDINGS: There is nondisplaced fracture of the distal fibula. Ankle mortise appears anatomic. Knee j oint appears intact. IMPRESSION: Acute nondisplaced distal fibula fracture.
--- NOTE | 2021-12-25 19:16 | XR ---
EXAMINATION TYPE: XR ankle complete RT DATE OF EXAM: 12/25/2021 COMPARISON: NONE HISTORY: Pain TECHNIQUE: 3 views FINDINGS: There is nondisplaced oblique fracture of the distal fibula. There is also a nondisplaced t ransverse fracture across the medial malleolus. There is soft tissue swelling around the ankle. Joint spaces are normal. IMPRESSION: Acute nondisplaced bimalleolar fracture of the right ankle.
[2021-12-25] MEDS ORDERED: ACET/COD 300 MG/30 MG STARTER PACK 6 TAB BTL PO STA (19:27)
[2021-12-25] MEDS ORDERED: SODIUM CHLORIDE 0.9% 1,000 ML IV STA (20:47)
[2021-12-25] MEDS ORDERED: ONDANSETRON 4 MG/2 ML VIAL IVP PRN (20:56)
[2021-12-25] MEDS ORDERED: HEPARIN SODIUM,PORCINE/PF 5,000 UNIT/0.5 ML SYRINGE SQ STA (20:56)
[2021-12-25] MEDS ORDERED: NALOXONE 0.4 MG/ML 1 ML VIAL IV PRN (20:56)
[2021-12-25] MEDS ORDERED: ALPRAZolam 0.25 MG TAB PO PRN (20:58)
[2021-12-26] MEDS: MORPHINE SULFATE 4 MG/ML SYRINGE IV PRN ×4 (00:33→20:37)
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
[2021-12-26 06:50] LABS: Basophils # (A) 0.1 k/uL (0-0.2); Basophils % (A) 1 %; Eosinophils # (A) 0.2 k/uL (0-0.7); Eosinophils % (A) 2 %; HCT 37.3 % (34.0-46.0); HGB 12.8 gm/dL (11.4-16.0); Lymphocytes # (A) 1.4 k/uL (1.0-4.8); Lymphocytes % (A) 17 %; MCH 33.6 pg (25.0-35.0); MCHC 34.4 g/dL (31.0-37.0); MCV 97.6 fL (80.0-100.0); Mean Platelet Volume 7.9; Monocytes # (A) 0.5 k/uL (0-1.0); Monocytes % (A) 6 %; Neutrophils % (A) 73 %; Platelet Count 331 k/uL (150-450); RBC 3.83 m/uL (3.80-5.40); RDW 12.8 % (11.5-15.5); WBC 8.3 k/uL (3.8-10.6)
[2021-12-26 06:58] LABS: ALT 25 U/L (4-34); AST 43 U/L (14-36); African American GFR (CKD) >90 (>60 ml/min/1.73 sqM); Albumin 5.4 g/dL (3.5-5.0); Alkaline Phosphatase 115 U/L (38-126); Anion Gap 17 mmol/L; Blood Urea Nitrogen 16 mg/dL (7-17); Calcium 9.6 mg/dL (8.4-10.2); Carbon Dioxide 32 mmol/L (22-30); Chloride 90 mmol/L (98-107); Glucose 107 mg/dL (74-99); INR 0.9 (<1.2); Non-African American GFR(CKD) 85 (>60 ml/min/1.73 sqM); Partial Thromboplastin Time 22.2 sec (22.0-30.0); Potassium 3.5 mmol/L (3.5-5.1); Prothrombin Time 9.7 sec (9.0-12.0); Sodium 139 mmol/L (137-145); Total Bilirubin 0.8 mg/dL (0.2-1.3)
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
[2021-12-26] MEDS: SODIUM CHLORIDE 0.9% 1,000 ML IV SCH ×2 (10:24→10:39)
[2021-12-26] MEDS: PANTOPRAZOLE 40 MG/10 ML VIAL IVP SCH ×2 (10:24→10:26)
[2021-12-26] MEDS: HEPARIN SODIUM,PORCINE/PF 5,000 UNIT/0.5 ML SYRINGE SQ SCH ×3 (10:37→23:43)
[2021-12-26] MEDS: PANTOPRAZOLE 40 MG TABLET PO SCH (10:37)
[2021-12-26] MEDS: amLODIPine 5 MG TAB PO SCH (10:37)
--- NOTE | 2021-12-26 10:40 | CT ---
EXAMINATION TYPE: CT ankle RT wo con DATE OF EXAM: 12/26/2021 COMPARISON: None HISTORY: Known fracture, evaluate displacement Unenhanced CT of the right ankle with reconstruction imaging. TECHNIQUE: Unenhanced CT of the right ankle was performed with bone and soft tissue window settings s ubmitted in the axial coronal and sagittal planes. At a separate workstation 3-D TR imaging was obta ined. FINDINGS: There is medial malleolar fracture noted with displacement of approximately 1 mm. Oblique f racture is noted to involve the distal fibula cranial to the level of the ankle mortise with displace ment of 2 mm. There is also fracture involving the tip of the lateral malleolus with displacement of 2.8 mm. Posterior malleolar fractures also noted with sub 1 mm displacement. There is a disuse osteopenia. Ankle mortise is intact. No additional fractures seen. Soft tissue swel ling noted. IMPRESSION: 1. Trimalleolar fracture as noted.
[2021-12-26 15:34] LABS: Appearance,Urine Clear (Clear); Bilirubin,Urine Negative (Negative); Blood,Urine Negative (Negative); Color,Urine Yellow; Glucose,Urine (UA) Negative (Negative); Ketones,Urine 1+ (Negative); Leukocyte Esterase,Urine Negative (Negative); Nitrite,Urine Negative (Negative); PH, Urine 7.5 (5.0-8.0); Protein,Urine Negative (Negative); Specific Gravity,Urine 1.017 (1.001-1.035); Urobilinogen,Urine <2.0 mg/dL (<2.0)
--- NOTE | 2021-12-26 18:40 | P.PN ---
Subjective Progress Note Date: 12/26/21 Principal diagnosis: Ankle fracture, hypertension, recent history of stroke The patient is a 66-year-old female with history of hypertension, recent history of stroke, status post ankle fracture currently in splint Objective - Vital Signs Vital signs: Vital Signs Temp 98.2 F 12/26/21 14:51 Pulse 87 12/26/21 14:51 Resp 18 12/26/21 14:51 BP 138/81 12/26/21 14:51 Pulse Ox 100 12/26/21 14:51 FiO2 Intake & Output 12/25/21 12/26/21 12/26/21 18:59 06:59 18:59 Intake Total 120 Balance 120 Weight 56.699 kg 56.699 kg Intake: Oral 120 Other: Voiding Method External Catheter # Voids 1 - Constitutional General appearance: Present: cooperative - Respiratory Respiratory: bilateral: CTA - Cardiovascular Rhythm: regular - Gastrointestinal General gastrointestinal: Present: normal bowel sounds - Integumentary Integumentary: Present: normal - Musculoskeletal Musculoskeletal Comment(s): Right ankle splint - Labs CBC & Chem 7: 12/25/21 20:47 12/25/21 20:47 Labs: Abnormal Lab Results - Last 24 Hours (Table) 12/25/21 12/25/21 12/26/21 Range/Units 20:47 20:47 15:05 Chloride 90 L (98-107) mmol/L Carbon Dioxide 32 H (22-30) mmol/L Glucose 107 H (74-99) mg/dL AST 43 H (14-36) U/L Total Protein 9.0 H (6.3-8.2) g/dL Albumin 5.4 H (3.5-5.0) g/dL Vitamin D 25-Hydroxy 7.9 L (30.0-100.0) ng/mL Urine Ketones 1+ H (Negative) Assessment and Plan Assessment: Continue present management of primary team, pain control, patient to be nonweightbearing she is a splint (1) Cerebrovascular accident (CVA) Narrative/Plan: At this time it is not. Is plan for surgery resume Plavix until surgery Current Visit: No Status: Acute Code(s): I63.9 - CEREBRAL INFARCTION, UNSPECIFIED SNOMED Code(s): 241372478 (2) CAD (coronary artery disease) Narrative/Plan: Continue outpatient regimen Current Visit: No Status: Acute Code(s): I25.10 - ATHSCL HEART DISEASE OF [place] CORONARY ARTERY W/O ANG PCTRS SNOMED Code(s): 22041262
[2021-12-26] MEDS: ATORVASTATIN 40 MG TAB PO SCH (20:37)
[2021-12-27] MEDS: MORPHINE SULFATE 4 MG/ML SYRINGE IV PRN ×2 (02:30→07:24)
[2021-12-27] MEDS: HEPARIN SODIUM,PORCINE/PF 5,000 UNIT/0.5 ML SYRINGE SQ SCH ×2 (07:19→15:25)
[2021-12-27] MEDS: PANTOPRAZOLE 40 MG TABLET PO SCH (07:20)
[2021-12-27] MEDS: amLODIPine 5 MG TAB PO SCH (07:20)
--- NOTE | 2021-12-27 09:38 | P.PN ---
Subjective Progress Note Date: 12/27/21 The patient is doing much better this morning after being placed in a well- padded splint. She has no other complaints this morning. Objective - Vital Signs Vital signs: Vital Signs Temp 97.4 F L 12/27/21 07:00 Pulse 85 12/27/21 07:00 Resp 18 12/27/21 07:00 BP 132/84 12/27/21 07:00 Pulse Ox 99 12/27/21 07:00 FiO2 Intake & Output 12/26/21 12/27/21 12/27/21 18:59 06:59 18:59 Intake Total 120 Output Total 400 Balance 120 -400 Intake: Oral 120 Output: Urine 400 Other: Voiding Method External Catheter External Catheter # Voids 1 - Exam The patient is resting comfortably in her hospital bed. A focused examination t he patient's right lower extremity shows a well-appearing short-leg splint. Her toes are warm and well perfused with brisk capillary refill. She is able to actively plantarflex and dorsiflex her toes. - Labs CBC & Chem 7: 12/25/21 20:47 12/25/21 20:47 Labs: Abnormal Lab Results - Last 24 Hours (Table) 12/25/21 12/26/21 Range/Units 20:47 15:05 Vitamin D 25-Hydroxy 7.9 L (30.0-100.0) ng/mL Urine Ketones 1+ H (Negative) Assessment and Plan Assessment: Minimally displaced, closed, right trimalleolar ankle fracture Vitamin D deficiency, 25-hydroxy vitamin D level of 7.9 Plan: Based on the patient's x-rays and computed tomography scan I recommend continued nonsurgical treatment with strict nonweightbearing and serial x-rays. Her vitamin D was also very low so I would like her on supplementation. Discharge planning is in process. She will likely need rehab. She will need follow-up in the office 1 week following discharge for repeat x-rays and conversion to a short-leg cast.
[2021-12-27] MEDS ORDERED: ERGOCALCIFEROL 1,250 MCG (50,000 IU) CAPSULE PO SCH (11:00)
--- NOTE | 2021-12-27 14:12 | P.PN ---
Subjective Progress Note Date: 12/27/21 Principal diagnosis: Ankle fracture, hypertension, recent history of stroke Patient with history of CVA, hypertension status post ankle fracture plan for conservative management Objective - Vital Signs Vital signs: Vital Signs Temp 97.4 F L 12/27/21 07:00 Pulse 85 12/27/21 07:00 Resp 18 12/27/21 07:00 BP 132/84 12/27/21 07:00 Pulse Ox 99 12/27/21 07:00 FiO2 Intake & Output 12/26/21 12/27/21 12/27/21 18:59 06:59 18:59 Intake Total 120 Output Total 400 Balance 120 -400 Intake: Oral 120 Output: Urine 400 Other: Voiding Method External Catheter External Catheter External Catheter # Voids 1 - Constitutional General appearance: Present: cooperative - Respiratory Respiratory: bilateral: CTA - Cardiovascular Rhythm: regular - Gastrointestinal General gastrointestinal: Present: normal bowel sounds - Integumentary Integumentary: Present: normal - Musculoskeletal Musculoskeletal Comment(s): Right ankle splint - Labs CBC & Chem 7: 12/25/21 20:47 12/25/21 20:47 Labs: Abnormal Lab Results - Last 24 Hours (Table) 12/25/21 12/26/21 Range/Units 20:47 15:05 Vitamin D 25-Hydroxy 7.9 L (30.0-100.0) ng/mL Urine Ketones 1+ H (Negative) Assessment and Plan (1) Cerebrovascular accident (CVA) Narrative/Plan: This time since patient that should conservatively with Lupron postsurgery will resume Plavix Current Visit: No Status: Acute Code(s): I63.9 - CEREBRAL INFARCTION, UNSPECIFIED SNOMED Code(s): 501250965 (2) CAD (coronary artery disease) Narrative/Plan: will continue outpatient regimen Current Visit: No Status: Acute Code(s): I25.10 - ATHSCL HEART DISEASE OF [place] CORONARY ARTERY W/O ANG PCTRS SNOMED Code(s): 94416797
[2021-12-27] MEDS: HYDROcodone/APAP 5-325MG 1 EACH TAB PO PRN (18:00)
[2021-12-27] MEDS: ATORVASTATIN 40 MG TAB PO SCH (21:37)
[2021-12-28] MEDS: HEPARIN SODIUM,PORCINE/PF 5,000 UNIT/0.5 ML SYRINGE SQ SCH ×4 (00:06→21:51)
[2021-12-28] MEDS: HYDROcodone/APAP 5-325MG 1 EACH TAB PO PRN ×4 (00:06→21:54)
[2021-12-28] MEDS: PANTOPRAZOLE 40 MG TABLET PO SCH (08:38)
[2021-12-28] MEDS: CLOPIDOGREL 75 MG TAB PO SCH (08:38)
[2021-12-28] MEDS: amLODIPine 5 MG TAB PO SCH (08:38)
[2021-12-28] MEDS: CHOLECALCIFEROL 25 MCG (1000 IU) TABLET PO SCH (08:38)
[2021-12-28] MEDS: CHLORTHALIDONE 25 MG TAB PO SCH (08:38)
[2021-12-28] MEDS: POTASSIUM CHLORIDE ER 10 MEQ TAB.ER.PRT PO SCH (08:39)
[2021-12-28] MEDS: FOLIC ACID 1 MG TAB PO SCH (08:39)
[2021-12-28 10:52] VITALS: BMI 19.0
--- NOTE | 2021-12-28 15:58 | P.PN ---
Subjective Progress Note Date: 12/28/21 This patient is a 66-year-old female admitted to orthopedics after sustaining a right trimalleolar closed ankle fracture. She is admitted for rehab placement. Patient is examined bedside this morning. She states her pain in the ankle is manageable at this time. She is currently in a well-padded bulky Chávez splint. Social work is consulted for discharge planning. There were no new complaint at this time. Patient denies numbness or tingling of the right lower extremity. Objective - Vital Signs Vital signs: Vital Signs Temp 97.9 F 12/28/21 15:00 Pulse 66 12/28/21 15:00 Resp 18 12/28/21 15:00 BP 112/74 12/28/21 15:00 Pulse Ox 98 12/28/21 15:00 FiO2 Intake & Output 12/27/21 12/28/21 12/28/21 18:59 06:59 18:59 Intake Total 120 300 Balance 120 300 Weight 56.699 kg Intake: Oral 120 300 Other: Voiding Method External Catheter # Voids 1 1 1 - Exam On examination, patient is sitting up in bed in no apparent distress. She is alert and oriented 3. On inspection of the right lower extremity, there is a clean, dry, intact bulky Chávez splint placed. The visible portion of the toes are warm and well perfused with brisk capillary refill. Patient is able to wiggle toes appropriately. There is no pain with passive range of motion of the toes. - Labs CBC & Chem 7: 12/25/21 20:47 12/25/21 20:47 Assessment and Plan Assessment: Right trimalleolar ankle fracture, closed Vitamin D deficiency Plan: - Strict nonweightbearing right lower extremity. Keep splint clean, dry, intact. - Keep right ankle elevated for swelling and pain control. - Physical therapy for gait and balance training. - Pain management as needed. - Continue vitamin D supplementation. - Medical management per internal medicine team. - Social work consulted for discharge planning.
--- NOTE | 2021-12-28 21:04 | P.PN ---
Subjective Progress Note Date: 12/28/21 Hospital course This patient is a 66-year-old female admitted to orthopedics after sustaining a right trimalleolar closed ankle fracture. She is admitted to orthopedic service, Hospital medicine consulted for medical management. Placement to rehab is pending Subjective Patient seen and evaluated at bedside, today patient does not report any worsening of his breathing or report any new significant chest pain. Patient remains in no acute distress. Patient questions and concerns addressed at bedside, proper counseling done. Plan discussed with nursing staff. Objective General: non toxic, no acute distress, alert oriented to time place and person Head: atraumatic, normocephalic, symmetric Eyes: no lid lesion], anicteric sclera Mouth: no lip lesion, mucus membranes moist Cardiovascular: S1S2 reg rate and rhythm, no murmur, no gallop Lungs: Bilateral equal air entry, no wheezing no rhonchi no crackles. Abdominal: soft, nontender to palpation, no guarding, no appreciable organomegaly Ext: Right lower extremity in splint Neuro: Alert oriented to time place and person, exam grossly nonfocal Assessment and plan Hypertension Continue Norvasc Continue chlorthalidone History of CVA/TIA Continue aspirin and Plavix and statin Anxiety Continue Xanax as needed GERD Continue Protonix Ankle fracture Minimally displaced, closed, right trimalleolar ankle fracture your plan of management for splint care, your plan for weightbearing versus nonweightbearing Plan for physical therapy at rehab Your plan for pain management Continue vitamin D supplementation Thank you for this consultation we will follow along in the care of this patient with you Objective - Vital Signs Vital signs: Vital Signs Temp 97.9 F 12/28/21 15:00 Pulse 66 12/28/21 15:00 Resp 18 12/28/21 15:00 BP 112/74 12/28/21 15:00 Pulse Ox 98 12/28/21 15:00 FiO2 Intake & Output 12/28/21 12/28/21 12/29/21 06:59 18:59 06:59 Intake Total 300 Balance 300 Weight 56.699 kg Intake: Oral 300 Other: # Voids 1 1 - Labs CBC & Chem 7: 12/25/21 20:47 12/25/21 20:47
[2021-12-28] MEDS: ATORVASTATIN 40 MG TAB PO SCH (21:51)
[2021-12-28 23:05] VITALS: RESP 16
[2021-12-29] MEDS: CLOPIDOGREL 75 MG TAB PO SCH (09:02)
[2021-12-29] MEDS: FOLIC ACID 1 MG TAB PO SCH (09:02)
[2021-12-29] MEDS: PANTOPRAZOLE 40 MG TABLET PO SCH (09:02)
[2021-12-29] MEDS: POTASSIUM CHLORIDE ER 10 MEQ TAB.ER.PRT PO SCH (09:02)
[2021-12-29] MEDS: CHOLECALCIFEROL 25 MCG (1000 IU) TABLET PO SCH (09:02)
[2021-12-29] MEDS: amLODIPine 5 MG TAB PO SCH (09:03)
[2021-12-29] MEDS: HEPARIN SODIUM,PORCINE/PF 5,000 UNIT/0.5 ML SYRINGE SQ SCH ×2 (09:03→16:09)
[2021-12-29] MEDS: CHLORTHALIDONE 25 MG TAB PO SCH (09:03)
[2021-12-29] MEDS: HYDROcodone/APAP 5-325MG 1 EACH TAB PO PRN (09:06)
[2021-12-29 09:12] LABS: HCT 36.1 % (37.2-46.3); HGB 11.8 g/dL (12.0-15.0); MCH 31.6 pg (27.0-32.0); MCHC 32.7 g/dL (32.0-37.0); MCV 96.5 fL (80.0-97.0); Mean Platelet Volume 10.9 fL (9.5-12.2); NRBC Per 100 WBC 0 /100 WBCS (0.0-0.0); Platelet Count 290 X 10*3/uL (140-440); RBC 3.74 X 10*6/uL (4.10-5.20); RDW 12.9 % (11.5-14.5); WBC 5.65 X 10*3/uL (4.50-10.00)
[2021-12-29 09:30] LABS: African American GFR (CKD) 104.6 (60.0-200.0); Anion Gap 12.5 mmol/L (10.00-18.00); BUN/Creat Ratio 17.71 Ratio (12.00-20.00); Blood Urea Nitrogen 12.4 mg/dL (9.0-27.0); Calcium 10.3 mg/dL (8.7-10.3); Carbon Dioxide 29.5 mmol/L (20.0-27.5); Non-African American GFR(CKD) 90.3 (60.0-200.0); Potassium 3.7 mmol/L (3.5-5.5)
--- NOTE | 2021-12-29 12:27 | P.DS ---
Providers Date of admission: 12/26/21 08:43 Expected date of discharge: 12/29/21 Attending physician: Lucas Sifuentes Consults: 12/25/21 20:56 Consult Physician Stat Consulting Provider: Erasmo Fowler Consult Reason/Comments: Medical management Do you want consulting provider notified?: Already Contacted Primary care physician: [facility] Course: This is a 66-year-old female who is admitted to [facility] on 12/25/21 after a ground-level fall and sustaining injury to the right ankle. X- rays and CT scan in the emergency department revealed a nondisplaced closed trimalleolar ankle fracture. She is admitted to our service for pain control and rehab placement. Patient has been accepted at [facility] today. Patient was examined bedside today. She states she is experiencing minimal pain in the right ankle. She is currently immobilized in a well padded bulky Chávez splint, which patient states is comfortable. She denies chest pain, shortness of breath, nausea, vomiting, numbness or tingling of the right lower extremity. No complaints the day of discharge. On examination, the patient is sitting up in bedside chair in no apparent distress. She is alert and oriented 3. On inspection of the right lower extremity, there is a clean, dry, intact bulky Chávez splint in place. The visible portion of the toes are warm and well perfused with brisk capillary refill distally. Patient is able to wiggle toes appropriately. There is no pain with passive range of motion of the toes. Patient is discharged to rehab today in good condition, pending medical clearance today. Patient will follow-up with Dr. Sifuentes in the office in 1 week for repeat x-rays. Please see med rec for accurate list of discharge medication. Patient Condition at Discharge: Good Plan - Discharge Summary New Discharge Prescriptions: New HYDROcodone/APAP 5-325MG [[place] 5-325] 1 tab PO Q6HR PRN 7 Days #30 tab PRN Reason: Pain Docusate [Colace] 100 mg PO DAILY #30 capsule Ergocalciferol [Vitamin D2 (1250 Mcg = 90851 Iu)] 1,250 mcg PO Q72H #20 caps ule Cholecalciferol [Vitamin D3 (25 Mcg = 1000 Iu)] 50 mcg PO DAILY 30 Days #30 tab No Action amLODIPine [Norvasc] 5 mg PO DAILY@0800 Acetaminophen Tab [Tylenol] 325 - 650 mg PO Q6HR PRN PRN Reason: Fever And/ Or Pain Chlorthalidone [Hygroton] 25 mg PO DAILY #30 tab Atorvastatin [Lipitor] 40 mg PO HS #30 tab Clopidogrel [Plavix] 75 mg PO DAILY #30 tab Potassium Chloride [Potassium Chloride ER] 8 meq PO DAILY ALPRAZolam [Xanax] 0.25 mg PO BID PRN PRN Reason: Anxiety Aspirin EC [Ecotrin Low Dose] 81 mg PO DAILY@0800 Pantoprazole Sodium [Protonix] 40 mg PO DAILY@0700 Folic Acid 1 mg PO DAILY Discharge Medication List ALPRAZolam [Xanax] 0.25 mg PO BID PRN 02/24/21 [History] Acetaminophen Tab [Tylenol] 325 - 650 mg PO Q6HR PRN 10/24/21 [History] Aspirin EC [Ecotrin Low Dose] 81 mg PO DAILY@0800 10/24/21 [History] Pantoprazole Sodium [Protonix] 40 mg PO DAILY@0700 10/24/21 [History] amLODIPine [Norvasc] 5 mg PO DAILY@0800 10/24/21 [History] Atorvastatin [Lipitor] 40 mg PO HS #30 tab 10/28/21 [Rx] Chlorthalidone [Hygroton] 25 mg PO DAILY #30 tab 10/28/21 [Rx] Clopidogrel [Plavix] 75 mg PO DAILY #30 tab 10/28/21 [Rx] Docusate [Colace] 100 mg PO DAILY #30 capsule 12/25/21 [Rx] Folic Acid 1 mg PO DAILY 12/26/21 [History] Potassium Chloride [Potassium Chloride ER] 8 meq PO DAILY 12/26/21 [History] HYDROcodone/APAP 5-325MG [[place] 5-325] 1 tab PO Q6HR PRN 7 Days #30 tab 12/28/21 [Rx] Cholecalciferol [Vitamin D3 (25 Mcg = 1000 Iu)] 50 mcg PO DAILY 30 Days #30 tab 12/29/21 [Rx] Ergocalciferol [Vitamin D2 (1250 Mcg = 55913 Iu)] 1,250 mcg PO Q72H #20 capsule 12/29/21 [Rx] Follow up Appointment(s)/Referral(s): Omkar Fernando MD [Primary Care Provider] - 1-2 days Lucas Sifuentes MD [Medical Doctor] - 1 Week Patient Instructions/Handouts: Foot Fracture in Adults (ED), Splint Care (ED) Activity/Diet/Wound Care/Special Instructions: Strict nonweightbearing right lower extremity. Keep bulky Chávez splint clean, dry, and intact until follow-up appointment in the office. Keep right lower extremity elevated for swelling and pain control. Take vitamin D as prescribed. Patient takes Plavix as home med, resume for blood clot prevention. Pain medication as needed. Follow-up in the office in one week with Dr. Sifuentes. Call the office with any questions or concerns,
[2021-12-29 15:06] VITALS: BP 113/75; PULSE 87; TEMP 98.7
--- NOTE | 2021-12-29 15:22 | P.PN ---
Subjective Progress Note Date: 12/29/21 Hospital course This patient is a 66-year-old female admitted to orthopedics after sustaining a right trimalleolar closed ankle fracture. She is admitted to orthopedic service, Hospital medicine consulted for medical management. Placement to rehab is pending Subjective Patient seen and evaluated at bedside, today patient does not report any worsening of his breathing or report any new significant chest pain. Patient remains in no acute distress. Patient questions and concerns addressed at bedside, proper counseling done. Patient is being discharged today by orthopedic surgery Objective General: non toxic, no acute distress, alert oriented to time place and person Head: atraumatic, normocephalic, symmetric Eyes: no lid lesion], anicteric sclera Mouth: no lip lesion, mucus membranes moist Cardiovascular: S1S2 reg rate and rhythm, no murmur, no gallop Lungs: Bilateral equal air entry, no wheezing no rhonchi no crackles. Abdominal: soft, nontender to palpation, no guarding, no appreciable organomegaly Ext: Right lower extremity in splint Neuro: Alert oriented to time place and person, exam grossly nonfocal Assessment and plan Hypertension Continue Norvasc Continue chlorthalidone History of CVA/TIA Continue aspirin and Plavix and statin Anxiety Continue Xanax as needed GERD Continue Protonix Ankle fracture Minimally displaced, closed, right trimalleolar ankle fracture your plan of man agement for splint care, your plan for weightbearing versus nonweightbearing Plan for physical therapy at rehab Your plan for pain management Continue vitamin D supplementation Thank you for this consultation we will follow along in the care of this patient with you Objective - Vital Signs Vital signs: Vital Signs Temp 98.7 F 12/29/21 15:06 Pulse 87 12/29/21 15:06 Resp 16 12/29/21 15:06 BP 113/75 12/29/21 15:06 Pulse Ox 100 12/29/21 15:06 FiO2 Intake & Output 12/28/21 12/29/21 12/29/21 18:59 06:59 18:59 Intake Total 358 Balance 358 Weight 56.699 kg Intake: Oral 358 Other: # Voids 1 1 2 - Labs CBC & Chem 7: 12/29/21 06:03 12/29/21 06:03 Labs: Abnormal Lab Results - Last 24 Hours (Table) 06/28/22 06/28/22 Range/Units 06:03 06:03 RBC 3.74 L (4.10-5.20) X 10*6/uL Hgb 11.8 L (12.0-15.0) g/dL Hct 36.1 L (37.2-46.3) % Carbon Dioxide 29.5 H (20.0-27.5) mmol/L
== END 2021-12-29 16:20 | DRG 563 ==
LOC: EC 17:04 → 6NMEDSUR 21:11 → OBSVTOIN 12-26 08:43
PROVIDERS: ADMIT Orthopaedic Surgery; ATTEND Orthopaedic Surgery
DX: S82.851A Displaced trimalleolar fracture of right lower leg, initial encounter for closed fracture (principal); K21.9 Gastro-esophageal reflux disease without esophagitis; E11.9 Type 2 diabetes mellitus without complications; E55.9 Vitamin D deficiency, unspecified; E78.5 Hyperlipidemia, unspecified; F17.200 Nicotine dependence, unspecified, uncomplicated; I11.0 Hypertensive heart disease with heart failure; G25.81 Restless legs syndrome; F41.0 Panic disorder [episodic paroxysmal anxiety]; I25.10 Atherosclerotic heart disease of native coronary artery without angina pectoris; I50.9 Heart failure, unspecified; F41.9 Anxiety disorder, unspecified; I48.91 Unspecified atrial fibrillation; X50.1XXA Overexertion from prolonged static or awkward postures, initial encounter; Y92.009 Unspecified place in unspecified non-institutional (private) residence as the place of occurrence of the external cause; I25.2 Old myocardial infarction; Z86.73 Personal history of transient ischemic attack (TIA), and cerebral infarction without residual deficits; Z79.02 Long term (current) use of antithrombotics/antiplatelets; Z79.82 Long term (current) use of aspirin; Z79.899 Other long term (current) drug therapy; Z98.890 Other specified postprocedural states; Z87.310 Personal history of (healed) osteoporosis fracture; Z82.49 Family history of ischemic heart disease and other diseases of the circulatory system
CPT/HCPCS: 29515; 80048; 80053; 81003; 82306; 85025; 85027; 85610; 85730; 96374; 99285

== ENCOUNTER 2023-12-08 21:20 | Emergency (ER) | payer MEDICARE, OTHER ==
[2023-12-08 21:43] VITALS: RESP 16
--- NOTE | 2023-12-08 23:01 | CT ---
EXAMINATION TYPE: CT brain moose [facility] DATE OF EXAM: 12/08/2023 COMPARISON: Prior trauma CT 2013 HISTORY: Walking to store after having some drinks (tequila shots) and fell while using a walker. She hit her head but doesn't recall this and was told she blacked out. Has c-collar on, is alert and niyah ented. Has pain in the left parietal area of her head. no open laceration noted but does have a bump there. Vitals reported as 'normal' as well as EKG. CT DLP: 1293.4 mGycm. Automated Exposure Control for Dose Reduction was Utilized. TECHNIQUE: CT scan of the head and cervical spine are performed without contrast. FINDINGS: There is no acute intracranial hemorrhage or midline shift identified. Mild ventricular a nd sulcal prominence. Mild/moderate low attenuation of the deep and periventricular white matter. The calvarium is intact. Bilateral aphakia is now present. The paranasal sinuses are grossly clear. Cervical spine is visualized in its entirety from C1 through upper thoracic levels and redemonstrates grade 1 retrolisthesis C4 on C5 and C5 on C6 without evidence of acute fracture or dislocation. Pre vertebral soft tissue appears within normal limits. The C1-C2 articulation is unremarkable. Vertebr al body heights are maintained. Mild disc space narrowing and spurring at C5-C6 level is redemonstrat ed. Spinal canal is grossly preserved. Lung apices are clear without pneumothorax. IMPRESSION: 1. There is no acute fracture or dislocation evident in the cervical spine. 2. No acute intracranial hemorrhage or midline shift is seen.
--- NOTE | 2023-12-08 23:12 | ED ---
Fall HPI - General Chief Complaint: Fall Stated Complaint: ETOH Time Seen by Provider: 12/08/23 21:50 Source: patient, EMS Mode of arrival: EMS - History of Present Illness Initial Comments: 68-year-old female brought in by EMS for evaluation post head injury. Patient was walking to the store using her walker. She states that she had about 5 shots of tequila this evening. She does not remember much about the fall. She states that her walker must of gotten stuck and did not move forward with her causing her to fall. She believes she lost consciousness. No blood thinners. C-collar was placed by EMS. She is alert and oriented at this time. Pain near the left parietal region of the head. No lacerations noted. She has no other injuries. No chest pain difficulty breathing or abdominal pain. No numbness or tingling. No vision or hearing changes. No nausea or vomiting. - Related Data Home Medications Medication Instructions Recorded Confirmed Acetaminophen Tab [Tylenol] 325 - 650 mg PO Q6HR PRN 10/24/21 12/26/21 Aspirin EC [Ecotrin Low Dose] 81 mg PO DAILY@0800 10/24/21 12/26/21 Pantoprazole Sodium [Protonix] 40 mg PO DAILY@0700 10/24/21 12/26/21 amLODIPine [Norvasc] 5 mg PO DAILY@0800 10/24/21 12/26/21 Folic Acid 1 mg PO DAILY 12/26/21 12/26/21 Potassium Chloride [Klor-Con 8 meq PO DAILY 12/26/21 12/26/21 Sprinkle] Previous Rx's Medication Instructions Recorded Atorvastatin [Lipitor] 40 mg PO HS #30 tab 10/28/21 Chlorthalidone [Hygroton] 25 mg PO DAILY #30 tab 10/28/21 Clopidogrel [Plavix] 75 mg PO DAILY #30 tab 10/28/21 Docusate [Colace] 100 mg PO DAILY #30 capsule 12/25/21 HYDROcodone/APAP 5-325MG [[place] 1 tab PO Q6HR PRN 7 Days #30 tab 12/28/21 5-325] ALPRAZolam [Xanax] 0.25 mg PO BID PRN #6 tab 12/29/21 Cholecalciferol [Vitamin D3 (25 50 mcg PO DAILY 30 Days #30 tab 12/29/21 Mcg = 1000 Iu)] Ergocalciferol [Vitamin D2 (1250 1,250 mcg PO Q72H #20 capsule 12/29/21 Mcg = 41804 Iu)] Allergies Allergy/AdvReac Type Severity Reaction Status Date / Time No Known Allergies Allergy Verified 12/09/23 15:06 Review of Systems ROS Statement: Those systems with pertinent positive or pertinent negative responses have been documented in the HPI. ROS Other: All systems not noted in ROS Statement are negative. Past Medical History Past Medical History: CVA/TIA, Hypertension, Myocardial Infarction ([place]) History of Any Multi-Drug Resistant Organisms: None Reported Past Psychological History: No Psychological Hx Reported Smoking Status: Current every day smoker Past Alcohol Use History: Occasional Past Drug Use History: None Reported - Past Family History Father History Unknown: Yes Additional Family Medical History / Comment(s): Father is . Pt is not sure of father's health history. Mother History Unknown: Yes Family Medical History: Hypertension Additional Family Medical History / Comment(s): Pt was raised by her grandparents and only recently reconnected with her mother and does not know her medical history. General Exam General appearance: alert, in no apparent distress Head exam: Present: atraumatic, normocephalic, other (Tenderness near the left parietal region) Eye exam: Present: normal appearance, PERRL, EOMI Neck exam: Present: normal inspection Respiratory exam: Present: normal lung sounds bilaterally. Absent: respiratory distress, wheezes, rales, rhonchi, stridor Cardiovascular Exam: Present: regular rate, normal rhythm, normal heart sounds. Absent: systolic murmur, diastolic murmur, rubs, gallop, clicks Neurological exam: Present: alert, oriented X3 Expanded Speech: Present: fluid speech Cranial nerves: EOM's Intact: Normal Eye Response: (4) open spontaneously Motor Response: (6) obeys commands Verbal Response: (5) oriented [place] Total: 15 Skin exam: Present: normal color Course Vital Signs 12/08/23 12/09/23 12/09/23 21:35 00:50 04:02 Temperature 97.2 F L 97.9 F Pulse Rate 67 88 77 Respiratory 16 16 16 Rate Blood Pressure 134/78 131/80 121/82 O2 Sat by Pulse 96 95 97 Oximetry Medical Decision Making - Medical Decision Making Was pt. sent in by a medical professional or institution (, PA, CRYPTOLOGIC TECHNICIAN OPERATOR/ANALYST, urgent care, hospital, or halfway...) When possible be specific @ -[No] Did you speak to anyone other than the patient for history (EMS, parent, family, police, friend...)? What history was obtained from this source @ -[No] Did you review nursing and triage notes (agree or disagree)? Why? @ -[I reviewed and agree with nursing and triage notes] Were old charts reviewed (outside hosp., previous admission, EMS record, old EKG, old radiological studies, urgent care reports/EKG's, halfway records)? Report findings @ -[No old charts were reviewed] Differential Diagnosis (chest pain, altered mental status, abdominal pain women, abdominal pain men, vaginal bleeding, weakness, fever, dyspnea, syncope, headache, dizziness, GI bleed, back pain, seizure, CVA, palpatations, mental health, musculoskeletal)? @ -Differential includes uncomplicated head injury, concussion, hemorrhage, fracture, this is not an all-inclusive list EKG interpreted by me (3pts min.). @ -[As above] X-rays interpreted by me (1pt min.). @ -[None done] CT interpreted by me (1pt min.). @ -CT shows no acute fracture or dislocation evident in the cervical spine. No acute intracranial hemorrhage or midline shift is seen U/S interpreted by me (1pt. min.). @ -[None done] What testing was considered but not performed or refused? (CT, X-rays, U/S, labs)? Why? @ -[None] What meds were considered but not given or refused? Why? @ -[None] Did you discuss the management of the patient with other professionals (professionals i.e. , PA, CRYPTOLOGIC TECHNICIAN OPERATOR/ANALYST, lab, RT, psych nurse, high school social studies teacher, acid wash operator, teacher, contract officer, case management specialist)? Give summary @ -[No] Was smoking cessation discussed for >3mins.? @ -[No] Was critical care preformed (if so, how long)? @ -[No] Were there social determinants of health that impacted care today? How? (Homelessness, low income, unemployed, alcoholism, drug addiction, transportation, low edu. Level, literacy, decrease access to med. care, detention, rehab)? @ -[No] Was there de-escalation of care discussed even if they declined (Discuss DNR or withdrawal of care, Hospice)? DNR status @ -[No] What co-morbidities impacted this encounter? (DM, HTN, Smoking, COPD, CAD, Cancer, CVA, ARF, Chemo, Hep., AIDS, mental health diagnosis, sleep apnea, morbid obesity)? @ -[None] Was patient admitted / discharged? Hospital course, mention meds given and route, prescriptions, significant lab abnormalities, going to OR and other [facility] nent info. @ -68-year-old female presenting chief complaint of head injury. Patient had a fall from standing, possible loss of consciousness and denies any blood thinners. States that she had 5 shots of tequila this evening. History and physical exam are conducted. CT is negative for cervical spine fracture or acute intracranial hemorrhage. Breath alcohol level is 0.187, patient is observed until sober and discharged. Follow-up with PCP. Report back to ER with any new or worsening symptoms. Discussed return parameters and answered all questions. Patient conveyed verbal understanding and agreed to the plan. I discussed this case in detail with my attending Dr. Marcial Undiagnosed new problem with uncertain prognosis? @ -[No] Drug Therapy requiring intensive monitoring for toxicity (Heparin, Nitro, Insulin, Cardizem)? @ -[No] Were any procedures done? @ -[No] Diagnosis/symptom? @ -Fall, head injury, alcohol intoxication Acute, or Chronic, or Acute on Chronic? @ -Acute Uncomplicated (without systemic symptoms) or Complicated (systemic symptoms)? @ -Uncomplicated Side effects of treatment? @ -[No] Exacerbation, Progression, or Severe Exacerbation? @ -[No] Poses a threat to life or bodily function? How? (Chest pain, [place], [place], pneumonia, PE, COPD, DKA, ARF, appy, cholecystitis, CVA, Diverticulitis, Homicidal, Suicidal, threat to staff... and all critical care pts) @ -Unlikely at this time Disposition Clinical Impression: Fall, Alcohol intoxication Disposition: HOME SELF-CARE Condition: Good Instructions (If sedation given, give patient instructions): Head Injury (ED) Is patient prescribed a controlled substance at d/c from ED?: No Referrals: Zain Nye MD [Primary Care Provider] - 1-2 days Time of Disposition: 04:15
[2023-12-09 00:54] VITALS: TEMP 97.9
[2023-12-09 04:04] VITALS: BP 121/82; PULSE 77
== END 2023-12-09 04:14 | disposition home or self-care (01) ==
LOC: EC 21:20 → MERGE 21:20 → EDBD 21:20 → EC 12-09 04:14
DX: S09.90XA Unspecified injury of head, initial encounter (principal); F10.129 Alcohol abuse with intoxication, unspecified; F17.200 Nicotine dependence, unspecified, uncomplicated; W01.0XXA Fall on same level from slipping, tripping and stumbling without subsequent striking against object, initial encounter
CPT/HCPCS: 70450; 72125; 82075; 99284